=== PATIENT | female | born 1945 | race Caucasian/White ===

== ENCOUNTER → 2018-01-30 14:05 | Outpatient (CLI) | payer MEDICARE, SELFPAY ==
--- NOTE | 2018-01-30 14:25 | RAD_ITS ---
STUDY: X-RAY - LUMBAR SPINE REASON FOR EXAM: Female, 72 years old. Pain TECHNIQUE: 5 view(s) of the lumbar spine were obtained. COMPARISON: None FINDINGS: There is no evidence of fracture or dislocation in the lumbar spine. The vertebral body heights are well-maintained. There are mild degenerative changes noted with disc space narrowing and facet hypertrophy. There are atherosclerotic calcifications noted in the aorta. There are rounded calcifications in the pelvis which likely represent fibroids. RAD/L/S Spine Min 4 Views IMPRESSION: No fracture or dislocation in the lumbar spine. Mild degenerative changes. Atherosclerosis. Rounded calcifications in the pelvis which likely represent fibroids. Electronically Signed: Dereje Huggins, at 16:57 EDT Tel , Service support ,
== END ==
PROVIDERS: Visit Provider Chiropractor
DX: S33.5XXA Sprain of ligaments of lumbar spine, initial encounter (principal)
CPT/HCPCS: 72110

== ENCOUNTER 2020-03-14 12:27 | Emergency (ER) | payer MEDICARE, SELFPAY ==
[2020-03-14 12:28] VITALS: BP 153/90; PULSE 85; RESP 17; TEMP 36.4; O2SAT 98; BMI 29.5
--- NOTE | 2020-03-14 12:32 | EKG12_ITS ---
Test Reason : DIZZINESS Blood Pressure : / mmHG Vent. Rate : 081 BPM Atrial Rate : 081 BPM P-R Int : 166 ms QRS Dur : 082 ms QT Int : 416 ms P-R-T Axes : 065 026 034 degrees QTc Int : 483 ms Normal sinus rhythm Normal ECG Confirmed by FAUSTINO BALDWIN, EDDIE ([id number]), continuity editor JAMIA CHANDLER ([id number]) on 03/17/2020 9:50:01 AM Referred By: MARITZA/ARON Confirmed By:EDDIE HARMON MD
--- NOTE | 2020-03-14 12:32 | CT_ITS ---
STUDY: CT BRAIN WITHOUT CONTRAST REASON FOR EXAM: Female, 75 years old. VERTIGO RADIATION DOSAGE (If Supplied By Facility): CTDIvol = ( 44.99 ) mGy, DLP = ( 745.49 ) mGycm TECHNIQUE: Transaxial CT imaging of the brain was performed without administration of intravenous contrast material. Individualized dose optimization techniques were used for this CT. COMPARISON: No relevant priors. FINDINGS: Normal soft tissue structures. Normal calvarium. Normal size ventricles and extra-axial spaces for the patient''s age. Normal white matter tracts of the cerebral hemispheres. Normal basal ganglia and thalami. Normal brainstem. Normal cerebellum. There is no intracranial hemorrhage. There are no findings of an acute ischemic infarction. Normal visualized paranasal sinuses. CT/Brain/Head without Contrast IMPRESSION: No intracranial hemorrhage or mass effect. Electronically Signed: Ananth Diego MD ([place]) at 13:31 EDT , Service support ,
--- NOTE | 2020-03-14 12:34 | RAD_ITS ---
STUDY: X-RAY CHEST REASON FOR EXAM: Female, 75 years old. SOB, NAUSEA TECHNIQUE: AP COMPARISON: None. FINDINGS: EKG leads project over the chest. The lungs are clear and expanded. There is no demonstrated pleural abnormality. Normal size heart. Normal mediastinum and dario. Normal visualized pulmonary arteries. Normal visualized aortic arch and descending thoracic aorta. Normal visualized thoracic spine. Normal visualized ribs, clavicles, and shoulders. There is a large hiatal hernia. RAD/Chest 1 View (Portable) IMPRESSION: No airspace consolidation or pleural effusion. Large hiatal hernia. Electronically Signed: Ananth Diego MD ([place]) at 13:14 EDT , Service support ,
--- NOTE | 2020-03-14 12:37 | ED.VIS.GEN ---
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 She feels lightheaded in her head but denies a headache. She has had some blurry vision with this but no diplopia. She denies any focal peripheral neurologic symptoms or deficits. She has been able to walk okay but feels worse when she does so. States she has had disequilibrium before and it felt similar to this but cannot remember any details and denies any known history of stroke or TIA. She denies any recent illness or fall/injury, but states she has had intermittent mild vaginal bleeding for multiple months. She cannot remember totally how long. She states that she feels like there is a dropped uterus or bladder or something down there. She does not like to see doctors so she has not had this addressed yet. Daughter called EMS according to the paramedics, and said that she was feeling short of breath although the patient denies this. When postulating whether she was breathing hard when she felt very nauseated, the patient states she thinks that was what it was but she has had no trouble breathing or chest discomfort today. Past Medical History - Allergies and Home Meds Allergies/Adverse Reactions: Allergies venom-honey bee [bee venom (honey bee)] Allergy (Verified 03/14/20 12:33) Unknown Primary Care Physician: Care Physician,No Primary [Primary Care Provider] - Smoking Status: Former smoker Review of Systems General: Reports: Malaise. Denies: Chills, Fever, Sweats Eyes: Denies: Visual changes - bilaterally, Diplopia ENT: Denies: Bilateral ear pain, Rhinorrhea, Sore throat Cardiovascular: Denies: Chest pain, Palpitations, Heart racing Respiratory: Denies: Dyspnea, Cough, Dyspnea on exertion Gastrointestinal: Reports: Nausea, Vomiting. Denies: Abdominal pain, Diarrhea, Melena, Hematochezia Genitourinary: Denies: Dysuria, Hematuria, Frequency Musculoskeletal: Denies: Neck pain, Back pain, Swelling, Extremity Pain Skin: Denies: Rash, Wounds Neurological: Reports: - - Dizziness. See HPI.. Denies: Headache, Weakness, Numbness Physical Exam Vital Signs/Narrative: Vital Signs Temp Pulse Resp BP Pulse Ox 03/14/20 12:28 97.6 F L 85 17 153/90 H 98 Inital Vital Signs reviewed: Yes General: Well nourished, Well developed, No Acute Distress Head: Normocephalic, Atraumatic Eyes: Perrl, EOMI ENT: Moist mucous membranes, No rhinorrhea, TM's clear, - - Posterior oropharynx clear Neck: Supple, Nontender, - - No carotid bruit bilaterally Cardiovascular: Regular rate, Regular rhythm, No murmurs. Negative for: Tachycardia Respiratory: No distress, CTA bilaterally, Chest nontender Abdomen: Soft, Nontender, Nondistended, Normal bowel sounds Back: Nontender, Normal Inspection. Negative for: CVA tenderness Extremities: Nontender, No edema Skin: Normal color, No rash, No Trauma Neurological: Alert, Oriented x3, Cranial nerves II-XII grossly intact, Normal Strength, Normal Sensation, Normal DTR, - - Normal erfswq-qk-luql and manb-vq-spky bilaterally Psychological: Normal affect, Normal Mood Diagnostic/Tx/Re-eval Impressions Brain CT 03/14/20 12:32 IMPRESSION: No intracranial hemorrhage or mass effect. Electronically Signed: Ananth Diego MD ([place]) at 13:31 EDT , Service support , Chest X-Ray 03/14/20 12:34 IMPRESSION: No airspace consolidation or pleural effusion. Large hiatal hernia. Electronically Signed: Ananth Diego MD ([place]) at 13:14 EDT , Service support , 03/14/20 12:32 Brain/Head without Contrast [CT] Stat 03/14/20 12:34 Chest 1 View (Portable) [RAD] Stat Laboratory Results 03/14/20 03/14/20 03/14/20 12:30 12:30 13:40 WBC 11.5 H RBC 4.35 Hgb 14.5 Hct 43.9 MCV 100.9 H MCH 33.3 H MCHC 33.0 RDW Std Deviation 51.8 H RDW Coeff of Venkata 13.8 Plt Count 270 MPV 9.6 Immature Gran % (Auto) 2.300 H Neut % (Auto) 81.4 H Lymph % (Auto) 10.2 L [place] % (Auto) 5.0 Eos % (Auto) 0.3 Baso % (Auto) 0.8 Absolute Neuts (auto) 9.4 H Absolute Lymphs (auto) 1.17 Nucleated RBC % 0 Sodium 138 Potassium 3.8 Chloride 106 Carbon Dioxide 25.0 Anion Gap 7 BUN 15 Creatinine 0.84 Estim Creat Clear Calc 45.06 Est GFR (MDRD) Af Amer 84 Est GFR (MDRD) Non-Af 70 BUN/Creatinine Ratio 17.8 Glucose 125 H Calcium 9.2 Troponin I < 0.015 Urine Color Yellow Urine Clarity Sl. Cloudy Urine pH 5.0 Ur Specific [place] 1.020 Urine Protein 15 H Urine Glucose (UA) Normal Urine Ketones Negative Urine Occult Blood 10 H Urine Nitrite Positive H Urine Bilirubin Negative Urine Urobilinogen Normal Ur Leukocyte Esterase 25 H Urine RBC 0 SEEN Urine WBC 0-5 SEEN Ur Squamous Epith Cells 0 SEEN Urine Bacteria 2+ Urine Mucus 0 SEEN - Rhythm Strip Rhythm Strip: Sinus Rhythm Rate: 80 Ectopy: None - EKG Initial EKG Interpretation: Sinus Rhythm, No Acute Injury Pattern - normal EKG Prior: Unchanged - Medical Decision Making Other than the possibility of a urinary tract infection, patient's work-up is negative and unremarkable. She states she had a history of disequilibrium, and noticed the symptoms when she woke up today, and did say that when she was walking she felt a little off balance, which she initially denied but as she thought about it discussed this later. I think this is probably peripheral vertigo in nature, she felt a little better after meclizine, but was still nauseated even after Zofran. In performing straight catheterization for urine sample, it was noted that she has a very large and prominent uterine prolapse, there is no current bleeding, but evidence of recent light bleeding from the uterus. 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 This could be helping to keep her from emptying her bladder completely and giving her urinary tract infection, which may or may not be related to any of her other symptoms here today. Her urinalysis is ambiguous, but we will assume it could represent infection and send it for culture, started her on an antibiotic. We gave her Reglan in addition, for her persistent nausea, but before that she ambulated and did well. We offered her admission, but she states that she is walking okay and prefers to go home. She does live alone which was recognized. Prescriptions given, discussed reasons to return. Refer to PCP as well as gynecology. ED Disposition - Plan for ED Patient: Disposition: Home or Assisted Living Diagnosis: Peripheral vertigo, Postmenopausal vaginal bleeding, Uterine prolapse, UTI (urinary tract infection) Instructions: ED Vertigo Unspecified, What Is Pelvic Organ Prolapse? Prescriptions: Meclizine HCl [Antivert] 25 mg PO 4X/DAY PRN PRN #16 tab PRN Reason: Dizziness Prescription Printed Cephalexin [Keflex] 500 mg PO Q6 #28 cap Prescription Printed Ondansetron [Zofran Odt] 8 mg PO Q8H PRN PRN #20 tab PRN Reason: Nausea Prescription Printed Referrals: Tiffani Pantoja MD [STAFF PHYSICIAN] - (call for appt) Shady Bardales III, MD [STAFF PHYSICIAN] - (call for appt)
[2020-03-14] MEDS: Ondansetron 4 MG/2 ML Vial IV (12:40)
[2020-03-14 12:42] LABS: Absolute Lymphocyte Count 1.17 X10^3/uL (0.83-4.51); Absolute Neutrophil Count 9.4 X10^3/uL (2.0-7.7); Basophil# 0.09 X10^3/uL; Basophil% 0.8 % (0-1); Eosinophil# 0.03 X10^3/uL; Eosinophils% 0.3 % (0-5); Hematocrit 43.9 % (37-47); Hemoglobin 14.5 g/dL (12.0-15.0); Lymphocyte # 1.17 X10^3/ul (4.0); Lymphocyte % 10.2 % (19-41); Mean Corpuscular Hgb 33.3 pg (27.0-32.0); Mean Corpuscular Volume 100.9 fL (81-99); Mean Platelet Vol. 9.6 fl (6.2-12.0); Monocyte# 0.58 X10^3/uL; NRBC Flagged by Analyzer 0 % (0-5); Neutrophil # 9.39 X10^3/uL (2.7-7.7); Neutrophil % 81.4 % (47-70); Platelet Count 270 K/mm3 (150-450); RBC Distribution Width CV 13.8 % (11.6-14.6); RBC Distribution Width SD 51.8 fl (35.1-43.9); Red Blood Count 4.35 M/mm3 (4.2-5.4); White Blood Count 11.5 K/mm3 (4.4-11.0)
[2020-03-14] MEDS: Meclizine HCl 25 MG Tablet PO (12:54)
[2020-03-14 13:00] LABS: Anion Gap 7 (5-15); BUN 15 mg/dL (7-18); BUN/Creat Ratio 17.8 RATIO (10-20); Calcium,Total 9.2 mg/dL (8.5-10.1); Chloride 106 mmol/L (98-107); Creatinine, Serum 0.84 mg/dL (0.55-1.02); EST Glomerular Filtration Rate 70 mL/min (>60); Est Glom Filt Rate - Afr Amer 84 mL/min (>60); Estimated Creatinine Clearance 45.06 ml/min; Glucose 125 mg/dL (74-106); Potassium 3.8 mmol/L (3.5-5.1); Sodium Level 138 mmol/L (136-145)
[2020-03-14 13:45] LABS: Mucous, Urine 0 SEEN /hpf (<or=2+); Red Blood Cells-Urine 0 SEEN /hpf (0-5); Squamous Epithelial Cells - UA 0 SEEN /hpf (5-10)
[2020-03-14 13:46] LABS: Color, Urine Yellow (Yellow); Glucose, Dipstick Normal (Normal); Ketone-Dipstick Negative (Negative); Leukocyte Esterase-Dipstick 25 /ul (Negative); Nitrite-Dipstick Positive (Negative); Occult Blood-Urine 10 /ul (Negative); Protein-Dipstick 15 mg/dl (Negative); Urine Bilirubin Dipstick Negative (Negative); Urine Clarity Sl. Cloudy (Clear); Urine Urobilinogen Normal (Normal)
[2020-03-14 13:51] LABS: Bacteria 2+ /hpf (None Seen); White Blood Cells 0-5 SEEN /hpf (0-5)
[2020-03-14 14:27] VITALS: BP 156/89; PULSE 79; RESP 16; O2SAT 97
[2020-03-14] MEDS: Metoclopramide 10 MG/2 ML Vial 5 MG IV (15:13)
[2020-03-14 15:35] VITALS: BP 134/83; PULSE 83; RESP 14; O2SAT 96
== END 2020-03-14 15:46 | disposition home or self-care (01) ==
PROVIDERS: Emergency Provider Emergency Medicine
DX: H81.399 Other peripheral vertigo, unspecified ear (principal); N39.0 Urinary tract infection, site not specified; N81.4 Uterovaginal prolapse, unspecified; N95.0 Postmenopausal bleeding; Z87.891 Personal history of nicotine dependence
CPT/HCPCS: 70450; 71045; 80048; 81001; 84484; 85025; 87077; 87086; 87088; 87186; 93005; 96361; 96374; 96375; 99285; J7040; P9612; A4216; J2405

== ENCOUNTER 2021-06-06 10:48 | Emergency (ER) | payer MEDICARE, SELFPAY ==
[2021-06-06 10:49] VITALS: BP 165/107; PULSE 98; RESP 17; TEMP 35.7; O2SAT 96; BMI 24.7
[2021-06-06 11:25] LABS: Absolute Lymphocyte Count 1.19 X10^3/uL (0.83-4.51); Absolute Neutrophil Count 7.3 X10^3/uL (2.0-7.7); Basophil# 0.08 X10^3/uL; Basophil% 0.8 % (0-1); Hematocrit 42.7 % (37-47); Hemoglobin 14.3 g/dL (12.0-15.0); Lymphocyte # 1.19 X10^3/ul (0.83-4.51); Lymphocyte % 11.8 % (19-41); Mean Corp Hgb Conc 33.5 g/dL (32-36); Mean Corpuscular Hgb 32.6 pg (27.0-32.0); Mean Corpuscular Volume 97.5 fL (81-99); Monocyte# 1.06 X10^3/uL; Monocyte% 10.5 % (0-10); NRBC Flagged by Analyzer 0 % (0-5); Neutrophil # 7.32 X10^3/uL (2.7-7.7); Neutrophil % 72.9 % (47-70); Platelet Count 450 K/mm3 (150-450); RBC Distribution Width CV 14.2 % (11.6-14.6); Red Blood Count 4.38 M/mm3 (4.2-5.4); White Blood Count 10.1 K/mm3 (4.4-11.0)
[2021-06-06 11:37] LABS: Anion Gap 9 (5-15); BUN 16 mg/dL (7-18); BUN/Creat Ratio 19.3 RATIO (10-20); Calcium,Total 9.2 mg/dL (8.5-10.1); Chloride 104 mmol/L (98-107); Creatinine, Serum 0.83 mg/dL (0.55-1.02); EST Glomerular Filtration Rate 71 mL/min (>60); Est Glom Filt Rate - Afr Amer 86 mL/min (>60); Estimated Creatinine Clearance 44.89 ml/min; Glucose 115 mg/dL (74-106); Potassium 3.8 mmol/L (3.5-5.1); Sodium Level 137 mmol/L (136-145)
--- NOTE | 2021-06-06 11:37 | EDS_ITS ---
HPI HPI - Female History of Present Illness Chief Complaint: Female C/O Informant: patient Narrative Narrative: Patient presents secondary to bleeding from her prolapsed uterus. Patient states she had a prolapsed uterus for several months to maybe even years. She states it will bleed intermittently but lately has been bleeding heavier. She has not seen a OIL AND G[employer] LEASE PU[employer]ER doctor and states she does not have a primary care doctor. PFSH PFSH Medical History no medical history no medical history Home Medications ascorbic acid (vitamin C) [Vitamin C] 1,000 mg PO DAILY 06/06/21 [History Last Taken Unknown] cholecalciferol (vitamin D3) [Vitamin D3] 25 mcg PO DAILY 06/06/21 [History Last Taken Unknown] [id number]-MI-[id number]-Ji-pyehomg-lutein [Centrum] 1 tab PO DAILY 06/06/21 [History Last Taken Unknown] Allergy/AdvReac Type Severity Reaction Status Date / Time venom-honey bee Allergy Unknown Verified 06/06/21 10:53 [bee venom (honey bee)] Social History Smoking Status: Never smoker ROS ROS ED Constitutional Constitutional ED: Denies chills or fever(s) Eyes Eyes: Denies change in vision ENT ENT ED: Denies sore throat Cardiovascular Cardiovascular: Denies chest pain Respiratory/Chest Respiratory/Chest: Denies cough or dyspnea Gastrointestinal Gastrointestinal: Denies abdominal pain, diarrhea, nausea or vomiting Genitourinary Genitourinary ED: Denies dysuria Musculoskeletal Musculoskeletal: Reports other Details: Back pain ; Denies back pain Integumentary Denies rash Neurologic Neurologic: Denies headache(s) or weakness Allergic/Immunologic Allergic/Immunologic ED: Denies urticaria EXAM Physical Exam Const Vital Signs: 06/06/21 10:49 Temperature 96.2 F L Temperature Source Temporal Pulse Rate 98 Respiratory Rate 17 Blood Pressure 165/107 H Blood Pressure Mean 126 Pulse Ox 96 Oxygen Delivery Method Room Air Positive well nourished and well developed General Appearance ED: well developed Eyes PERRL Neck supple Chest Wall inspection of chest normal and palpation of chest normal Resp normal respiratory effort and clear to auscultation bilaterally Cardio regular rate and regular rhythm GI soft to palpation and non-tender Narrative: Prolapsed uterus noted with a 1 cm diameter ulceration with mild bleeding noted on the inferior aspect. Neuro oriented x3 Sensorium / Orientation: alert Psych mental status grossly normal MDM MDM MDM Narrative Medical decision making narrative: Blood work obtained. Lab Data Attestation: I reviewed the patient's lab results. Labs: Laboratory Results - last 24 hr 06/06/21 06/06/21 06/06/21 11:15 11:15 11:50 WBC 10.1 RBC 4.38 Hgb 14.3 Hct 42.7 MCV 97.5 MCH 32.6 H MCHC 33.5 RDW Std Deviation 51.0 H RDW Coeff of Venkata 14.2 Plt Count 450 MPV 10.0 Immature Gran % (Auto) 2.000 H Neut % (Auto) 72.9 H Lymph % (Auto) 11.8 L [place] % (Auto) 10.5 H Eos % (Auto) 2.0 Baso % (Auto) 0.8 Absolute Neuts (auto) 7.3 Absolute Lymphs (auto) 1.19 Nucleated RBC % 0 PT 13.1 INR 1.1 APTT 31.4 Sodium 137 Potassium 3.8 Chloride 104 Carbon Dioxide 24.0 Anion Gap 9 BUN 16 Creatinine 0.83 Estim Creat Clear Calc 44.89 Est GFR (MDRD) Af Amer 86 Est GFR (MDRD) Non-Af 71 BUN/Creatinine Ratio 19.3 Glucose 115 H Calcium 9.2 Treatment and Re-Evaluation Comments:: Lab work unremarkable. I discussed case with Jacklyn You, on-call for [facility] COMPUTER CUSTOMER SUPPORT SPECIALIST. She stated that patient would need to be seen in the office this week to discuss possible hormone therapy or surgery. Surgifoam and Vaseline gauze were placed over the area along with pads. With this was all discussed with the patient there is no family member in the room that states that she saw An Law this morning and she will see her this week in the office. Discharge Plan Triage Chief Complaint: Female C/O Other Complaint: Vag Bleeding ED Provider: Kya Garcia Dx/Rx/DC Orders Clinical Impression: Uterine prolapse Instructions: Pelvic Organ Prolapse Prescriptions: No Action Vitamin C 1,000 mg Tablet Extended Release 1,000 mg PO DAILY RF: 0 cholecalciferol (vitamin D3) [Vitamin D3] 25 mcg (1,000 unit) Capsule 25 mcg PO DAILY RF: 0 Centrum 0.4-162-18 mg Tablet 1 tab PO DAILY RF: 0 Primary Care Provider: Care Physician,No Primary Referrals: An Law MD [STAFF PHYSICIAN] - As soon as possible Care Physician,No Primary [Primary Care Provider] - Disposition Disposition: Home, Self Care
[2021-06-06 12:25] LABS: International Normalized Ratio 1.1; Prothrombin Time (Protime)PT. 13.1 SECONDS (11.7-14.9)
[2021-06-06 12:26] LABS: Partial Thromboplast Time 31.4 Seconds (24.1-36.2)
== END 2021-06-06 13:17 | disposition home or self-care (01) ==
PROVIDERS: Emergency Provider Emergency Medicine
DX: N81.4 Uterovaginal prolapse, unspecified (principal); N93.9 Abnormal uterine and vaginal bleeding, unspecified
CPT/HCPCS: 80048; 85025; 85610; 85730; 99283; A4216

== ENCOUNTER 2021-07-08 16:14 | Emergency (ER) | payer MEDICARE, SELFPAY ==
[2021-07-08 16:16] VITALS: BP 139/86; PULSE 72; RESP 15; TEMP 36.6; O2SAT 96; BMI 28.6
[2021-07-08 16:35] VITALS: BP 139/86; PULSE 70; RESP 20; O2SAT 96
--- NOTE | 2021-07-08 17:20 | RAD_ITS ---
STUDY: X-RAY CHEST REASON FOR EXAM: Female, 76 years old. Cough. Flu symptoms for one week. TECHNIQUE: Single AP portable view of the chest. COMPARISON: 03/14/2020. FINDINGS: The lungs are clear and expanded. There is no demonstrated pleural abnormality. Normal size heart. Normal mediastinum and dario. Normal visualized pulmonary arteries. Normal visualized aortic arch and descending thoracic aorta. No osseous changes. 10 seen is a large retrocardiac hiatal hernia unchanged from prior study. RAD/Chest 1 View (Portable) IMPRESSION: Retrocardiac hiatal hernia. There is no cardiopulmonary disease or major interval change. Electronically Signed: Angel Geiger DO at 18:03 EST Tel [phone], Service support ,
--- NOTE | 2021-07-08 17:20 | EKG12_ITS ---
Test Reason : WEAKNESS Blood Pressure : / mmHG Vent. Rate : 067 BPM Atrial Rate : 067 BPM P-R Int : 156 ms QRS Dur : 074 ms QT Int : 410 ms P-R-T Axes : 021 010 029 degrees QTc Int : 433 ms Normal sinus rhythm Normal ECG Confirmed by FAUSTINO BALDWIN, EDDIE ([id number]), story editor KENZIE BENTON ([id number]) on 07/21/2021 7:35:15 AM Referred By: JUDY Confirmed By:EDDIE HARMON MD
--- NOTE | 2021-07-08 17:21 | EDS_ITS ---
HPI History of Present Illness Chief Complaint: Weakness Informant: patient Narrative Narrative: Patient states that she just has not felt well this week. She thinks it might of started Sunday but not sure. She had a cough once or twice but that is not continuing and she is not short of breath. She never had sputum production. She has no nasal congestion. No myalgias. No chest pain. No abdominal pain she has had nausea but never vomited. But she admits she is just not eating and drinking because of the nausea. She has had some watery diarrhea several times but no blood. She denies urinary symptoms. She denies fevers. She is not immunized against Covid. Patient has no chronic medical conditions Medications include vitamins only No known drug allergies No abdominal surgeries Non-smoker lives independently [facility] Home Medications ascorbic acid (vitamin C) [Vitamin C] 1,000 mg PO DAILY 06/06/21 [History Last Taken Unknown] cholecalciferol (vitamin D3) [Vitamin D3] 25 mcg PO DAILY 06/06/21 [History Last Taken Unknown] uh-[id number]-XD-Zf-Nz-lnvlbvv-lutein [Centrum] 1 tab PO DAILY 06/06/21 [History Last Taken Unknown] ondansetron 4 mg PO Q8H PRN #10 tab 07/08/21 [Rx Last Taken Unknown] Allergy/AdvReac Type Severity Reaction Status Date / Time venom-honey bee Allergy Unknown Verified 06/06/21 10:53 [bee venom (honey bee)] Social History Smoking Status: Never smoker ROS ROS ED Constitutional Constitutional ED: Denies chills, fever(s) or subjective Eyes Eyes: Denies change in vision ENT ENT ED: Denies rhinorrhea or sore throat Cardiovascular Cardiovascular: Denies chest pain Respiratory/Chest Respiratory/Chest: Reports cough; Denies dyspnea, dyspnea on exertion or sputum Gastrointestinal Gastrointestinal: Reports diarrhea and nausea; Denies abdominal pain or vomiting Genitourinary Genitourinary ED: Denies dysuria or hematuria Musculoskeletal Musculoskeletal: Denies arthralgias or myalgias Integumentary Denies rash Neurologic Neurologic: Denies headache(s) or weakness Psychiatric Psychiatric: Denies anxiety or depression Endocrine Endocrinology: Denies polydipsia or polyuria Allergic/Immunologic Allergic/Immunologic ED: Denies mouth swelling or urticaria EXAM Physical Exam Const Vital Signs: 07/08/21 16:16 07/08/21 16:18 07/08/21 16:35 Temperature 97.8 F Temperature Source Oral Pulse Rate 72 70 Respiratory Rate 15 20 H Respiratory Effort Normal Non-Labored Respiratory Pattern Normal Blood Pressure 139/86 H 139/86 H Blood Pressure Mean 103 103 Pulse Ox 96 96 Oxygen Delivery Method Room Air Room Air 07/08/21 18:39 Temperature Temperature Source Pulse Rate 85 Respiratory Rate 16 Respiratory Effort Respiratory Pattern Blood Pressure 158/95 H Blood Pressure Mean 116 Pulse Ox 98 Oxygen Delivery Method Room Air Positive well nourished and well developed General Appearance ED: well developed and NAD; Negative for cyanotic, diaphoretic or pallor HEENT Reports dry mucous membranes Mouth ED: Yes dry mucous membranes Mouth: dry mucous membranes Eyes General Eye ED: Negative for pale conjunctiva or scleral icterus Neck no JVD Chest Wall inspection of chest normal Resp normal respiratory effort and clear to auscultation bilaterally Effort and Inspection: Negative for pain with movement Auscultation: Negative for rales, rhonchi or wheezes Cardio regular rate and regular rhythm GI normal to inspection, nondistended, normoactive bowel sounds and non-tender Palpation: soft Back/Spine no CVA tenderness Extremity normal to inspection General Extremety ED: Negative for edema or tenderness General Extremity: Negative for edema Neuro oriented x3 Sensorium / Orientation: alert Psych mental status grossly normal Skin no rashes or lesions noted General Skin Exam: Negative for jaundice or pallor MDM MDM MDM Narrative Medical decision making narrative: Patient's blood work showed no marked abnormalities. CBC electrolytes overall look good. Urine had a few white cells but it was clear with negative nitrites. She does not have dysuria. We will send a culture on this but not treated at this time as it is asymptomatic white cells. Chest x-ray showed no significant changes. Her Covid was positive. Patient is treated with meds for nausea. She did feel better. She has been up walking in the department. She walks to the bathroom easily. She does not desaturate. We will get her home. I did discuss this with her granddaughter per the patient's wishes. Granddaughter is comfortable with her going home but does not want to drive her home because she has lupus and would prefer not to be in the car with somebody with Covid. We will help arrange transport. We discussed reasons to return. We also discussed monoclonal therapy. Lab Data Attestation: I reviewed the patient's lab results. Labs: Laboratory Results - last 24 hr 07/08/21 07/08/21 07/08/21 17:35 17:35 18:10 WBC 9.2 RBC 4.32 Hgb 13.9 Hct 41.6 MCV 96.3 MCH 32.2 H MCHC 33.4 RDW Std Deviation 52.4 H RDW Coeff of Venkata 14.7 H Plt Count 360 MPV 9.8 Immature Gran % (Auto) 1.600 H Neut % (Auto) 72.8 H Lymph % (Auto) 10.9 L [place] % (Auto) 13.8 H Eos % (Auto) 0.5 Baso % (Auto) 0.4 Absolute Neuts (auto) 6.7 Absolute Lymphs (auto) 1.00 Nucleated RBC % 0 Sodium 137 Potassium 4.0 Chloride 104 Carbon Dioxide 25.0 Anion Gap 8 BUN 11 Creatinine 0.81 Estim Creat Clear Calc 46.00 Est GFR (MDRD) Af Amer 88 Est GFR (MDRD) Non-Af 73 BUN/Creatinine Ratio 13.5 Glucose 100 Calcium 9.3 Urine Color Yellow Urine Clarity Clear Urine pH 7.0 Ur Specific [place] 1.010 Urine Protein Negative Urine Glucose (UA) Normal Urine Ketones 5 H Urine Occult Blood Negative Urine Nitrite Negative Urine Bilirubin Negative Urine Urobilinogen Normal Ur Leukocyte Esterase 500 H Urine RBC 0 SEEN Urine WBC 5-10 SEEN Ur Squamous Epith Cells 0 SEEN Urine Bacteria 1+ Urine Mucus 0 SEEN Radiography Diagnostic Testing: Clinical Impression(s) from Imaging Studies Chest X-Ray 07/08/21 17:20 IMPRESSION: Retrocardiac hiatal hernia. There is no cardiopulmonary disease or major interval change. Electronically Signed: Angel Geiger DO at 18:03 EST Tel [phone], Service support , Discharge Plan Triage Chief Complaint: Weakness ED Provider: Ej Herbert Dx/Rx/DC Orders Clinical Impression: Nausea, COVID-19 Instructions: Coronavirus Disease 2019 (COVID-19): Caring for Yourself or Others Prescriptions: New ondansetron 4 mg tablet,disintegrating 4 mg PO Q8H PRN (Reason: nausea and vomiting) Qty: 10 RF: 0 No Action Vitamin C 1,000 mg Tablet Extended Release 1,000 mg PO DAILY RF: 0 cholecalciferol (vitamin D3) [Vitamin D3] 25 mcg (1,000 unit) Capsule 25 mcg PO DAILY RF: 0 Centrum 0.4-162-18 mg Tablet 1 tab PO DAILY RF: 0 Primary Care Provider: Pritesh Carvajal Referrals: Pritesh Carvajal MD [Primary Care Provider] - 1 Week if not improving Disposition Disposition: Home, Self Care
[2021-07-08] MEDS: Ondansetron 4 MG/2 ML Vial IV (17:47)
[2021-07-08] MEDS: 0.9% Normal Saline 1,000 ML 1000 ML IV (17:47)
[2021-07-08 17:48] LABS: Absolute Neutrophil Count 6.7 X10^3/uL (2.0-7.7); Basophil# 0.04 X10^3/uL; Basophil% 0.4 % (0-1); Eosinophil# 0.05 X10^3/uL; Eosinophils% 0.5 % (0-5); Hematocrit 41.6 % (37-47); Hemoglobin 13.9 g/dL (12.0-15.0); Lymphocyte % 10.9 % (19-41); Mean Corp Hgb Conc 33.4 g/dL (32-36); Mean Corpuscular Hgb 32.2 pg (27.0-32.0); Mean Corpuscular Volume 96.3 fL (81-99); Mean Platelet Vol. 9.8 fl (6.2-12.0); Monocyte# 1.26 X10^3/uL; Monocyte% 13.8 % (0-10); NRBC Flagged by Analyzer 0 % (0-5); Neutrophil # 6.65 X10^3/uL (2.7-7.7); Neutrophil % 72.8 % (47-70); Platelet Count 360 K/mm3 (150-450); RBC Distribution Width CV 14.7 % (11.6-14.6); RBC Distribution Width SD 52.4 fl (35.1-43.9); Red Blood Count 4.32 M/mm3 (4.2-5.4); White Blood Count 9.2 K/mm3 (4.4-11.0)
[2021-07-08 18:04] LABS: Anion Gap 8 (5-15); BUN 11 mg/dL (7-18); BUN/Creat Ratio 13.5 RATIO (10-20); Calcium,Total 9.3 mg/dL (8.5-10.1); Chloride 104 mmol/L (98-107); Creatinine, Serum 0.81 mg/dL (0.55-1.02); EST Glomerular Filtration Rate 73 mL/min (>60); Est Glom Filt Rate - Afr Amer 88 mL/min (>60); Glucose 100 mg/dL (74-106); Sodium Level 137 mmol/L (136-145)
[2021-07-08 18:27] LABS: Mucous, Urine 0 SEEN /hpf (<or=2+); Squamous Epithelial Cells - UA 0 SEEN /hpf (5-10)
[2021-07-08 18:28] LABS: Color, Urine Yellow (Yellow); Glucose, Dipstick Normal (Normal); Ketone-Dipstick 5 mg/dl (Negative); Leukocyte Esterase-Dipstick 500 /ul (Negative); Nitrite-Dipstick Negative (Negative); Occult Blood-Urine Negative /ul (Negative); Protein-Dipstick Negative (Negative); Urine Bilirubin Dipstick Negative (Negative); Urine Clarity Clear (Clear); Urine Urobilinogen Normal (Normal)
[2021-07-08 18:39] VITALS: BP 158/95; PULSE 85; RESP 16; O2SAT 98
[2021-07-08 18:51] VITALS: O2SAT 96
--- NOTE | 2021-07-08 18:52 | ED.RN ---
Pt tolerated ambulation about 40ft. well states she had slight dizziness at midway point.No difficulty finishing task.
[2021-07-08 19:12] LABS: Red Blood Cells-Urine 0 SEEN /hpf (0-5); White Blood Cells 5-10 SEEN /hpf (0-5)
[2021-07-08 19:13] LABS: Bacteria 1+ /hpf (None Seen)
[2021-07-08] MEDS: proMETHazine 25 MG/ML Syringe 12.5 MG IM (19:24)
== END 2021-07-08 22:15 | disposition home or self-care (01) ==
PROVIDERS: Emergency Provider Emergency Medicine; PCP Internal Medicine
DX: U07.1 COVID-19 (principal); R11.0 Nausea
CPT/HCPCS: 71045; 80048; 81001; 85025; 87077; 87086; 87088; 87186; 87426; 93005; 96361; 96372; 96374; 99285; J2405

== ENCOUNTER 2021-07-13 13:39 | Outpatient (CLI) | payer MEDICARE, SELFPAY ==
[2021-07-13 13:47] VITALS: BP 153/87; PULSE 91; RESP 16; TEMP 36.9; O2SAT 99; BMI 26.5
[2021-07-13] MEDS: 0.9% Saline Lock 10 ML Syringe IV (13:54)
[2021-07-13 14:15] VITALS: BP 143/86; PULSE 71; RESP 16; TEMP 36.4; O2SAT 98
[2021-07-13 15:13] VITALS: BP 154/82; PULSE 66; RESP 16; TEMP 36.8; O2SAT 99
== END 2021-07-13 23:59 | disposition home or self-care (01) ==
LOC: MS3OUT 13:40 → MS3 13:41
PROVIDERS: PCP Internal Medicine; Visit Provider Emergency Medicine
DX: U07.1 COVID-19 (principal)
CPT/HCPCS: J7050; M0243; A4216; Q0240

== ENCOUNTER 2022-01-02 10:21 | Emergency (ER) | payer MEDICARE, SELFPAY ==
[2022-01-02 10:22] VITALS: BP 126/85; PULSE 106; RESP 17; TEMP 36.7; O2SAT 96; BMI 27.8
[2022-01-02 11:24] LABS: Mucous, Urine 0 SEEN /hpf (<or=2+); Red Blood Cells-Urine 0 SEEN /hpf (0-5)
[2022-01-02 11:27] LABS: Color, Urine Yellow (Yellow); Glucose, Dipstick Normal (Normal); Ketone-Dipstick Negative (Negative); Leukocyte Esterase-Dipstick 500 /ul (Negative); Nitrite-Dipstick Negative (Negative); Occult Blood-Urine Negative /ul (Negative); Protein-Dipstick Negative (Negative); Specific Gravity, Urine 1.015 (1.002-1.030); Urine Bilirubin Dipstick Negative (Negative); Urine Clarity Clear (Clear); Urine Urobilinogen Normal (Normal)
--- NOTE | 2022-01-02 11:27 | EX.ED.DYSGE1 ---
HPI History of Present Illness Chief Complaint: Flank Pain Informant: patient Narrative Narrative: 76-year-old female presented to the emergency room with bilateral flank pain. Patient states that pain began about 3 days ago. She describes it as bilateral across the low back. Its was worse with moving but has gotten better. She is concerned about kidney stone or kidney infection. She denies any dysuria urinary frequency or hematuria. No nausea vomiting or fevers. No rashes. No radiation of the pain to the legs. She does note that she had some abdominal pain with this but that has since resolved. PFSH PFSH Home Medications ascorbic acid (vitamin C) 1,000 mg tablet,extended release (Vitamin C ER) 1,000 mg PO DAILY 06/06/21 [History Last Taken Unknown] cholecalciferol (vitamin D3) 25 mcg (1,000 unit) capsule (Vitamin D3) 25 mcg PO DAILY 06/06/21 [History Last Taken Unknown] yvvcgmji-jhp-NB 0.4 mg-calcium 162 mg-iron 18 ku-edwjahc-dvcxil tablet 1 tab PO DAILY 06/06/21 [History Last Taken Unknown] ondansetron 4 mg disintegrating tablet 4 mg PO Q8H PRN nausea and vomiting #10 tabs 07/08/21 [Rx Last Taken Unknown] hydrocodone-acetaminophen 5-325mg 5mg-325mg 1 tab PO Q6H PRN PRN Pain 3 days #12 TABLETS 01/02/22 [Rx Last Taken Unknown] hydrocortisone 1 %-pramoxine 1 % rectal foam (Proctofoam HC) 1 applic NH TID PRN hemorrhoids #10 grams 01/02/22 [Rx Last Taken Unknown] sulfamethoxazole 800 mg-trimethoprim 160 mg tablet 1 tab PO BID #20 TABLETS 01/02/22 [Rx Last Taken Unknown] Allergy/AdvReac Type Severity Reaction Status Date / Time venom-honey bee Allergy Unknown Verified 01/02/22 10:21 [bee venom (honey bee)] Social History (Updated 01/02/22 @ 11:[address] Edward Jeffers, ) Smoking Status: Never smoker substance use type: does not use ROS ROS ED Constitutional Constitutional ED: Denies chills, fever(s) or weight loss Eyes Eyes: Denies change in vision or diplopia ENT ENT ED: Denies ear pain, rhinorrhea or sore throat Cardiovascular Cardiovascular: Denies chest pain, orthopnea, palpitations or racing heartbeat Respiratory/Chest Respiratory/Chest: Denies cough, dyspnea or orthopnea Gastrointestinal Gastrointestinal: Reports abdominal pain; Denies diarrhea, nausea or vomiting Genitourinary Genitourinary ED: Denies dysuria, hematuria or urinary frequency Musculoskeletal Musculoskeletal: Reports back pain; Denies arthralgias or myalgias Integumentary Denies abscess or rash Neurologic Neurologic: Denies headache(s) or weakness Psychiatric Psychiatric: Denies anxiety, depression, suicidal ideation or suicidal thoughts Endocrine Endocrinology: Denies polydipsia, polyphagia or polyuria Allergic/Immunologic Allergic/Immunologic ED: Denies mouth swelling, tongue swelling or urticaria EXAM Physical Exam Const Vital Signs: 01/02/22 10:22 Temperature 98.1 F Temperature Source Temporal Pulse Rate 106 H Respiratory Rate 17 Blood Pressure 126/85 H Blood Pressure Mean 98 Pulse Ox 96 Oxygen Delivery Method Room Air Positive well nourished and well developed General Appearance ED: well developed HEENT Reports normocephalic, head/scalp atraumatic and moist mucous membranes Eyes PERRL and EOMs intact bilaterally Neck no lymphadenopathy, supple and no JVD Resp normal respiratory effort and clear to auscultation bilaterally Cardio regular rate, regular rhythm and no murmurs GI normal to inspection, nondistended, normoactive bowel sounds and non-tender Palpation: soft Back/Spine no CVA tenderness and normal ROM Back/Spine Narrative: Patient reports tenderness to palpation in the lumbar paraspinal musculature. I do not see any rashes. There does not appear to be any tissue texture changes to suggest underlying infection. Extremity normal to inspection General Extremety ED: Negative for edema General Extremity: Negative for edema Neuro oriented x3 and CN's II-XII intact bilaterally Sensorium / Orientation: alert Motor Exam: strength 5/5 throughout Psych mental status grossly normal Mood & Affect: Negative for depressed or tearful Skin no rashes or lesions noted and no wounds MDM MDM MDM Narrative Medical decision making narrative: Urinalysis demonstrates 25-50 white cells 2+ bacteria positive leukocyte Estrace negative nitrates. CT of the ab pelvis demonstrates renal cyst but no obvious kidney stone or perinephric stranding. Patient is requesting a prescription for her hemorrhoidal pain. I will also provide her prescription for antibiotics and pain medication. She is to return if worsening or concerns or follow-up with primary care Lab Data Attestation: I reviewed the patient's lab results. Labs: Laboratory Results - last 24 hr 01/02/22 11:05 Urine Color Yellow Urine Clarity Clear Urine pH 6.0 Ur Specific [place] 1.015 Urine Protein Negative Urine Glucose (UA) Normal Urine Ketones Negative Urine Occult Blood Negative Urine Nitrite Negative Urine Bilirubin Negative Urine Urobilinogen Normal Ur Leukocyte Esterase 500 H Urine RBC 0 SEEN Urine WBC 25-50 SEEN Ur Squamous Epith Cells 0-5 SEEN Urine Bacteria 2+ Urine Mucus 0 SEEN Radiography Diagnostic Testing: Clinical Impression(s) from Imaging Studies Abdomen/Pelvis CT 01/02/22 11:42 IMPRESSION: 1. Prominent hypodense lesion in the left posterior renal parenchyma with CT number of 9.83 [place] units. This is simple cyst. No follow-up is needed. 2. 9.4 mm hypodense lesion in the right anterior renal cortex. It is too small to confirm cystic or solid. It is most likely cyst. No follow-up is needed. 3. No CT evidence of stones in the kidneys, ureters and urinary bladder. 4. Normal CT of the appendix. 5. No acute abnormality in the abdomen and pelvis. 6. Large gastric hernia with air-fluid levels in the posterior mediastinum extending to the left chest. 7. Radiopaque foreign body device inside the vaginal vault. 8. Prominent posterior calcified uterine fibroids. 9. Multiple old compression fractures involving T12, upper L1, L3 and upper L4 vertebral bodies. 10. Mild degenerative anterolisthesis of L5 on S1. 11. Pronounced left L5-S1 degenerative facet arthropathy. Electronically Signed: Giovanni Kang MD at 12:04 EDT , Discharge Plan Triage Chief Complaint: Flank Pain ED Provider: Edward Jeffers Dx/Rx/DC Orders Clinical Impression: Acute pyelonephritis Instructions: ED Pyelonephritis, Female (Adult) Prescriptions: New hydrocodone-acetaminophen [hydrocodone-acetaminophen] 5-325 mg tablet 1 tab PO Q6H PRN PRN (Reason: Pain) 3 Days Qty: 12 0RF sulfamethoxazole-trimethoprim [sulfamethoxazole-trimethoprim] 800-160 mg tablet 1 tab PO BID Qty: 20 0RF Proctofoam HC 1-1 % foam 1 applic NH TID PRN (Reason: hemorrhoids) Qty: 10 0RF No Action Vitamin C 1,000 mg Tablet Extended Release 1,000 mg PO DAILY cholecalciferol (vitamin D3) [Vitamin D3] 25 mcg (1,000 unit) Capsule 25 mcg PO DAILY Centrum 0.4-162-18 mg Tablet 1 tab PO DAILY ondansetron 4 mg tablet,disintegrating 4 mg PO Q8H PRN (Reason: nausea and vomiting) Qty: 10 0RF Primary Care Provider: Pritesh Carvajal Referrals: Pritesh Carvajal MD [Primary Care Provider] - 1 Week if not improving Disposition Disposition: Home, Self Care
[2022-01-02 11:32] LABS: Bacteria 2+ /hpf (None Seen); Squamous Epithelial Cells - UA 0-5 SEEN /hpf (5-10); White Blood Cells 25-50 SEEN /hpf (0-5)
--- NOTE | 2022-01-02 11:42 | CT_ITS ---
EXAM: CT ABDOMEN AND PELVIS WITHOUT INTRAVENOUS CONTRAST CLINICAL INDICATION: Flank pain. TECHNIQUE: Helically acquired images were obtained of the abdomen and pelvis without intravenous contrast. This CT exam was performed using one or more of the following dose reduction techniques: automated exposure control, adjustment of the mA and/or kV according to patient size, and/or use of iterative reconstruction technique. This report was created using [employer] report generation technology. RADIATION DOSE: CTDIvol = 7.30 mGy, DLP = 450.19 mGy-cm COMPARISON: None. FINDINGS: LOWER THORAX: Unremarkable. Lung bases are clear. No cardiomegaly. No significant pericardial effusion. ABDOMEN: LIVER: Unremarkable. Homogeneous. GALLBLADDER AND BILE DUCTS: Unremarkable. No calcified gallstones. No gallbladder distention or wall edema. No intra- or extrahepatic biliary ductal dilation. PANCREAS: Unremarkable. No focal cystic mass. SPLEEN: Unremarkable. Normal size without focal cystic or solid mass. ADRENALS: Unremarkable. No nodules. KIDNEYS AND URETERS: Ill-defined hypodense lesion in the medial aspect of the left kidney has CT number of 9.83 HOUNSFIELD units. This is most likely benign simple cyst. No stones or hydronephrosis in both kidneys. Prominent right extrarenal pelvis. 9.4 mm hypodense lesion in the anterior cortex of the right kidney. It is too small to confirm cystic or solid. It is most likely cyst. Normal renal size and position. STOMACH AND BOWEL: Unremarkable. No stomach or bowel distention. No focal inflammatory change. PELVIS: APPENDIX: Normal. BLADDER: Unremarkable. REPRODUCTIVE: Common posterior calcified uterine fibroids. ABDOMEN and PELVIS: INTRAPERITONEAL SPACE: Unremarkable. No ascites or other fluid collection. No free air. BONES/JOINTS: Old compression fractures involving T12, upper L1, lower L3 and upper L4 vertebral bodies. Mild degenerative anterolisthesis of L5 on S1. Pronounced left L5-S1 degenerative facet arthropathy. No suspicious lytic or blastic abnormality. SOFT TISSUES: Large gastric hernia containing air-fluid level in the posterior mediastinum extends to the left side of the chest. VASCULATURE: Calcified plaques along the abdominal aorta but no dilatation or demonstrated narrowing. LYMPH NODES: Unremarkable. No enlarged lymph nodes. TUBES, LINES AND DEVICES: Radiopaque foreign body device inside the vaginal vault. CT/Abdomen/Pelvis without Cont IMPRESSION: 1. Prominent hypodense lesion in the left posterior renal parenchyma with CT number of 9.83 HOUNSFIELD units. This is simple cyst. No follow-up is needed. 2. 9.4 mm hypodense lesion in the right anterior renal cortex. It is too small to confirm cystic or solid. It is most likely cyst. No follow-up is needed. 3. No CT evidence of stones in the kidneys, ureters and urinary bladder. 4. Normal CT of the appendix. 5. No acute abnormality in the abdomen and pelvis. 6. Large gastric hernia with air-fluid levels in the posterior mediastinum extending to the left chest. 7. Radiopaque foreign body device inside the vaginal vault. 8. Prominent posterior calcified uterine fibroids. 9. Multiple old compression fractures involving T12, upper L1, L3 and upper L4 vertebral bodies. 10. Mild degenerative anterolisthesis of L5 on S1. 11. Pronounced left L5-S1 degenerative facet arthropathy. Electronically Signed: Giovanni Kang MD at 12:04 EDT ,
[2022-01-02] MEDS: Ketorolac 15 MG/ML Vial IV (13:14)
[2022-01-02 13:33] VITALS: RESP 17
== END 2022-01-02 13:34 | disposition home or self-care (01) ==
PROVIDERS: Emergency Provider Emergency Medicine; PCP Internal Medicine; Visit Provider Emergency Medicine
DX: N10 Acute pyelonephritis (principal); N28.1 Cyst of kidney, acquired
CPT/HCPCS: 74176; 81001; 87077; 87086; 87088; 87186; 96374; 99283; A4216

== ENCOUNTER 2022-11-29 17:53 | Emergency (ER) | payer MEDICARE, SELFPAY ==
[2022-11-29 17:55] VITALS: BP 162/93; PULSE 69; RESP 14; TEMP 36.4; O2SAT 97; BMI 27.0
--- NOTE | 2022-11-29 18:23 | EX.ED.DYSGE1 ---
HPI History of Present Illness Chief Complaint: General Illness Informant: patient Narrative Narrative: Patient comes in with some intermittent lightheadedness feeling over the last 3 or so weeks. She states sometimes she feels like she is spinning sometimes she is just lightheaded. She has never fallen. She felt like she almost passed out today. She thinks she might have an ear infection as this is happened before but she is not having ear pain. She has no headache. No focal lateralizing numbness tingling or weakness. No coughing shortness of breath chest pain abdominal pain nausea vomiting diarrhea or dysuria. This patient states that she takes no medications at all now. The only thing she takes is ufae-sab-ybaxlfd vitamins. None of these are new or different. There is nothing that consistently makes her symptoms better or worse. The reason she came in is that she wanted to make sure that she did not have sepsis. She is heard sepsis is dangerous and can make you weak so she wanted to make sure she was not septic. She has not had any fevers [facility] Medical History Kidney disease Home Medications ascorbic acid (vitamin C) 1,000 mg tablet,extended release (Vitamin C ER) 1,000 mg PO DAILY 06/06/21 [History Last Taken Unknown] cholecalciferol (vitamin D3) 25 mcg (1,000 unit) capsule (Vitamin D3) 25 mcg PO DAILY 06/06/21 [History Last Taken Unknown] lbocgjwm-sqa-GC 0.4 mg-calcium 162 mg-iron 18 dm-gmmblte-jmmntl tablet 1 tab PO DAILY 06/06/21 [History Last Taken Unknown] ondansetron 4 mg disintegrating tablet 4 mg PO Q8H PRN nausea and vomiting #10 tabs 07/08/21 [Rx Last Taken Unknown] hydrocodone-acetaminophen 5-325mg 5mg-325mg 1 tab PO Q6H PRN PRN Pain 3 days #12 TABLETS 01/02/22 [Rx Last Taken Unknown] hydrocortisone 1 %-pramoxine 1 % rectal foam (Proctofoam HC) 1 applic MI TID PRN hemorrhoids #10 grams 01/02/22 [Rx Last Taken Unknown] sulfamethoxazole 800 mg-trimethoprim 160 mg tablet 1 tab PO BID #20 TABLETS 01/02/22 [Rx Last Taken Unknown] Allergy/AdvReac Type Severity Reaction Status Date / Time venom-honey bee Allergy Unknown Verified 11/29/22 17:59 [bee venom (honey bee)] Social History Smoking Status: Never smoker substance use type: does not use ROS ROS ED ROS Narrative A complete review of systems was performed and is negative except as documented in the history of present illness. Some specific details below. Constitutional: No recent fevers or chills. No malaise. EYE: No visual complaints or pain. No visual field cuts. No eye discharge. ENT: No difficulty swallowing. No swelling. No pain. CV: No chest pain or palpitations. Even when she has felt lightheaded she has had no palpitations. Respiratory: No dyspnea. No hemoptysis. No difficulty taking breaths. No sputum. GI: No nausea vomiting diarrhea. She has been eating normally. She does admit to some mild constipation but that is chronic and unchanged. No blood in the stool. : No frequency dysuria or hematuria. Musculoskeletal: No recent trauma. No pains. Skin: No rash. Nondiaphoretic. No diaphoresis even when she has her lightheadedness episodes. Neuro: No focal weakness or numbness. Endocrine: No polyuria or polydipsia. EXAM Physical Exam Narrative Exam Narrative: CONSTITUTIONAL: Patient is nontoxic in appearance. The patient looks comfortable. Work of breathing looks normal. She is sitting comfortably in bed. HEENT: No notable trauma. Mucous membranes mildly dry. No sinus tenderness. No indication of pain with swallowing. Tympanic membrane is normal on the left. On the right side she does have cerumen impaction. EYES: No conjunctival injection. No proptosis. NECK:No JVD. No stridor. CARDIOVASCULAR: Regular rate. Regular rhythm. No notable murmur. No JVD. welt butter hand appears to be in normal sinus rhythm with a rate of about 75. I see no ectopy on the monitor. RESPIRATORY: No respiratory distress. Breathing is unlabored. No wheezes. No rhonchi. No rales. No pain with a deep breath. No chest wall tenderness. O2 saturation is normal at 97% on room air showing no hypoxia. GASTROINTESTINAL: Not distended. Bowel sounds are normal. No tenderness. No guarding. No rebound. No palpable mass. No bruit is heard. GENITOURINARY: No tenderness over the bladder. No CVA tenderness. MUSCULOSKELETAL: Atraumatic. No peripheral edema. No cord. No tenderness along the deep venous system. No asymmetry. No distended veins. Patient was concerned that her toes are causing sepsis. She has chronic fungal infection of the toenails but there is no sign of bacterial secondary infection whatsoever. No erythema warmth tenderness or lymphangitic streaking. NEUROLOGICAL: Patient is alert and appropriate. No focal deficit noted. SKIN: No noted rashes. No diaphoresis. PSYCHIATRIC: Patient is calm. Mood is appropriate. Const Vital Signs: 11/29/22 17:55 11/29/22 18:00 11/29/22 19:57 Temperature 97.6 F L Temperature Source Oral Pulse Rate 69 90 Respiratory Rate 14 17 Respiratory Effort Normal Non-Labored Respiratory Pattern Normal Blood Pressure 162/93 H 150/85 H Blood Pressure Mean 116 106 Pulse Ox 97 97 Oxygen Delivery Method Room Air Room Air MDM MDM MDM Narrative Medical decision making narrative: Patient CBC does show mildly high white count hemoglobin and platelets. Slightly high neutrophils. Patient's electrolytes show no marked abnormalities. Glucose was slightly high. Calcium was normal at 10.1. My independent interpretation of the patient's single view chest x-ray shows obvious hiatal hernia but no other acute process. Final reading is similar. CT scan of the head shows atrophy and chronic changes but no acute process. Patient's urinalysis showed no sign of infection Patient's walked to the bathroom a few times. She does feel better. She states she thinks it might be her glasses that are bothering her. There is no ataxic gait. No neurologic symptoms. She has been having these issues for a while. She tells me she has not actually passed out but she has felt like she was close to passing out or maybe just falling. Some of this might even be from the cerumen impaction on the right. We have tried to irrigate this but the wax is just too firm. Not able to pull this out. She put some hydrogen peroxide at home. I explained she should keep doing that about twice a day for the next week and this hopefully will get that soft enough to come out. She is comfortable going home. I have no in location or reason to admit her to the hospital at this time. We did discussed reasons to return. She also asked about treatment for her toe fungus. Seems like one of her greatest concerns was having sepsis from her toes. I explained that this will not cause sepsis. These are chronic fungal infections. No sign of bacterial infection. She can count contact her primary physician about long-term treatment for that. Lab Data Attestation: I reviewed the patient's lab results. Labs: Laboratory Results - last 24 hr 11/29/22 11/29/22 11/29/22 18:53 18:53 19:40 WBC 13.4 H RBC 5.29 Hgb 15.8 H Hct 49.8 H MCV 94.1 MCH 29.9 MCHC 31.7 L RDW Std Deviation 47.6 H RDW Coeff of Venkata 13.6 Plt Count 770 H* MPV 9.4 Immature Gran % (Auto) 1.700 H Neut % (Auto) 73.5 H Lymph % (Auto) 12.0 L Runnels % (Auto) 8.3 Eos % (Auto) 2.9 Baso % (Auto) 1.6 H Absolute Neuts (auto) 9.8 H Absolute Lymphs (auto) 1.60 Nucleated RBC % 0 Differential Comment SEE COMMENT Diff Path Review May foll Platelet Estimate MKD INC RBC Morphology N CHROM Anisocytosis RARE Macrocytosis RARE Sodium 137 Potassium 4.2 Chloride 103 Carbon Dioxide 27.0 Anion Gap 7 BUN 14 Creatinine 0.87 Estim Creat Clear Calc 42.15 Est GFR (MDRD) Af Amer 81 Est GFR (MDRD) Non-Af 67 BUN/Creatinine Ratio 16.1 Glucose 109 H Calcium 10.1 Urine Color Yellow Urine Clarity Clear Urine pH 6.5 Ur Specific [place] 1.010 Urine Protein Negative Urine Glucose (UA) Normal Urine Ketones Negative Urine Occult Blood Negative Urine Nitrite Negative Urine Bilirubin Negative Urine Urobilinogen Normal Ur Leukocyte Esterase 500 H Urine RBC 0 SEEN Urine WBC 0-5 SEEN Ur Squamous Epith Cells 0-5 SEEN Urine Bacteria 0 SEEN Urine Mucus 0 SEEN Radiography Diagnostic Testing: Clinical Impression(s) from Imaging Studies Brain CT 11/29/22 18:27 IMPRESSION: Atrophy and moderate periventricular white matter ischemic changes. No acute bleed. If concern for acute infarct MRI recommended.. Electronically Signed: Zheng Vail MD at 19:23 EDT , Chest X-Ray 11/29/22 19:06 IMPRESSION: Large intrathoracic hiatal hernia. No acute cardiopulmonary pathology. Electronically Signed: Zheng Vail MD at 19:20 EDT , EKG Initial EKG: Comments: My independent interpretation the patient's EKG done for generalized weakness shows a normal sinus rhythm with overall rate of 79. Mild baseline variation but no sign of acute ST elevation or depression. MI interval, QRS duration and QTc are normal. Discharge Plan Triage Chief Complaint: General Illness ED Provider: Ej Herbert Dx/Rx/DC Orders Clinical Impression: Episodic lightheadedness Instructions: ED Dizziness, Uncertain Cause Prescriptions: No Action Vitamin C 1,000 mg Tablet Extended Release 1,000 mg PO DAILY cholecalciferol (vitamin D3) [Vitamin D3] 25 mcg (1,000 unit) Capsule 25 mcg PO DAILY Centrum 0.4-162-18 mg Tablet 1 tab PO DAILY ondansetron 4 mg tablet,disintegrating 4 mg PO Q8H PRN (Reason: nausea and vomiting) Qty: 10 0RF hydrocodone-acetaminophen [hydrocodone-acetaminophen] 5-325 mg tablet 1 tab PO Q6H PRN PRN (Reason: Pain) 3 Days Qty: 12 0RF sulfamethoxazole-trimethoprim [sulfamethoxazole-trimethoprim] 800-160 mg tablet 1 tab PO BID Qty: 20 0RF Proctofoam HC 1-1 % foam 1 applic MI TID PRN (Reason: hemorrhoids) Qty: 10 0RF Primary Care Provider: An Law Referrals: Pritesh Carvajal MD [Med Staff - Data Virtualization Consultant] - 3-5 Days Disposition Disposition: Home, Self Care
--- NOTE | 2022-11-29 18:27 | CT_ITS ---
STUDY: CT BRAIN WITHOUT CONTRAST REASON FOR EXAM: Female, 77 years old. lightheaded RADIATION DOSAGE (If Supplied By Facility): CTDIvol = ( 44.99 ) mGy, DLP = ( 796.11 ) mGycm TECHNIQUE: Transaxial CT imaging of the brain was performed without administration of intravenous contrast material. Individualized dose optimization techniques were used for this CT. COMPARISON: March 14, 2020 FINDINGS: Normal soft tissue structures. Normal calvarium. Calcific plaquing of the cavernous carotids. Atrophy and moderate periventricular white matter ischemic changes.. Normal basal ganglia and thalami. Normal brainstem. Normal cerebellum. There is no intracranial hemorrhage. There are no findings of an acute ischemic infarction. Normal visualized paranasal sinuses. CT/Brain/Head without Contrast IMPRESSION: Atrophy and moderate periventricular white matter ischemic changes. No acute bleed. If concern for acute infarct MRI recommended.. Electronically Signed: Zheng Vail MD at 19:23 EDT ,
--- NOTE | 2022-11-29 18:27 | EKG12_ITS ---
Test Reason : SYNCOPE Blood Pressure : / mmHG Vent. Rate : 079 BPM Atrial Rate : 079 BPM P-R Int : 164 ms QRS Dur : 076 ms QT Int : 372 ms P-R-T Axes : 047 005 027 degrees QTc Int : 426 ms Normal sinus rhythm with sinus arrhythmia Normal ECG Confirmed by EVITA BALDWIN, CHAGO ([id number]), editor magazine KENZIE BENTON ([id number]) on 11/30/2022 9:09:04 AM Referred By: Confirmed By:CHAGO JAMA MD
[2022-11-29 18:58] LABS: Absolute Neutrophil Count 9.8 X10^3/uL (2.0-7.7); Basophil# 0.21 X10^3/uL; Basophil% 1.6 % (0-1); Eosinophil# 0.39 X10^3/uL; Eosinophils% 2.9 % (0-5); Hematocrit 49.8 % (37-47); Hemoglobin 15.8 g/dL (12.0-15.0); Mean Corp Hgb Conc 31.7 g/dL (32-36); Mean Corpuscular Hgb 29.9 pg (27.0-32.0); Mean Corpuscular Volume 94.1 fL (81-99); Mean Platelet Vol. 9.4 fl (6.2-12.0); Monocyte# 1.11 X10^3/uL; Monocyte% 8.3 % (0-10); NRBC Flagged by Analyzer 0 % (0-5); Neutrophil # 9.82 X10^3/uL (2.7-7.7); Neutrophil % 73.5 % (47-70); POSITIVE COUNT YES; RBC Distribution Width CV 13.6 % (11.6-14.6); RBC Distribution Width SD 47.6 fl (35.1-43.9); Red Blood Count 5.29 M/mm3 (4.2-5.4); White Blood Count 13.4 K/mm3 (4.4-11.0)
--- NOTE | 2022-11-29 19:06 | RAD_ITS ---
STUDY: X-RAY CHEST REASON FOR EXAM: Female, 77 years old. pneumonia TECHNIQUE: AP portable COMPARISON: None. FINDINGS: The lungs are clear and expanded. There is no demonstrated pleural abnormality. Normal size heart. Normal mediastinum and dario. Normal visualized pulmonary arteries. Mildly calcified aortic arch and descending thoracic aorta. Dorsal spine demonstrates degenerative change. Normal visualized ribs, clavicles, and left shoulder. Degenerative changes of the right shoulder with old Hill-Sachs deformity of the greater tuberosity. There is no demonstrated abnormality of the visualized soft tissue structures of the upper abdomen. Large intrathoracic hiatal hernia with air-fluid level RAD/Chest 1 View (Portable) IMPRESSION: Large intrathoracic hiatal hernia. No acute cardiopulmonary pathology. Electronically Signed: Zheng Vail MD at 19:20 EDT ,
[2022-11-29 19:14] LABS: Anion Gap 7 (5-15); BUN 14 mg/dL (7-18); BUN/Creat Ratio 16.1 RATIO (10-20); Calcium,Total 10.1 mg/dL (8.5-10.1); Chloride 103 mmol/L (98-107); Creatinine, Serum 0.87 mg/dL (0.55-1.02); EST Glomerular Filtration Rate 67 mL/min (>60); Est Glom Filt Rate - Afr Amer 81 mL/min (>60); Estimated Creatinine Clearance 42.15 ml/min; Glucose 109 mg/dL (74-106); Potassium 4.2 mmol/L (3.5-5.1); Sodium Level 137 mmol/L (136-145)
[2022-11-29 19:20] LABS: Differential Indicated SCAN CRITERIA MET; Platelet Count 770 K/mm3 (150-450)
[2022-11-29 19:41] LABS: Anisocytosis RARE; Macrocytosis RARE; Platelet Estimate MKD INC (ADEQ); Red Cell Morphology N CHROM NORMAL (NORM C&C)
[2022-11-29 19:48] LABS: Bacteria 0 SEEN /hpf (None Seen); Mucous, Urine 0 SEEN /hpf (<or=2+); Red Blood Cells-Urine 0 SEEN /hpf (0-5)
[2022-11-29 19:50] LABS: Color, Urine Yellow (Yellow); Glucose, Dipstick Normal (Normal); Ketone-Dipstick Negative (Negative); Leukocyte Esterase-Dipstick 500 /ul (Negative); Nitrite-Dipstick Negative (Negative); Occult Blood-Urine Negative /ul (Negative); Protein-Dipstick Negative (Negative); Urine Bilirubin Dipstick Negative (Negative); Urine Clarity Clear (Clear); Urine Urobilinogen Normal (Normal); Urine pH 6.5 (5.0 - 8.0)
[2022-11-29 19:57] VITALS: BP 150/85; PULSE 90; RESP 17; O2SAT 97
[2022-11-29 20:02] LABS: Squamous Epithelial Cells - UA 0-5 SEEN /hpf (5-10); White Blood Cells 0-5 SEEN /hpf (0-5)
[2022-11-29 21:56] VITALS: BP 146/74; PULSE 76; RESP 16; O2SAT 98
[2022-11-30 12:27] LABS: Pathologist Review Reviewed
== END 2022-11-29 21:57 | disposition home or self-care (01) ==
PROVIDERS: Emergency Provider Emergency Medicine; PCP Obstetrics & Gynecology; Visit Provider Emergency Medicine
DX: R42 Dizziness and giddiness (principal); K44.9 Diaphragmatic hernia without obstruction or gangrene
CPT/HCPCS: 70450; 71045; 80048; 81001; 85025; 93005; 96360; 99285; J7040; A4216

== ENCOUNTER 2024-07-29 18:09 | Inpatient (IN) | payer MEDICARE, SELFPAY ==
[2024-07-29] VITALS (9 sets, daily range): BP systolic 89–129; BP diastolic 57–112; PULSE 82–100; RESP 14–18; TEMP 35.9–36.7; O2SAT 94–98; BMI 24.7; BMI 22.9
[2024-07-29 18:52] LABS: Hematocrit 36.9 % (37-47); Hemoglobin 11.4 g/dL (12.0-15.0); Mean Corp Hgb Conc 30.9 g/dL (32-36); Mean Corpuscular Hgb 27.3 pg (27.0-32.0); Mean Corpuscular Volume 88.5 fL (81-99); Mean Platelet Vol. 10.4 fl (6.2-12.0); POSITIVE COUNT YES; POSITIVE DIFFERENTIAL YES; POSITIVE MORPHOLOGY YES; RBC Distribution Width CV 18.6 % (11.6-14.6); RBC Distribution Width SD 59.1 fl (35.1-43.9); Red Blood Count 4.17 M/mm3 (4.2-5.4)
[2024-07-29] MEDS: 0.9% Normal Saline (1000mL) 1,000 ML 999 ML IV (18:54)
[2024-07-29 19:02] LABS: Differential Indicated MANUAL DIFF; Platelet Count 1675 K/mm3 (150-450)
[2024-07-29 19:07] LABS: AST(SGOT) 23 U/L (15-37); Alanine Aminotransfer ALT/SGPT 19 U/L (13-56); Albumin, Serum 3.4 g/dL (3.2-5.0); Alkaline Phosphatase 69 U/L (45-117); Anion Gap 12 (5-15); BUN 18 mg/dL (7-18); BUN/Creat Ratio 15.8 RATIO (10-20); Calcium,Total 9.8 mg/dL (8.5-10.1); Chloride 106 mmol/L (98-107); Creatinine, Serum 1.14 mg/dL (0.55-1.02); EST Glomerular Filtration Rate 49 mL/min (>60); Est Glom Filt Rate - Afr Amer 59 mL/min (>60); Estimated Creatinine Clearance 32.58 ml/min; Globulin 3.3 g/dL (2.2-4.2); Glucose 243 mg/dL (74-106); Lipase 22 U/L (13-75); Potassium 3.7 mmol/L (3.5-5.1); Protein, Total 6.7 g/dL (6.4-8.2); Sodium Level 139 mmol/L (136-145)
--- NOTE | 2024-07-29 19:15 | EDS_ITS ---
HPI History of Present Illness Chief Complaint: GI Bleed Narrative Narrative: Patient is a 79-year-old female who presents to the emergency department chief complaint of passing large clots while having bowel movements. Patient states that her stool has been dark off and on however notes that she is on iron supplementation. Patient denies any blood thinner medications. States that all of this started shortly before her arrival here. States that she is having chills and shaking and does not feel well therefore she came here for the valuation management. [facility] Medical History (Updated 07/29/24 @ 22:[address] Jose Barrera DO) Iron deficiency COVID-19 CKD (chronic kidney disease), stage II Home Medications ?Medication ?Instructions ?Recorded ?Last Taken ?Type ascorbic acid (vitamin C) 1,000 mg 1,000 mg PO DAILY 06/06/21 Unknown History tablet,extended release (Vitamin C ER) cholecalciferol (vitamin D3) 25 25 mcg PO DAILY 06/06/21 Unknown History mcg (1,000 unit) capsule (Vitamin D3) [id number] 0.4 mg-calcium 162 1 tab PO DAILY 06/06/21 Unknown History mg-iron 18 [id number]-[id number] tablet Allergy/AdvReac Type Severity Reaction Status Date / Time venom-honey bee (bee venom Allergy Unknown Verified 07/29/24 18:10 (honey bee)) Social History Smoking Status: Never smoker substance use type: does not use ROS ROS ED ROS Narrative Constitutional: Complains of chills denies fevers, lightness, dizziness, he adaches Eyes: Denies change in vision double vision blurry vision Cardiovascular: Denies chest pain or palpitations Respiratory: Denies coughing wheezing shortness of breath Abdomen: Complains of passing dark red clots denies abdominal pain nausea vomiting : Denies any urinary symptoms Neurological: Denies numbness, weakness, tingling Musculoskeletal: Denies back pain Skin: Denies any rashes or lesions EXAM Physical Exam Narrative Exam Narrative: General: Patient lying in bed rest comfortably did not appear to be in acute distress Head: Atraumatic, normocephalic Eyes: PERRL bilaterally, EOMI bilaterally, no conjunctival injection noted Neck: Soft, supple, trachea midline Cardiovascular: Regular rate and rhythm Respiratory: Clear to auscultation bilaterally Abdomen: Soft, nondistended, no tenderness palpation Rectal: Patient has dark red blood noted on rectal exam Extremities: +4/5 strength noted in the bilateral upper and lower extremities, radial pulses +2/4 in the bilateral per extremities Neurological: Patient following commands knew that she was at [facility] year is 2024 Skin: Warm, dry, intact, patient does. Pale Const Vital Signs: 07/29/24 18:09 07/29/24 18:11 07/29/24 19:09 Temperature 96.7 F L Temperature Source Temporal Pulse Rate 82 Respiratory Rate 14 18 Blood Pressure 89/57 L 89/65 L 96/82 H Blood Pressure Mean 67 73 86 Pulse Ox 96 98 Oxygen Delivery Method Room Air 07/29/24 20:00 07/29/24 21:00 Temperature Temperature Source Pulse Rate 95 91 Respiratory Rate 17 14 Blood Pressure 126/83 H 129/112 H Blood Pressure Mean 97 117 Pulse Ox 95 94 Oxygen Delivery Method Room Air Room Air MDM MDM MDM Narrative Medical decision making narrative: Patient is a 79-year-old female who presents to the emergency department with a chief complaint of passing clots when having a bowel movement. On the differential diagnose includes but limited to diverticulosis, diverticular bleed, lower GI bleed. Once workup is obtained reviewed she will be reevalua adriane. Patient be typed and screened. Once again the patient is not any blood thinner medications. Patient CBC was significant leukocytosis of 42,000 which is significantly elevated from a previous blood draw on 11/29/2022. Patient's hemoglobin was 11.4, platelet count was noted to be 1675. Patient's absolute neutrophil count was 33.6, INR normal 1.1, PT of 14.8. Patient sodium was 139, potassium was 3.7, creatinine was noted be elevated 1.14. Patient's AST and ALT are 23 and 19 respectively. Patient's lipase was 22. Patient urinalysis reviewed showed no evidence of infection. Patient CTA abdomen pelvis showed no acute abnormalities in the abdomen or pelvis. Large hiatal hernia. Diverticulosis. Multiple chronic compression deformities of the visualized thoracolumbar spine. Patie nt's fecal was negative despite having dark maroon blood on my finger on rectal exam. Discussed case with hospitalist Dr. Garrido and we will repeat her hemoglobin. This was repeated and it dropped from 11.4-9. After IV fluids her blood pressure did improved to a systolic of 129. Did discuss case with Dr. Friend as well who is aware the patient. Had read discussion with hospitalist Dr. Martinez who accept patient for admission. Patient notified is agreed this plan all question concerns answered. Lab Data Labs: Laboratory Results - last 24 hr 07/29/24 07/29/24 07/29/24 18:22 19:12 19:17 WBC 42.0 H* RBC 4.17 L Hgb 11.4 L Hct 36.9 L MCV 88.5 MCH 27.3 MCHC 30.9 L RDW Std Deviation 59.1 H RDW Coeff of Venkata 18.6 H Plt Count 1675 H* MPV 10.4 Neut % (Auto) Not Reportable Absolute Neuts (auto) 33.6 H Absolute Lymphs (auto) 2.94 Total Counted 100 Neutrophils % (Manual) 61 Band Neutrophils % 19 H Lymphocytes % (Manual) 7 L Monocytes % (Manual) 2 Eosinophils % (Manual) 2 Metamyelocytes % 1 Myelocytes % 8 H Nucleated RBCs/100 WBC 1 Differential Comment SEE COMMENTS Diff Path Review May foll Platelet Estimate MKD INC RBC Morphology N CHROM Anisocytosis RARE Macrocytosis RARE Ovalocytes RARE PT 14.8 INR 1.1 APTT 29.7 Sodium 139 Potassium 3.7 Chloride 106 Carbon Dioxide 21.0 Anion Gap 12 BUN 18 Creatinine 1.14 H Estim Creat Clear Calc 32.58 Est GFR (MDRD) Af Amer 59 L Est GFR (MDRD) Non-Af 49 L BUN/Creatinine Ratio 15.8 Glucose 243 H Calcium 9.8 Total Bilirubin 0.50 AST 23 ALT 19 Alkaline Phosphatase 69 Total Protein 6.7 Albumin 3.4 Globulin 3.3 Albumin/Globulin Ratio 1.0 Lipase 22 Urine Color Urine Clarity Urine pH Ur Specific [place] Urine Protein Urine Glucose (UA) Urine Ketones Urine Occult Blood Urine Nitrite Urine Bilirubin Urine Urobilinogen Ur Leukocyte Esterase Urine RBC Urine WBC Ur Squamous Epith Cells Ur Renal Epithelial Cell Urine Bacteria Urine Mucus Blood Type A NEGATIVE Antibody Screen NEGATIVE 07/29/24 07/29/24 20:40 21:00 WBC RBC Hgb 9.0 L Hct 28.3 L MCV MCH MCHC RDW Std Deviation RDW Coeff of Venkata Plt Count MPV Neut % (Auto) Absolute Neuts (auto) Absolute Lymphs (auto) Total Counted Neutrophils % (Manual) Band Neutrophils % Lymphocytes % (Manual) Monocytes % (Manual) Eosinophils % (Manual) Metamyelocytes % Myelocytes % Nucleated RBCs/100 WBC Differential Comment Diff Path Review Platelet Estimate RBC Morphology Anisocytosis Macrocytosis Ovalocytes PT INR APTT Sodium Potassium Chloride Carbon Dioxide Anion Gap BUN Creatinine Estim Creat Clear Calc Est GFR (MDRD) Af Amer Est GFR (MDRD) Non-Af BUN/Creatinine Ratio Glucose Calcium Total Bilirubin AST ALT Alkaline Phosphatase Total Protein Albumin Globulin Albumin/Globulin Ratio Lipase Urine Color Yellow Urine Clarity Clear Urine pH 5.0 Ur Specific [place] 1.020 Urine Protein 30 H Urine Glucose (UA) Normal Urine Ketones 15 H Urine Occult Blood Negative Urine Nitrite Negative Urine Bilirubin Negative Urine Urobilinogen Normal Ur Leukocyte Esterase Negative Urine RBC 0 SEEN Urine WBC 0-5 SEEN Ur Squamous Epith Cells 0 SEEN Ur Renal Epithelial Cell 0-5 SEEN Urine Bacteria 0 SEEN Urine Mucus 1+ Blood Type Antibody Screen Radiography Diagnostic Testing: Clinical Impression(s) from Imaging Studies Abdomen/Pelvis CTA 07/29/24 19:24 IMPRESSION: No acute abnormalities in the abdomen or pelvis. Large hiatal hernia. Diverticulosis. Multiple chronic compression deformities of the visualized thoracolumbar spine. Electronically Signed: Jass Reynoso MD at 20:09 EST , Discharge Plan Triage Chief Complaint: GI Bleed ED Provider: Jose Barrera Dx/Rx/DC Orders Clinical Impression: Acute GI bleeding, Primary thrombocytosis Primary Care Provider: An Law Disposition Disposition: Acute Care Hospital [facility]
--- NOTE | 2024-07-29 19:24 | CT_ITS ---
INDICATION: gi bleed EXAMINATION: CTA Abdomen and Pelvis WO/W Contrast Injection TECHNIQUE: Helically acquired images were obtained of the abdomen and pelvis after IV contrast. A radiation dose optimization technique was used for this scan. IV Contrast dosage and agent: IV 100mL Isovue-370 Oral contrast: None. COMPARISON: None. FINDINGS: Visualized lung bases: Unremarkable Liver: Unremarkable Gallbladder: Unremarkable Spleen: Unremarkable Pancreas: Unremarkable Adrenal Glands: Unremarkable Kidneys: 2.5 cm simple cyst in the left upper renal pole. Vasculature: Moderate aortoiliac atherosclerotic disease. GI Tract: Large hiatal hernia. Scattered colonic diverticula. Lymphadenopathy: None Peritoneum: No ascites. Bladder: Unremarkable Reproductive organs: Multi fibroid uterus. Pessary device in place. Bones/Soft tissues: There are diffuse degenerative changes of the spine. Multiple chronic compression deformities of the visualized thoracolumbar spine. CT/CTA Abd/Pelvis W/WO Contrast IMPRESSION: No acute abnormalities in the abdomen or pelvis. Large hiatal hernia. Diverticulosis. Multiple chronic compression deformities of the visualized thoracolumbar spine. Electronically Signed: Jass Reynoso MD at 20:09 EST ,
[2024-07-29 19:27] LABS: Eosinophil 2 % (0-5); Lymphocyte 7 % (19-41); Metamyelocyte 1 % (0-1); Monocyte 2 % (0-10); Myelocyte 8 % (0-0); Neutrophil-Band 19 % (0-5); Neutrophil-Segmented 61 % (47-70); Nucleated Red Bld Cells,Manual 1 % (0-5); Total Cells Counted 100 (MANUAL DIFF)
[2024-07-29 19:30] LABS: Absolute Lymphocyte Count 2.94 X10^3/uL (0.83-4.51); Absolute Neutrophil Count 33.6 X10^3/uL (2.0-7.7)
[2024-07-29 19:31] LABS: Anisocytosis RARE; Differential Comment SEE COMMENTS; Macrocytosis RARE; Ovalocyte RARE; Platelet Estimate MKD INC (ADEQ); Red Cell Morphology N CHROM NORMAL (NORM C&C)
[2024-07-29 19:54] LABS: International Normalized Ratio 1.1; Partial Thromboplast Time 29.7 Seconds (24.1-36.2); Prothrombin Time (Protime)PT. 14.8 SECONDS (11.7-14.9)
[2024-07-29 20:52] LABS: Hematocrit 28.3 % (37-47)
--- NOTE | 2024-07-29 21:00 | ED.RN ---
Patient states her vaginal pessary has remained in her vagina for a year without removal or cleaning/
[2024-07-29 21:09] LABS: Bacteria 0 SEEN /hpf (None Seen); Red Blood Cells-Urine 0 SEEN /hpf (0-5); Squamous Epithelial Cells - UA 0 SEEN /hpf (5-10)
[2024-07-29 21:10] LABS: Color, Urine Yellow (Yellow); Glucose, Dipstick Normal (Normal); Ketone-Dipstick 15 mg/dl (Negative); Leukocyte Esterase-Dipstick Negative /ul (Negative); Nitrite-Dipstick Negative (Negative); Occult Blood-Urine Negative /ul (Negative); Protein-Dipstick 30 mg/dl (Negative); Urine Bilirubin Dipstick Negative (Negative); Urine Clarity Clear (Clear); Urine Urobilinogen Normal (Normal)
[2024-07-29] MEDS: Ondansetron 4 MG/2 ML Vial IV (21:12)
[2024-07-29 21:22] LABS: Mucous, Urine 1+ /hpf (<or=2+); Renal Epithelial Cells 0-5 SEEN /hpf (0-5); White Blood Cells 0-5 SEEN /hpf (0-5)
--- NOTE | 2024-07-29 21:37 | HP.PCM.HOS_ITS ---
HPI - General General Date of Admission: 07/29/24 Date of Service: 07/29/24 Chief Complaint: Bloody clots intermittently per rectum. HPI Narrative The patient is an 79 y/o F w/ PMHx: Former tobacco use, Chronic Fe Deficiency, CKD stage II per previous GFR trending up with no other marked medical history chronically who presents to the [facility] ED on 07/29/24 with history of persistent intermittent large blood clots being passed while she is having bowel movements with stools intermittently dark on iron supplementation not on any antiplatelet therapies or anticoagulant therapies all starting just previous to ED arrival on day of presentation reporting chills and shaking with fatigue malaise of unclear etiology as well prompting eventual ED evaluation to be cautious. She does report recent increased fatigue, malaise, dyspnea worse with activity, lightheadedness and dizziness with primarily exertion attempts. Workup in the ED included T96.7, heart rate 82, BP initially 89/57, respiratory rate 14, 96% on room air with most recent repeat vitals heart rate 95, BP 126/83, respiratory rate 17, 95% on room air, CBC with WBC 42, hemoglobin 11.4-->repeat in the ED 9.0, MCV 88.5, platelet 1675 with significant left shift, unremarkable coags, CMP with BUN/Cr 18/1.14, GFR 49, glucose 243, hepatic profile unremarkable, stool guaiac negative despite ED physician reporting evidence of dark red blood in the patient's stool, CTA abdomen and pelvis with no acute intra-abdominal findings with a large hiatal hernia, evidence of diverticulosis, multiple chronic compression deformities of the visualized thoracolumbar spine, type and screen initiated per ED physician, urinalysis with spec gravity 1.020 otherwise no obvious evidence of any UTI. In the ED patient ministered 1 L normal saline as well as Zofran 4 mg IV x 1. ED discussed case with Dr. Paul GI. COUNTS INCLUDE 234 BEDS AT THE [facility] Medical History Former tobacco use Iron deficiency COVID-19 CKD (chronic kidney disease), stage II Home Medications ?Medication ?Instructions ?Recorded ?Last Taken ?Type ascorbic acid (vitamin C) 1,000 mg 1,000 mg PO DAILY 06/06/21 Unknown History tablet,extended release (Vitamin C ER) cholecalciferol (vitamin D3) 25 25 mcg PO DAILY 06/06/21 Unknown History mcg (1,000 unit) capsule (Vitamin D3) poyjgyri-[id number]-WI 0.4 mg-calcium 162 1 tab PO DAILY 06/06/21 Unknown History mg-iron 18 xa-jtfjqpy-zbahne tablet Allergy/AdvReac Type Severity Reaction Status Date / Time venom-honey bee (bee venom Allergy Unknown Verified 07/29/24 18:10 (honey bee)) Family History (Updated 07/29/24 @ 22:[address] Jaylyn Garrido MD) Mother Cancer Father No problems noted. Surgical History Status post left breast lumpectomy Social History (Updated 07/29/24 @ 22:[address] Jaylyn Garrido MD) household members: none Smoking Status: Former smoker how long ago did patient quit smoking: Quit ~ 20 years prior, smoked 1-3 cig/day since teen off and on. alcohol intake: never substance use type: does not use ROS ROS Narrative Admission Review of Systems: CONSTITUTIONAL: No weight loss, fever, chills, + weakness or fatigue. HEENT: + Lightheadedness, dizziness. Eyes: No visual loss, blurred vision, double vision or yellow sclerae. Ears, Nose, Throat: No hearing loss, sneezing, congestion, runny nose or sore throat. SKIN: No rash or itching, lesions, wounds. CARDIOVASCULAR: + Lightheadedness, dizziness. No chest pain, chest pressure or chest discomfort, palpitations, edema, orthopnea. RESPIRATORY: No shortness of breath, cough or sputum, wheezing, hemoptysis. GASTROINTESTINAL: + Dark red stool, bright red blood clot/clots per rectum. No anorexia, nausea, vomiting, agustin diarrhea, abdominal pain, melena. GENITOURINARY: No dysuria, frequency, urgency or retention. NEUROLOGICAL: + Lightheadedness, dizziness. No headache, paralysis, ataxia, numbness or tingling in the extremities, focal weakness, change in bowel or bladder control, seizure. MUSCULOSKELETAL: + muscle, back pain, joint pain or stiffness. HEMATOLOGIC: + Acute on chronic anemia, active bleeding is noted. LYMPHATICS: No enlarged nodes. No history of splenectomy. PSYCHIATRIC: No history of depression or anxiety. ENDOCRINOLOGIC: + reports of sweating, cold or heat intolerance. No polyuria or polydipsia. ALLERGIES: + History of bee venom allergy. Vital Signs Vital Signs Vital Signs: 07/29/24 18:09 07/29/24 18:11 07/29/24 19:09 Temperature 96.7 F L Temperature Source Temporal Pulse Rate 82 Respiratory Rate 14 18 Blood Pressure 89/57 L 89/65 L 96/82 H Blood Pressure Mean 67 73 86 Pulse Ox 96 98 Oxygen Delivery Method Room Air 07/29/24 20:00 07/29/24 21:00 Temperature Temperature Source Pulse Rate 95 91 Respiratory Rate 17 14 Blood Pressure 126/83 H 129/112 H Blood Pressure Mean 97 117 Pulse Ox 95 94 Oxygen Delivery Method Room Air Room Air Weight Weight: 130 lb 15.273 oz Body Mass Index (BMI) 24.7 Physical Exam Narrative Physical Examination: General: Awake, alert, oriented x 3 and cooperative, seated upright in the ED bed in no apparent distress, denies any current lightheadedness, dizziness or shortness of breath that is at rest. Skin: Pale color, normal turgor, no icterus, no cyanosis, occasional stage ecchymoses, abrasion. HEENT: AT/NC, EOMI, PERRLA, mildly dry MM, no carotid bruits or JVD noted. Lungs: Mildly diminished, greater bases, appropriate effort, no rales, ronchi or wheezing. Heart: Currently mildly tachycardic with regular rhythm; no gallop, rub audible. Abdomen: Soft, NTTP, ND, hyperactive BS, no appreciated HSM. Extremities: No cyanosis, no clubbing, no marked peripheral edema. Neurological: Patient awake, alert, oriented as noted, cognitive function intact; pupils equally reactive to light and accommodation, cranial nerves grossly normal, moving all 4 extremities, no focal deficits, strength moderately to severely globally decreased. Psychiatric: Affect appears fatigued otherwise normal, no acute evidence of depressive or anxiety feelings. Results Lab / Micro Data 07/29/24 20:40 07/29/24 18:22 Labs: Laboratory Results - last 24 hr 07/29/24 18:22: WBC 42.0 H*, RBC 4.17 L, Hgb 11.4 L, Hct 36.9 L, MCV 88.5, MCH 27.3, MCHC 30.9 L, RDW Std Deviation 59.1 H, RDW Coeff of Venkata 18.6 H, Plt Count 1675 H*, MPV 10.4, Neut % (Auto) Not Reportable, Absolute Neuts (auto) 33.6 H, Absolute Lymphs (auto) 2.94, Total Counted 100, Neutrophils % (Manual) 61, Band Neutrophils % 19 H, Lymphocytes % (Manual) 7 L, Monocytes % (Manual) 2, Eosinophils % (Manual) 2, Metamyelocytes % 1, Myelocytes % 8 H, Nucleated RBCs/100 WBC 1, Differential Comment SEE COMMENTS, Diff Path Review May foll, Platelet Estimate MKD INC, RBC Morphology N CHROM, Anisocytosis RARE, Macrocytosis RARE, Ovalocytes RARE, Sodium 139, Potassium 3.7, Chloride 106, Carbon Dioxide 21.0, Anion Gap 12, BUN 18, Creatinine 1.14 H, Estim Creat Clear Calc 32.58, Est GFR (MDRD) Af Amer 59 L, Est GFR (MDRD) Non-Af 49 L, BUN/Creatinine Ratio 15.8, Glucose 243 H, Calcium 9.8, Total Bilirubin 0.50, AST 23, ALT 19, Alkaline Phosphatase 69, Total Protein 6.7, Albumin 3.4, Globulin 3.3, Albumin/Globulin Ratio 1.0, Lipase 22 07/29/24 19:12: Blood Type A NEGATIVE, Antibody Screen NEGATIVE 07/29/24 19:17: PT 14.8, INR 1.1, APTT 29.7 07/29/24 20:40: Hgb 9.0 L, Hct 28.3 L 07/29/24 21:00: Urine Color Yellow, Urine Clarity Clear, Urine pH 5.0, Ur Specific [place] 1.020, Urine Protein 30 H, Urine Glucose (UA) Normal, Urine Ketones 15 H, Urine Occult Blood Negative, Urine Nitrite Negative, Urine Bilirubin Negative, Urine Urobilinogen Normal, Ur Leukocyte Esterase Negative, Urine RBC 0 SEEN, Urine WBC 0-5 SEEN, Ur Squamous Epith Cells 0 SEEN, Ur Renal Epithelial Cell 0-5 SEEN, Urine Bacteria 0 SEEN, Urine Mucus 1+ Micro: Microbiology 07/29/24 18:56 Stool Stool Occult Blood (KAJAL) - Final Imaging Radiology Impression Abdomen/Pelvis CTA 07/29/24 19:24 IMPRESSION: No acute abnormalities in the abdomen or pelvis. Large hiatal hernia. Diverticulosis. Multiple chronic compression deformities of the visualized thoracolumbar spine. Electronically Signed: Jass Reynoso MD at 20:09 EST , Assessment & Plan Assessment/Plan (1) Acute GI bleeding: PLAN: Plan The patient is an 79 y/o F w/ PMHx: Former tobacco use, Chronic Fe Deficiency, CKD stage II per previous GFR trending up with no other marked medical history chronically who presents to the [facility] ED on 07/29/24 with history of persistent intermittent large blood clots being passed while she is having bowel movements with stools intermittently dark on iron supplementation not on any antiplatelet therapies or anticoagulant therapies all starting just previous to ED arrival on day of presentation reporting chills and shaking with fatigue malaise of unclear etiology as well prompting eventual ED evaluation to be cautious. #1. Acute GI Bleed w/ resultant Acute Blood Loss Anemia with underlying chronic iron deficiency reported per patient: Given current presentation with lab changes some concern for possibly underlying malignancy with ED physician reporting obvious blood upon evaluation clinically although guaiac is negative in the ED but Hgb dropped in the ED 11.4->9.0, will admit to medical surgical floor on telemetry given stable vital signs, will continue to obtain serial H&H assessments, although lower will temporarily allow clears until midnight with n.p.o. status following and maintain on IV PPI, will request initiation of prep, ferritin/iron panel requested, GI consulted with evaluation pending. #2. Acute Thrombocytosis, Leukocytosis, Unclear etiology: Admission CBC with WC 42, platelet count 1675 with previous to this 11/25/2022 CBC with WBC 13.4 and platelet count 770 with primarily normal levels previous to that time but unfortunately no marked trending available, given unclear etiology will continue to trend CBC, requested blood smear directly with lab, obtain iron panel/ferritin, certainly need to rule out any infectious etiology/inflammatory etiology, procalcitonin requested, ESR and CRP requested. Pending repeat levels and work-up may need to request Hematology consultation. #3. Acutely elevated creatinine/acute renal insufficiency on CKD stage II per previous GFR trend: Admission BUN/creatinine 18/1.14, GFR 49, previously GFR primarily 60-70 range, primary creatinine baseline 0.8, will hydrate, monitor H&H with PRBC transfusion if appropriate, continue to trend CMP and if not improving low threshold to further evaluate. #4. Acute hyperglycemia with no diabetic history: Admission glucose 243, no previous diabetic history, hemoglobin A1c requested, will maintain on Accu-Cheks with insulin sliding scale to be cautious every 6 hours given planned evaluation as noted #1 pending HgbA1c. #5. Former tobacco use: Encourage continued tobacco cessation. #6. DVT prophylaxis: SCDs. #7. CODE status: Patient MERON is her granddaughter and living will is she believes in place. Discussed CODE status at length including difference between FULL code, DNR-CCA and DNR-CC status. Following discussions about the differences in these status, requested Full Code status; however, she was initially unsure and discussed this at length with the daughter who is present but for now we will proceed with this CODE STATUS and plan to discuss these items with her granddaughter. Advanced Care Planning Face to Face Time: 16 minutes. Charges/Coding Visit Charges Inpatient E&M: 26630 Init Hosp L3 Procedures Hospitalists Procedures: 06115 Advncd Care Plan 30 Min
--- NOTE | 2024-07-29 22:49 | EX.PCM.CON.G ---
HPI Consult Data Date of Consult: 07/29/24 HPI Narrative Reason for Consultation: GI bleeding HPI Narrative: KRISTIE RODGERS, is a 79 F who presents with multiple episodes of lower GI bleeding. She complains of persistent intermittent large blood clots being passed while she is having bowel movements with stools intermittently dark on iron supplementation not on any antiplatelet therapies or anticoagulant therapies all starting just previous to ED arrival. She also complained of chills and shaking with fatigue malaise of unclear etiology as well prompting eventual ED evaluation to be cautious. She does report recent increased fatigue, malaise, dyspnea worse with activity, lightheadedness and dizziness with primarily exertion attempts. Workup in the ED included T96.7, heart rate 82, BP initially 89/57, respiratory rate 14, 96% on room air with most recent repeat vitals heart rate 95, BP 126/83, respiratory rate 17, 95% on room air, CBC with WBC 42, hemoglobin 11.4-->repeat in the ED 9.0, MCV 88.5, platelet 1675 with significant left shift, unremarkable coags, CMP with BUN/Cr 18/1.14, GFR 49, glucose 243, hepatic profile unremarkable, stool guaiac negative despite ED physician reporting evidence of dark red blood in the patient's stool, CTA abdomen and pelvis with no acute intra-abdominal findings with a large hiatal hernia, evidence of diverticulosis, multiple chronic compression deformities of the visualized thoracolumbar spine, [facility] Medical History Former tobacco use Iron deficiency COVID-19 CKD (chronic kidney disease), stage II Home Medications ?Medication ?Instructions ?Recorded ?Last Taken ?Type ascorbic acid (vitamin C) 1,000 mg 1,000 mg PO DAILY 06/06/21 Unknown History tablet,extended release (Vitamin C ER) cholecalciferol (vitamin D3) 25 25 mcg PO DAILY 06/06/21 Unknown History mcg (1,000 unit) capsule (Vitamin D3) [id number] 0.4 mg-calcium 162 1 tab PO DAILY 06/06/21 Unknown History mg-iron 18 [id number] tablet Allergy/AdvReac Type Severity Reaction Status Date / Time venom-honey bee (bee venom Allergy Unknown Verified 07/29/24 18:10 (honey bee)) Family History Mother Cancer Father No problems noted. Surgical History Status post left breast lumpectomy Social History household members: none Smoking Status: Former smoker how long ago did patient quit smoking: Quit ~ 20 years prior, smoked 1-3 cig/day since teen off and on. alcohol intake: never substance use type: does not use ROS Constitutional Constitutional: Denies fatigue, fever(s), poor appetite, weight gain or weight loss Gastrointestinal Gastrointestinal: Denies belching, bloating, change in bowel habits, change in stool character, chewing difficulty, coffee ground emesis, constipation, cramping, diarrhea, dyspepsia, dysphagia, early satiety, excessive flatus, fecal incontinence, heartburn, hematemesis, hematochezia, hemorrhoids, loose stools, melena, nausea, odynophagia, rectal bleeding, tenesmus, vomiting or weight changes Physical Exam Const alert, oriented x3 and no apparent distress HEENT normocephalic Eyes conjunctivae normal and no scleral icterus Neck supple Lymph Lymphatic: no lymphadenopathy noted Resp normal respiratory effort Cardio regular rate, regular rhythm, S1 normal heart sound and S2 normal heart sound GI normal to inspection, nondistended, normoactive bowel sounds Extremity no clubbing, cyanosis or edema Skin no rashes or lesions noted Neuro CN's II-XII intact bilaterally, moves all extremities and no focal motor deficits Psych mental status grossly normal Lab / Micro Data 07/30/24 06:17 07/30/24 06:17 Labs: Laboratory Results - last 24 hr 07/29/24 18:22: WBC 42.0 H*, RBC 4.17 L, Hgb 11.4 L, Hct 36.9 L, MCV 88.5, MCH 27.3, MCHC 30.9 L, RDW Std Deviation 59.1 H, RDW Coeff of Venkata 18.6 H, Plt Count 1675 H*, MPV 10.4, Neut % (Auto) Not Reportable, Absolute Neuts (auto) 33.6 H, Absolute Lymphs (auto) 2.94, Total Counted 100, Neutrophils % (Manual) 61, Band Neutrophils % 19 H, Lymphocytes % (Manual) 7 L, Monocytes % (Manual) 2, Eosinophils % (Manual) 2, Metamyelocytes % 1, Myelocytes % 8 H, Nucleated RBCs/100 WBC 1, Differential Comment SEE COMMENTS, Diff Path Review Reviewed, Platelet Estimate MKD INC, RBC Morphology N CHROM, Anisocytosis RARE, Macrocytosis RARE, Ovalocytes RARE, Sodium 139, Potassium 3.7, Chloride 106, Carbon Dioxide 21.0, Anion Gap 12, BUN 18, Creatinine 1.14 H, Estim Creat Clear Calc 32.58, Est GFR (MDRD) Af Amer 59 L, Est GFR (MDRD) Non-Af 49 L, BUN/Creatinine Ratio 15.8, Glucose 243 H, Calcium 9.8, Total Bilirubin 0.50, AST 23, ALT 19, Alkaline Phosphatase 69, Total Protein 6.7, Albumin 3.4, Globulin 3.3, Albumin/Globulin Ratio 1.0, Lipase 22 07/29/24 19:12: Blood Type A NEGATIVE, Antibody Screen NEGATIVE, Crossmatch See Detail 07/29/24 19:17: PT 14.8, INR 1.1, APTT 29.7 07/29/24 20:40: Hgb 9.0 L, Hct 28.3 L 07/29/24 21:00: Urine Color Yellow, Urine Clarity Clear, Urine pH 5.0, Ur Specific [place] 1.020, Urine Protein 30 H, Urine Glucose (UA) Normal, Urine Ketones 15 H, Urine Occult Blood Negative, Urine Nitrite Negative, Urine Bilirubin Negative, Urine Urobilinogen Normal, Ur Leukocyte Esterase Negative, Urine RBC 0 SEEN, Urine WBC 0-5 SEEN, Ur Squamous Epith Cells 0 SEEN, Ur Renal Epithelial Cell 0-5 SEEN, Urine Bacteria 0 SEEN, Urine Mucus 1+ 07/29/24 22:09: Hgb 9.7 L, Hct 30.5 L, ESR 5, Phosphorus 4.2, Magnesium 2.3, Iron 31 L, TIBC 342, Iron Saturation 9.1 L, C-React Prot Ext Range < 2.90, Procalcitonin 0.13 H 07/29/24 22:43: POC Glucose 135 H 07/30/24 03:03: Hgb 7.4 L, Hct 24.0 L 07/30/24 05:30: POC Glucose 115 H 07/30/24 06:17: WBC 29.9 H, RBC 3.11 L, Hgb 8.4 L, Hct 26.8 L, MCV 86.2, MCH 27.0, MCHC 31.3 L, RDW Std Deviation 61.0 H, RDW Coeff of Venkata 20.2 H, Plt Count 1069 H*, MPV 10.4, Immature Gran % (Auto) [employer], Neut % (Auto) [employer], Lymph % (Auto) [employer], [place] % (Auto) [employer], Eos % (Auto) [employer], Baso % (Auto) [employer], Absolute Neuts (auto) 26.3 H, Absolute Lymphs (auto) 1.20, Total Counted 100, Neutrophils % (Manual) 86 H, Band Neutrophils % 2, Lymphocytes % (Manual) 4 L, Monocytes % (Manual) 1, Eosinophils % (Manual) 1, Metamyelocytes % 6 H, Nucleated RBC % 0.3, Diff Path Review Reviewed, Platelet Estimate MKD DEC, Plt Morphology Comment GIANT, Polychromasia 1+, Ovalocytes 1+, PT 16.4 H, INR 1.3, APTT 32.1, Sodium 141, Potassium 4.1, Chloride 112 H, Carbon Dioxide 22.0, Anion Gap 8, BUN 19 H, Creatinine 0.92, Estim Creat Clear Calc 38.57, Est GFR (MDRD) Af Amer 76, Est GFR (MDRD) Non-Af 63, BUN/Creatinine Ratio 20.7 H, Glucose 118 H, Hemoglobin A1c 5.5, Calcium 7.9 L, Ferritin 69, Total Bilirubin 0.60, AST 19, ALT 16, Alkaline Phosphatase 48, Total Protein 5.1 L, Albumin 2.6 L, Globulin 2.5, Albumin/Globulin Ratio 1.0 Micro: Microbiology 07/29/24 18:56 Stool Stool Occult Blood (KAJAL) - Final Imaging Radiology Impression Abdomen/Pelvis CTA 07/29/24 19:24 IMPRESSION: No acute abnormalities in the abdomen or pelvis. Large hiatal hernia. Diverticulosis. Multiple chronic compression deformities of the visualized thoracolumbar spine. Electronically Signed: Jass Reynoso MD at 20:09 EST , Assessment & Plan Assessment/Plan (1) Acute GI bleeding: PLAN: Plan The patient is an 79 y/o F presents to the [facility] ED on 07/29/24 with history of persistent intermittent large blood clots being passed while she is having bowel movements with stools intermittently dark Acute GI Bleed w/ resultant Acute Blood Loss Anemia with underlying chronic iron deficiency reported per patient: Hgb dropped in the ED 11.4->9.0. Will perform an upper endoscopy to evaluate her upper GI tract. If this is negative then she may need a colonoscopy. Acute Thrombocytosis, Leukocytosis, Unclear etiology: Hematology consulted Charges/Coding Visit Charges Inpatient E&M: 56094 Init Hosp L2
[2024-07-29] MEDS: Pantoprazole Sodium 40 MG in 0.9% Normal Saline (100mL MB+) 100 ML 330 MG IV (23:04)
[2024-07-29] MEDS: 0.9% Normal Saline (1000mL) 1,000 ML 100 ML IV (23:04)
[2024-07-29] MEDS: Bisacodyl 5 MG Tablet 20 MG PO (23:04)
[2024-07-29 23:09] LABS: Bedside Glucose 135 mg/dL (74-106)
[2024-07-29 23:21] LABS: Erythrocyte Sedimentation Rate 5 mm/hr (0-30)
[2024-07-29 23:22] LABS: Hematocrit 30.5 % (37-47); Hemoglobin 9.7 g/dL (12.0-15.0)
[2024-07-29] MEDS: Electrolyte Solution/Peg's 4000 ML PO (23:29)
[2024-07-29 23:33] LABS: Phosphorus 4.2 mg/dL (2.5-4.9)
[2024-07-29 23:35] LABS: CRP < 2.90 mg/L (0.0-3.0); Iron 31 ug/dL (50-170); Iron Binding Capacity,Total 342 ug/dL (250-450); Magnesium 2.3 mg/dL (1.6-2.6); PERCENT IRON SATURATION 9.1 % (15.0-55.0)
[2024-07-29 23:41] LABS: Procalcitonin 0.13 ng/mL (0.00-0.09)
[2024-07-30] VITALS (16 sets, daily range): BP systolic 71–126; BP diastolic 45–68; PULSE 76–92; RESP 14–20; TEMP 36.6–37.9; O2SAT 94–99; BMI 22.9
--- NOTE | 2024-07-30 02:10 | PCM.HOSP.N ---
Hospitalist Note Patient with significantly bloody bowel movements. Follow-up blood pressure 71/47. Will order 1 unit PRBC to be given now and will administer 1 L normal saline bolus. Patient remains currently in PCU on telemetry. If blood pressure does not improve with blood and IV fluid bolus low threshold to transition to the ICU.
[2024-07-30] MEDS: 0.9% Normal Saline (1000mL) 1,000 ML 999 ML IV (02:15)
[2024-07-30 03:13] LABS: Hemoglobin 7.4 g/dL (12.0-15.0)
--- NOTE | 2024-07-30 05:55 | EKG12_ITS ---
Test Reason : AM EKG Blood Pressure : */* mmHG Vent. Rate : 85 BPM Atrial Rate : 85 BPM P-R Int : 160 ms QRS Dur : 76 ms QT Int : 414 ms P-R-T Axes : 44 9 34 degrees QTcB Int : 492 ms Normal sinus rhythm Nonspecific T wave abnormality Prolonged QT Abnormal ECG When compared with ECG of 29-Nov-2022 18:09, Nonspecific T wave abnormality, worse in Inferior leads Nonspecific T wave abnormality now evident in Lateral leads QT has lengthened Confirmed by BELEM BALDWIN, DELVIN ([id number]), brands editor MARA PARKS ([id number]) on 08/04/2024 2:19:24 PM Referred By: Confirmed By: DELVIN PATRICIA MD
[2024-07-30 06:02] LABS: Bedside Glucose 115 mg/dL (74-106)
[2024-07-30 06:46] LABS: Hematocrit 26.8 % (37-47); Hemoglobin 8.4 g/dL (12.0-15.0); Mean Corp Hgb Conc 31.3 g/dL (32-36); Mean Corpuscular Volume 86.2 fL (81-99); Mean Platelet Vol. 10.4 fl (6.2-12.0); NRBC Flagged by Analyzer 0.3 % (0-5); POSITIVE COUNT YES; POSITIVE DIFFERENTIAL YES; POSITIVE MORPHOLOGY YES; RBC Distribution Width CV 20.2 % (11.6-14.6); Red Blood Count 3.11 M/mm3 (4.2-5.4); White Blood Count 29.9 K/mm3 (4.4-11.0)
[2024-07-30 07:00] LABS: Differential Indicated SCAN CRITERIA MET; Platelet Count 1069 K/mm3 (150-450)
[2024-07-30 07:13] LABS: International Normalized Ratio 1.3; Prothrombin Time (Protime)PT. 16.4 SECONDS (11.7-14.9)
[2024-07-30 07:14] LABS: Partial Thromboplast Time 32.1 Seconds (24.1-36.2)
[2024-07-30 07:35] LABS: AST(SGOT) 19 U/L (15-37); Alanine Aminotransfer ALT/SGPT 16 U/L (13-56); Albumin, Serum 2.6 g/dL (3.2-5.0); Alkaline Phosphatase 48 U/L (45-117); Anion Gap 8 (5-15); BUN 19 mg/dL (7-18); BUN/Creat Ratio 20.7 RATIO (10-20); Calcium,Total 7.9 mg/dL (8.5-10.1); Chloride 112 mmol/L (98-107); Creatinine, Serum 0.92 mg/dL (0.55-1.02); EST Glomerular Filtration Rate 63 mL/min (>60); Est Glom Filt Rate - Afr Amer 76 mL/min (>60); Estimated Creatinine Clearance 38.57 ml/min; Ferritin 69 ng/mL (8-252); Globulin 2.5 g/dL (2.2-4.2); Glucose 118 mg/dL (74-106); Potassium 4.1 mmol/L (3.5-5.1); Protein, Total 5.1 g/dL (6.4-8.2); Sodium Level 141 mmol/L (136-145)
--- NOTE | 2024-07-30 07:51 | PCM.PN.HOSP ---
Reason for Visit Reason for Visit: Diagnoses Gastrointestinal hemorrhage, unspecified (07/29/24) Objective Data Objective Data Vital Signs: Vital Signs Temp Pulse Resp BP Pulse Ox O2 Del Method 98.5 F 86 14 107/60 94 Room Air 07/30/24 05:28 07/30/24 05:28 07/30/24 05:28 07/30/24 05:28 07/30/24 05:28 07/30/24 05:28 Oxygen Delivery Method Room Air Weight: 125 lb 10.616 oz Body Mass Index (BMI) 22.9 Intake & Output: Intake and Output for Last 24 Hours 07/28/24 07/29/24 07/30/24 23:59 23:59 23:59 Intake Total 1111.67 / 1311.67 1748.33 / 1748.33 Balance 1111.67 / 1311.67 1748.33 / 1748.33 Lab / Micro Data 07/30/24 06:17 07/30/24 06:17 Labs: Laboratory Results - last 24 hr 07/29/24 18:22: WBC 42.0 H*, RBC 4.17 L, Hgb 11.4 L, Hct 36.9 L, MCV 88.5, MCH 27.3, MCHC 30.9 L, RDW Std Deviation 59.1 H, RDW Coeff of Venkata 18.6 H, Plt Count 1675 H*, MPV 10.4, Neut % (Auto) Not Reportable, Absolute Neuts (auto) 33.6 H, Absolute Lymphs (auto) 2.94, Total Counted 100, Neutrophils % (Manual) 61, Band Neutrophils % 19 H, Lymphocytes % (Manual) 7 L, Monocytes % (Manual) 2, Eosinophils % (Manual) 2, Metamyelocytes % 1, Myelocytes % 8 H, Nucleated RBCs/100 WBC 1, Differential Comment SEE COMMENTS, Diff Path Review May foll, Platelet Estimate MKD INC, RBC Morphology N CHROM, Anisocytosis RARE, Macrocytosis RARE, Ovalocytes RARE, Sodium 139, Potassium 3.7, Chloride 106, Carbon Dioxide 21.0, Anion Gap 12, BUN 18, Creatinine 1.14 H, Estim Creat Clear Calc 32.58, Est GFR (MDRD) Af Amer 59 L, Est GFR (MDRD) Non-Af 49 L, BUN/Creatinine Ratio 15.8, Glucose 243 H, Calcium 9.8, Total Bilirubin 0.50, AST 23, ALT 19, Alkaline Phosphatase 69, Total Protein 6.7, Albumin 3.4, Globulin 3.3, Albumin/Globulin Ratio 1.0, Lipase 22 07/29/24 19:12: Blood Type A NEGATIVE, Antibody Screen NEGATIVE, Crossmatch See Detail 07/29/24 19:17: PT 14.8, INR 1.1, APTT 29.7 07/29/24 20:40: Hgb 9.0 L, Hct 28.3 L 07/29/24 21:00: Urine Color Yellow, Urine Clarity Clear, Urine pH 5.0, Ur Specific [place] 1.020, Urine Protein 30 H, Urine Glucose (UA) Normal, Urine Ketones 15 H, Urine Occult Blood Negative, Urine Nitrite Negative, Urine Bilirubin Negative, Urine Urobilinogen Normal, Ur Leukocyte Esterase Negative, Urine RBC 0 SEEN, Urine WBC 0-5 SEEN, Ur Squamous Epith Cells 0 SEEN, Ur Renal Epithelial Cell 0-5 SEEN, Urine Bacteria 0 SEEN, Urine Mucus 1+ 07/29/24 22:09: Hgb 9.7 L, Hct 30.5 L, ESR 5, Phosphorus 4.2, Magnesium 2.3, Iron 31 L, TIBC 342, Iron Saturation 9.1 L, C-React Prot Ext Range < 2.90, Procalcitonin 0.13 H 07/29/24 22:43: POC Glucose 135 H 07/30/24 03:03: Hgb 7.4 L, Hct 24.0 L 07/30/24 05:30: POC Glucose 115 H 07/30/24 06:17: WBC 29.9 H, RBC 3.11 L, Hgb 8.4 L, Hct 26.8 L, MCV 86.2, MCH 27.0, MCHC 31.3 L, RDW Std Deviation 61.0 H, RDW Coeff of Venkata 20.2 H, Plt Count 1069 H*, MPV 10.4, Immature Gran % (Auto) 6.200 H, Neut % (Auto) 77.2 H, Lymph % (Auto) 7.0 L, [place] % (Auto) 7.6, Eos % (Auto) 1.1, Baso % (Auto) 0.9, Absolute Neuts (auto) 23.0 H, Absolute Lymphs (auto) 2.10, Nucleated RBC % 0.3, PT 16.4 H, INR 1.3, APTT 32.1, Sodium 141, Potassium 4.1, Chloride 112 H, Carbon Dioxide 22.0, Anion Gap 8, BUN 19 H, Creatinine 0.92, Estim Creat Clear Calc 38.57, Est GFR (MDRD) Af Amer 76, Est GFR (MDRD) Non-Af 63, BUN/Creatinine Ratio 20.7 H, Glucose 118 H, Calcium 7.9 L, Ferritin 69, Total Bilirubin 0.60, AST 19, ALT 16, Alkaline Phosphatase 48, Total Protein 5.1 L, Albumin 2.6 L, Globulin 2.5, Albumin/Globulin Ratio 1.0 Micro: Microbiology 07/29/24 18:56 Stool Stool Occult Blood (KAJAL) - Final Radiography Diagnostic Testing: Radiology Impression Abdomen/Pelvis CTA 07/29/24 19:24 IMPRESSION: No acute abnormalities in the abdomen or pelvis. Large hiatal hernia. Diverticulosis. Multiple chronic compression deformities of the visualized thoracolumbar spine. Electronically Signed: Jass Reynoso MD at 20:09 EST , Physical Exam Narrative Seen and examined. Patient looks fatigued and tired. Admitted with rectal bleeding with blood clots. Denies shortness of breath but really tired/fatigue on mild exertion. No abdominal pain Physical exam General: Alert, Oriented x3, Cooperative. Fatigue. BMI 23.0 kg/m? HEENT: Atraumatic, PERRLA, EOMI, Normocephalic Oral: Oral mucosa dry. No Gingival or Mucosal Lesions/ Ulcerations Neck: Supple, No JVD, Negative Carotid Bruits Chest wall/Lungs: Air entry diminished in bilateral lung bases. No crepitation/rhonchi Cardiovascular: Regular rate, Regular Rhythm, Normal S1, Normal S2, No M/G/R Abdomen: Bowel Sounds Present, Soft, Non Tender, Non-Distended : No dysuria. No renal angle tenderness. No suprapubic tenderness. Extremities: No edema, Capillary Refill Less than 3 Seconds Skin: No rashes, No breakdown Musculoskeletal: No Tenderness to Palpation of Joints or Extremities. ROM restricted. Neurological: Cranial nerves II-XII grossly intact, DTR 2+/4. No acute focal neurological deficit. Psych/Mental Status: Normal Affect, Appropriate. Assessment & Plan Assessment/Plan (1) Acute GI bleeding: PLAN: Plan The patient is an 79 y/o F was admitted for intermittent rectal bleeding with large blood clots, nausea and dehydration, fatigue, chills and shaking and malaise. #1. Acute GI Bleed w/ resultant Acute Blood Loss Anemia with underlying chronic iron deficiency reported per patient: Patient is being admitted in PCU. Stool guaiac negative. Hemoglobin dropped from 11.4->9.0. Iron profile shows serum iron 31, iron saturation 9.1%. TIBC normal. Ferritin 69 normal. Iron infusion ordered. 07/30: GI consulted. Possible will need colonoscopy. #2. Acute Thrombocytosis, Leukocytosis, Unclear etiology: Admission CBC with WC 42, platelet count 1675 with previous to this 11/25/2022 CBC with WBC 13.4 and platelet count 770 and high normal 360 and 450 in MayJune 2021. Total WBC count 42K, differential shows 19% band neutrophils, ANC 33.6 K, 7% lymphocyte and 8% myelocytes. Peripheral smear smear shows neutrophilia, monocytosis, normochromic red cell morphology. Milling Planer Operator Dr. Hua consulted with suspicion of hematological malignancy. INR 1.1?1.3. PTT normal. #3. Mildly elevated creatinine with baseline CKD stage III: Admission BUN/creatinine 18/1.1. Slightly elevated. Repeat normal at baseline. Does not meet criteria for STACEY #4. Acute hyperglycemia with no diabetic history: Admission glucose 243, no previous diabetic history, hemoglobin A1c requested, will maintain on Accu-Cheks with insulin sliding scale to be cautious every 6 hours given planned evaluation as noted #1 pending HgbA1c. #5. Former tobacco use: Encourage continued tobacco cessation. #6. DVT prophylaxis: SCDs. #7. CODE status: Patient MERON is her granddaughter and living will is she believes in place. Discussed CODE status at length including difference between FULL code, DNR-CCA and DNR-CC status. Following discussions about the differences in these status, requested Full Code status; however, she was initially unsure and discussed this at length with the daughter who is present but for now we will proceed with this CODE STATUS and plan to discuss these items with her granddaughter. Charges/Coding Visit Charges Inpatient E&M: 60636 Subs Hosp L2
[2024-07-30 08:21] LABS: Eosinophil 1 % (0-5); Lymphocyte 4 % (19-41); Metamyelocyte 6 % (0-1); Monocyte 1 % (0-10); Neutrophil-Band 2 % (0-5); Neutrophil-Segmented 86 % (47-70); Total Cells Counted 100 (MANUAL DIFF)
[2024-07-30 08:22] LABS: Hemoglobin A1c 5.5 % (3.8-5.6)
[2024-07-30 09:26] LABS: Ovalocyte 1+; Platelet Estimate MKD DEC (ADEQ); Platelet Morphology GIANT; Polychromasia 1+
[2024-07-30 09:27] LABS: Scan Smear per Review Criteria MANUAL DIFF
[2024-07-30 09:29] LABS: Neutrophil # 26.29 X10^3/uL (2.7-7.7)
[2024-07-30 09:30] LABS: Absolute Neutrophil Count 26.3 X10^3/uL (2.0-7.7)
[2024-07-30] MEDS: Pantoprazole Sodium 40 MG in 0.9% Normal Saline (100mL MB+) 100 ML 330 MG IV ×2 (11:04→20:24)
[2024-07-30] MEDS: Menthol/Lanolin/Calamine/Znox 113 GM Tube 1 APPLIC TOPICAL ×2 (11:05→20:24)
--- NOTE | 2024-07-30 11:30 | CASEMGMT ---
LUCILLE MCPHERSON Face to Face with patient for initial transition planning/care coordination assessment. RN CM introduced self and role at [facility]. Patient lying in bed, alert and oriented, daughter at bedside. Patient willing to participate in assessment and is able to answer all questions appropriately. Care providers, pharmacy, and demographics verified. Strata: 1 PCP: Thanh, patient states she is changing PCP Specialists: none Preferred Pharmacy: [facility] Insurance: [employer] [facility] Prescription Benefit: yes Living Will/HPOA: yes, granddaughter Linnea Lott LNOK: daughter, granddaughter Living Arrangements: Patient lives alone in a first floor apartment with 8-10 steps to enter the apartment. Patient states she is independent at home Transportation: self, daughter, granddaughter DME/HHC: Patient has shower chair, raised toilet, and walker at home. No previous HHC or SNF. Patient wishes to discharge home, will monitor progress with therapy and recommendations. Patient states she has no further needs or concerns at this time. CM to follow for discharge planning needs that may arise. Disposition Plan: Patient to discharge home with family support and follow-up plans in place. Will monitor for HHC at discharge. Esther FIGUEROA, RN, CM
[2024-07-30 11:49] LABS: Pathologist Review Reviewed
[2024-07-30 11:51] LABS: Pathologist Review Reviewed
[2024-07-30] MEDS: Sodium Ferric Gluconat/Sucrose 250 MG in 0.9% Normal Saline (250mL Bag) 250 ML 135 MG IV (14:17)
--- NOTE | 2024-07-30 14:48 | CON.PCM.ON_ITS ---
Assessment & Plan Assessment/Plan (1) Acute GI bleeding: Status: Acute Code(s): K92.2 - Gastrointestinal hemorrhage, unspecified Plan: Suggest supportive care with PRBC transfusion as needed. (2) Thrombocytosis: Status: Acute Code(s): D75.839 - Thrombocytosis, unspecified Plan: This may be Acute Phase Reaction effect from the GI bleed. Suggestive observation while GI bleed is managed. (3) Leukocytosis: Status: Acute Code(s): D72.829 - Elevated white blood cell count, unspecified Qualifiers: Leukocytosis type: bandemia Qualified Code(s): D72.825 - Bandemia Plan: This may be as a result of GI bleed. Suggest observation while GI bleed is managed. She can follow up as outpatient for evaluation if it does not resolve. Will not follow further on this admission. HPI Consult Data Date of Service:: 07/30/24 PCP / Referring Provider: Dr. An Law MD Attending: Dr. Stoney Webster MD Chief Complaint Chief Complaint: Asked to see patient for thrombocytosis, leukocytosis and anemia. History of Present Illness History of Present Illness: 79-year-old woman was admitted with hematochezia, was found to have leukocytosis, thrombocytosis and anemia. This is the first time that she has been told she has leukocytosis and thrombocytosis, she has not seen her primary physician for some time. She developed bleeding per rectum about 2 to 3 days ago. She denies abdominal pain, weight loss, nausea or vomiting Advanced Directives Power of Utility Porter: Yes Living Will: Yes [facility]LY [facility] Medical History (Updated 07/30/24 @ 14:[address] Tez Hua MD) Former tobacco use Iron deficiency COVID-19 CKD (chronic kidney disease), stage II Home Medications ?Medication ?Instructions ?Recorded ?Last Taken ?Type ascorbic acid (vitamin C) 1,000 mg 1,000 mg PO DAILY 06/06/21 Unknown History tablet,extended release (Vitamin C ER) cholecalciferol (vitamin D3) 25 25 mcg PO DAILY 06/06/21 Unknown History mcg (1,000 unit) capsule (Vitamin D3) [id number] 0.4 mg-calcium 162 1 tab PO DAILY 06/06/21 Unknown History mg-iron 18 [id number]-[id number] tablet Allergy/AdvReac Type Severity Reaction Status Date / Time venom-honey bee (bee venom Allergy Unknown Verified 07/29/24 18:10 (honey bee)) Family History (Updated 07/29/24 @ 22:[address] Jaylyn Garrido MD) Mother Cancer Father No problems noted. Surgical History Status post left breast lumpectomy Social History (Updated 07/29/24 @ 22:[address] Jaylyn Garrido MD) household members: none Smoking Status: Former smoker how long ago did patient quit smoking: Quit ~ 20 years prior, smoked 1-3 cig/day since teen off and on. alcohol intake: never substance use type: does not use Physical Exam Const alert, oriented x3 and no apparent distress HEENT normocephalic Eyes conjunctivae normal and no scleral icterus Neck supple Lymph Lymphatic: no lymphadenopathy noted Resp normal respiratory effort Cardio regular rate, regular rhythm, S1 normal heart sound and S2 normal heart sound GI normal to inspection, nondistended, normoactive bowel sounds Extremity no clubbing, cyanosis or edema Skin no rashes or lesions noted Neuro CN's II-XII intact bilaterally, moves all extremities and no focal motor deficits Psych mental status grossly normal Vital Signs Temperature 100.2 F H 07/30/24 14:15 Temperature Source Temporal 07/30/24 14:15 Pulse Rate 80 07/30/24 14:15 Respiratory Rate 16 07/30/24 14:15 Blood Pressure 105/64 07/30/24 14:15 Blood Pressure Mean 77 07/30/24 14:15 Blood Pressure Source Monitor 07/30/24 14:15 Blood Pressure Position Semi-Fowlers 07/30/24 14:15 Blood Pressure Location Right Arm 07/30/24 14:15 Pulse Ox 97 07/30/24 14:15 Oxygen Delivery Method Room Air 07/30/24 14:15 Laboratory Results - last 24 hr 07/29/24 18:22: WBC 42.0 H*, RBC 4.17 L, Hgb 11.4 L, Hct 36.9 L, MCV 88.5, MCH 27.3, MCHC 30.9 L, RDW Std Deviation 59.1 H, RDW Coeff of Venkata 18.6 H, Plt Count 1675 H*, MPV 10.4, Neut % (Auto) Not Reportable, Absolute Neuts (auto) 33.6 H, Absolute Lymphs (auto) 2.94, Total Counted 100, Neutrophils % (Manual) 61, Band Neutrophils % 19 H, Lymphocytes % (Manual) 7 L, Monocytes % (Manual) 2, Eosinophils % (Manual) 2, Metamyelocytes % 1, Myelocytes % 8 H, Nucleated RBCs/100 WBC 1, Differential Comment SEE COMMENTS, Diff Path Review Reviewed, Platelet Estimate MKD INC, RBC Morphology N CHROM, Anisocytosis RARE, Macrocytosis RARE, Ovalocytes RARE, Sodium 139, Potassium 3.7, Chloride 106, Carbon Dioxide 21.0, Anion Gap 12, BUN 18, Creatinine 1.14 H, Estim Creat Clear Calc 32.58, Est GFR (MDRD) Af Amer 59 L, Est GFR (MDRD) Non-Af 49 L, BUN/Creatinine Ratio 15.8, Glucose 243 H, Calcium 9.8, Total Bilirubin 0.50, AST 23, ALT 19, Alkaline Phosphatase 69, Total Protein 6.7, Albumin 3.4, Globulin 3.3, Albumin/Globulin Ratio 1.0, Lipase 22 07/29/24 19:12: Blood Type A NEGATIVE, Antibody Screen NEGATIVE, Crossmatch See Detail 07/29/24 19:17: PT 14.8, INR 1.1, APTT 29.7 07/29/24 20:40: Hgb 9.0 L, Hct 28.3 L 07/29/24 21:00: Urine Color Yellow, Urine Clarity Clear, Urine pH 5.0, Ur Specific [employer] [employer] 1.020, Urine Protein 30 H, Urine Glucose (UA) Normal, Urine Ketones 15 H, Urine Occult Blood Negative, Urine Nitrite Negative, Urine Bilirubin Negative, Urine Urobilinogen Normal, Ur Leukocyte Esterase Negative, Urine RBC 0 SEEN, Urine WBC 0-5 SEEN, Ur Squamous Epith Cells 0 SEEN, Ur Renal Epithelial Cell 0-5 SEEN, Urine Bacteria 0 SEEN, Urine Mucus 1+ 07/29/24 22:09: Hgb 9.7 L, Hct 30.5 L, ESR 5, Phosphorus 4.2, Magnesium 2.3, Iron 31 L, TIBC 342, Iron Saturation 9.1 L, C-React Prot Ext Range < 2.90, Procalcitonin 0.13 H 07/29/24 22:43: POC Glucose 135 H 07/30/24 03:03: Hgb 7.4 L, Hct 24.0 L 07/30/24 05:30: POC Glucose 115 H 07/30/24 06:17: WBC 29.9 H, RBC 3.11 L, Hgb 8.4 L, Hct 26.8 L, MCV 86.2, MCH 27.0, MCHC 31.3 L, RDW Std Deviation 61.0 H, RDW Coeff of Venkata 20.2 H, Plt Count 1069 H*, MPV 10.4, Immature Gran % (Auto) REGISTERED SAFETY ENGINEER, Neut % (Auto) REGISTERED SAFETY ENGINEER, Lymph % (Auto) REGISTERED SAFETY ENGINEER, [place] % (Auto) REGISTERED SAFETY ENGINEER, Eos % (Auto) REGISTERED SAFETY ENGINEER, Baso % (Auto) REGISTERED SAFETY ENGINEER, Absolute Neuts (auto) 26.3 H, Absolute Lymphs (auto) 1.20, Total Counted 100, Neutrophils % (Manual) 86 H, Band Neutrophils % 2, Lymphocytes % (Manual) 4 L, Monocytes % (Manual) 1, Eosinophils % (Manual) 1, Metamyelocytes % 6 H, Nucleated RBC % 0.3, Diff Path Review Reviewed, Platelet Estimate MKD DEC, Plt Morphology Comment GIANT, Polychromasia 1+, Ovalocytes 1+, PT 16.4 H, INR 1.3, APTT 32.1, Sodium 141, Potassium 4.1, Chloride 112 H, Carbon Dioxide 22.0, Anion Gap 8, BUN 19 H, Creatinine 0.92, Estim Creat Clear Calc 38.57, Est GFR (MDRD) Af Amer 76, Est GFR (MDRD) Non-Af 63, BUN/Creatinine Ratio 20.7 H, Glucose 118 H, Hemoglobin A1c 5.5, Calcium 7.9 L, Ferritin 69, Total Bilirubin 0.60, AST 19, ALT 16, Alkaline Phosphatase 48, Total Protein 5.1 L, Albumin 2.6 L, Globulin 2.5, Albumin/Globulin Ratio 1.0 Microbiology 07/29/24 18:56 Stool Stool Occult Blood (KAJAL) - Final Diagnostic Data Abdomen/Pelvis CTA 07/29/24 19:24 IMPRESSION: No acute abnormalities in the abdomen or pelvis. Large hiatal hernia. Diverticulosis. Multiple chronic compression deformities of the visualized thoracolumbar spine. Electronically Signed: Jass Reynoso MD at 20:09 EST ,
--- NOTE | 2024-07-30 16:06 | PRE.ANES_ITS ---
ASA Classification* ASA Classification ASA Classification: 3 Assessment & Plan Anesthesia* Anesthesia Assessment Anesthesia Assessment: Discussed sedation and/or anesthesia options, risks, benefits, and alternatives with patient/parents/legal guardian/POA. Questions invited. The patient/parents/legal guardian/POA seems to understand and agrees to proceed with anesthesia plan. Reviewed the physical assessment, medical history, allergy history and patient home medications list prior to surgery/procedure/anesthetic and documented any changes. Performed airway and anesthesia risk assessments. Anesthesia Type Anesthesia Type: MAC History Source History Obtained from:: Patient and Chart Anesthesia Focused Assessment* Temperature: 100.2 F Pulse Rate: 80 Blood Pressure: 105/64 Respiratory Rate: 16 Pulse Ox: 97 Oxygen Delivery Method: Room Air Airway Assessment Mouth opens: >3 cm Mallampati Score: II Focused Labs Anesthesia Preop lab: CBC WBC 29.9 K/mm3 (4.4-11.0) H 07/30/24 06:17 RBC 3.11 M/mm3 (4.2-5.4) L 07/30/24 06:17 Hgb 8.4 g/dL (12.0-15.0) L 07/30/24 06:17 Hct 26.8 % (37-47) L 07/30/24 06:17 Plt Count 1069 K/mm3 (150-450) H* 07/30/24 06:17 CHEMISTRY Potassium 4.1 mmol/L (3.5-5.1) 07/30/24 06:17 Sodium 141 mmol/L (136-145) 07/30/24 06:17 Magnesium 2.3 mg/dL (1.6-2.6) 07/29/24 22:09 Phosphorus 4.2 mg/dL (2.5-4.9) 07/29/24 22:09 BUN 19 mg/dL (7-18) H 07/30/24 06:17 Creatinine 0.92 mg/dL (0.55-1.02) 07/30/24 06:17 Glucose 118 mg/dL (74-106) H 07/30/24 06:17 POC Glucose 115 mg/dL (74-106) H 07/30/24 05:30 COAG PT 16.4 SECONDS (11.7-14.9) H 07/30/24 06:17 Pre-Assessment Diagnosis/Proposed Procedure Planned Operative Procedure(s): EGD Anesthesia History 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 When Was Last Pacemaker Check QUESTION #4 FULL TEXT: You/Your Family Experience fever (hyperthermia) with Anesthesia Last Oral Intake Last Oral intake: Last Oral Intake NPO since Meds taken in AM with sips of water? Meds patient instructed to take am of surgery PONV PONV - event sales manager: PONV - event sales manager Female HX of Motion Sickness HX of N/V After Surgery Non-Smoker Duration of Surgery greater than 60 minutes Number of Risk Factors PONV Score Height & Weight Height & Weight: Anesthesia: Height & Weight Height 5 ft 2 in 07/30/24 11:08 Weight: 57 kg 07/30/24 11:08 Body Mass Index (BMI) 22.9 07/30/24 05:54 Respiratory Assessment Respiratory Assessment - event sales manager: Respiratory Tract Infection Hx - event sales manager Hx Respiratory Tract Infection STOP Sleep Apnea STOP Sleep Apnea - event sales manager: STOP Sleep Apnea - event sales manager Hx Hypertension Yes 07/30/24 12:43 Hx Sleep Apnea No 07/29/24 22:21 CPAP BIPAP Do you snore loudly (louder No 07/29/24 22:21 than talking or can be heard Do you often feel tired/ No 07/29/24 22:21 fatigued/ sleepy during daytime? Has anyone observed you stop No 07/29/24 22:21 breathing during sleep? STOP Results Negative 07/29/24 22:21 QUESTION #5 FULL TEXT : Do you snore loudly (louder than talking or can be heard through closed doors)? Tobacco Use History Tobacco Use History - event sales manager: Tobacco Use History - event sales manager Tobacco Use Smoking Status Former smoker 07/29/24 22:58 Hx Tobacco Use No 07/29/24 22:21 Years Smoking Packs Smoked per Day Smoking Cessation Date was within the last 15 years Hx Smoking Cessation Date Hx Smoking Cessation Counseling Hematologic Medial History Hematologic Hx - event sales manager: Hematologic Medical Hx - machine umbrella tipper Hx of Blood Transfusion No 07/29/24 22:21 Hx of Transfusion in last 3 No 07/29/24 22:21 Months Date of Last Transfusion (if within last 3 months) Ever experience any problems No 07/29/24 22:21 with transfusion(s)? Specify any problems Hx of Preganancy in last 3 No 07/29/24 22:21 Months Nurse Filling Out Transfusion RWALKER 07/29/24 22:21 & Questions: Date: 07/29/24 07/29/24 22:21 Time: :07/29/24 22:21 Patient unable to answer at this time (ie. confused, unrespo /Reproduction History /Reproductive History - event sales manager: /Reproductive Hx- event sales manager Hx Now Gestational Age (in weeks): EDC: Hx Hx Para Hx Section SAB Active Medications Active Medications: Current Medications Generic Name Dose Route Start Last Admin Trade Name Freq PRN Reason Stop Dose Admin Acetaminophen 650 mg 07/29/24 22:23 Acetaminophen 325 Mg Tablet PO Q4H PRN PRN Fever, pain 1-04/17 Calamine/Phenol 1 applic 07/30/24 10:00 07/30/24 14:17 Menthol/Lanolin/Calamine/Znox 113 Gm Tube TOPICAL Not Given 4X/DAY GILMAR Protocol Glucagon 1 mg 07/29/24 22:31 Glucagon 1 Mg/Ml Syringe IM X1 PRN HYPOGLYCEMIA Protocol Hydralazine HCl 10 mg 07/29/24 22:23 Hydralazine 20 Mg/Ml Vial IV Q4H PRN PRN SBP > 160 Protocol Pantoprazole Sodium 40 mg/ 110 mls @ 330 mls/hr 07/29/24 22:35 07/30/24 12:00 Sodium Chloride IV Infused Q12 GILMAR Infusion Dextrose 250 mls @ 0 mls/hr 07/29/24 22:31 Dextrose 10%-Water IV .Q0M PRN HYPOGLYCEMIA Protocol As Directed Insulin Human Lispro 0 unit 07/30/24 00:00 07/30/24 11:05 Insulin Lispro 100 Unit/Ml Insuln.Pen SC Not Given Q6H GILMAR Protocol Melatonin 3 mg 07/29/24 22:31 Melatonin 3 Mg Tablet PO QHS PRN PRN INSOMNIA Ondansetron HCl 4 mg 07/29/24 22:31 Ondansetron 4 Mg/2 Ml Vial IV Q8H PRN PRN NAUSEA/VOMITING Prochlorperazine Edisylate 5 mg 07/29/24 22:31 Prochlorperazine 10 Mg/2 Ml Vial IV Q4H PRN PRN Breakthrough nausea/vomiting Sodium Chloride 10 - 40 ml 07/29/24 22:23 0.9% Saline Lock 10 Ml Syringe IV UD PRN SALINE FLUSH PFSH Medical History Former tobacco use Iron deficiency COVID-19 CKD (chronic kidney disease), stage II Home Medications ?Medication ?Instructions ?Recorded ?Last Taken ?Type ascorbic acid (vitamin C) 1,000 mg 1,000 mg PO DAILY 06/06/21 Unknown History tablet,extended release (Vitamin C ER) cholecalciferol (vitamin D3) 25 25 mcg PO DAILY 06/06/21 Unknown History mcg (1,000 unit) capsule (Vitamin D3) [id number] 0.4 mg-calcium 162 1 tab PO DAILY 06/06/21 Unknown History mg-iron 18 [id number]-gbgdnx tablet Allergy/AdvReac Type Severity Reaction Status Date / Time venom-honey bee (bee venom Allergy Unknown Verified 07/29/24 18:10 (honey bee)) Family History Mother Cancer Father No problems noted. Surgical History Status post left breast lumpectomy Social History household members: none Smoking Status: Former smoker how long ago did patient quit smoking: Quit ~ 20 years prior, smoked 1-3 cig/day since teen off and on. alcohol intake: never substance use type: does not use Review of Systems (Anesthesia) ROS Narrative System reviewed and no additional complaints, except as documented.
--- NOTE | 2024-07-30 16:54 | PN.GI_ITS ---
Subjective Subjective Patient without any bleeding overnight. Objective Data Objective Data Vital Signs: Vital Signs Temp Pulse Resp BP Pulse Ox O2 Del Method 100.2 F H 80 16 105/64 97 Room Air 07/30/24 16:10 07/30/24 16:10 07/30/24 16:10 07/30/24 16:10 07/30/24 16:10 07/30/24 16:10 Oxygen Delivery Method Room Air Weight: 125 lb 10.616 oz Body Mass Index (BMI) 22.9 Intake & Output: Intake and Output for Last 24 Hours 07/28/24 07/29/24 07/30/24 23:59 23:59 23:59 Intake Total 1111.67 / 1311.67 2853.33 / 2853.33 Balance 1111.67 / 1311.67 2853.33 / 2853.33 Lab / Micro Data 07/30/24 06:17 07/30/24 06:17 Labs: Laboratory Results - last 24 hr 07/29/24 18:22: WBC 42.0 H*, RBC 4.17 L, Hgb 11.4 L, Hct 36.9 L, MCV 88.5, MCH 27.3, MCHC 30.9 L, RDW Std Deviation 59.1 H, RDW Coeff of Venkata 18.6 H, Plt Count 1675 H*, MPV 10.4, Neut % (Auto) Not Reportable, Absolute Neuts (auto) 33.6 H, Absolute Lymphs (auto) 2.94, Total Counted 100, Neutrophils % (Manual) 61, Band Neutrophils % 19 H, Lymphocytes % (Manual) 7 L, Monocytes % (Manual) 2, Eosinophils % (Manual) 2, Metamyelocytes % 1, Myelocytes % 8 H, Nucleated RBCs/100 WBC 1, Differential Comment SEE COMMENTS, Diff Path Review Reviewed, Platelet Estimate MKD INC, RBC Morphology N CHROM, Anisocytosis RARE, Macrocytosis RARE, Ovalocytes RARE, Sodium 139, Potassium 3.7, Chloride 106, Carbon Dioxide 21.0, Anion Gap 12, BUN 18, Creatinine 1.14 H, Estim Creat Clear Calc 32.58, Est GFR (MDRD) Af Amer 59 L, Est GFR (MDRD) Non-Af 49 L, BUN/Creatinine Ratio 15.8, Glucose 243 H, Calcium 9.8, Total Bilirubin 0.50, AST 23, ALT 19, Alkaline Phosphatase 69, Total Protein 6.7, Albumin 3.4, Globulin 3.3, Albumin/Globulin Ratio 1.0, Lipase 22 07/29/24 19:12: Blood Type A NEGATIVE, Antibody Screen NEGATIVE, Crossmatch See Detail 07/29/24 19:17: PT 14.8, INR 1.1, APTT 29.7 07/29/24 20:40: Hgb 9.0 L, Hct 28.3 L 07/29/24 21:00: Urine Color Yellow, Urine Clarity Clear, Urine pH 5.0, Ur Specific [place] 1.020, Urine Protein 30 H, Urine Glucose (UA) Normal, Urine Ketones 15 H, Urine Occult Blood Negative, Urine Nitrite Negative, Urine Bilirubin Negative, Urine Urobilinogen Normal, Ur Leukocyte Esterase Negative, Urine RBC 0 SEEN, Urine WBC 0-5 SEEN, Ur Squamous Epith Cells 0 SEEN, Ur Renal Epithelial Cell 0-5 SEEN, Urine Bacteria 0 SEEN, Urine Mucus 1+ 07/29/24 22:09: Hgb 9.7 L, Hct 30.5 L, ESR 5, Phosphorus 4.2, Magnesium 2.3, I anna 31 L, TIBC 342, Iron Saturation 9.1 L, C-React Prot Ext Range < 2.90, P rocalcitonin 0.13 H 07/29/24 22:43: POC Glucose 135 H 07/30/24 03:03: Hgb 7.4 L, Hct 24.0 L 07/30/24 05:30: POC Glucose 115 H 07/30/24 06:17: WBC 29.9 H, RBC 3.11 L, Hgb 8.4 L, Hct 26.8 L, MCV 86.2, MCH 27.0, MCHC 31.3 L, RDW Std Deviation 61.0 H, RDW Coeff of Venkata 20.2 H, Plt Count 1069 H*, MPV 10.4, Immature Gran % (Auto) LEATHER PRODUCTION MACHINE OPERATOR, Neut % (Auto) LEATHER PRODUCTION MACHINE OPERATOR, Lymph % (Auto) LEATHER PRODUCTION MACHINE OPERATOR, [place] % (Auto) LEATHER PRODUCTION MACHINE OPERATOR, Eos % (Auto) LEATHER PRODUCTION MACHINE OPERATOR, Baso % (Auto) LEATHER PRODUCTION MACHINE OPERATOR, Absolute Neuts (auto) 26.3 H, Absolute Lymphs (auto) 1.20, Total Counted 100, Neutrophils % (Manual) 86 H, Band Neutrophils % 2, Lymphocytes % (Manual) 4 L, Monocytes % (Manual) 1, Eosinophils % (Manual) 1, Metamyelocytes % 6 H, Nucleated RBC % 0.3, Diff Path Review Reviewed, Platelet Estimate MKD DEC, Plt Morphology Comment GIANT, Polychromasia 1+, Ovalocytes 1+, PT 16.4 H, INR 1.3, APTT 32.1, Sodium 141, Potassium 4.1, Chloride 112 H, Carbon Dioxide 22.0, Anion Gap 8, BUN 19 H, Creatinine 0.92, Estim Creat Clear Calc 38.57, Est GFR (MDRD) Af Amer 76, Est GFR (MDRD) Non-Af 63, BUN/Creatinine Ratio 20.7 H, Glucose 118 H, Hemoglobin A1c 5.5, Calcium 7.9 L, Ferritin 69, Total Bilirubin 0.60, AST 19, ALT 16, Alkaline Phosphatase 48, Total Protein 5.1 L, Albumin 2.6 L, Globulin 2.5, Albumin/Globulin Ratio 1.0 Micro: Microbiology 07/29/24 18:56 Stool Stool Occult Blood (KAJAL) - Final Radiography Diagnostic Testing: Radiology Impression Abdomen/Pelvis CTA 07/29/24 19:24 IMPRESSION: No acute abnormalities in the abdomen or pelvis. Large hiatal hernia. Diverticulosis. Multiple chronic compression deformities of the visualized thoracolumbar spine. Electronically Signed: Jass Reynoso MD at 20:09 EST , Physical Exam Const alert, oriented x3 and no apparent distress HEENT normocephalic Eyes conjunctivae normal and no scleral icterus Neck supple Lymph Lymphatic: no lymphadenopathy noted Resp normal respiratory effort Cardio regular rate, regular rhythm, S1 normal heart sound and S2 normal heart sound GI normal to inspection, nondistended, normoactive bowel sounds Extremity no clubbing, cyanosis or edema Skin no rashes or lesions noted Neuro CN's II-XII intact bilaterally, moves all extremities and no focal motor deficits Psych mental status grossly normal Assessment & Plan Assessment/Plan (1) Acute GI bleeding: PLAN: Plan The patient is an 79 y/o F presents to the [facility] ED on 07/29/24 with history of persistent intermittent large blood clots being passed while she is having bowel movements with stools intermittently dark Acute GI Bleed w/ resultant Acute Blood Loss Anemia with underlying chronic iron deficiency reported per patient: Hgb dropped in the ED 11.4->9.0. Will perform an upper endoscopy to evaluate her upper GI tract. If this is negative then she may need a colonoscopy. Acute Thrombocytosis, Leukocytosis, Unclear etiology: Hematology consulted 07/30/2024-we will perform an upper endoscopy today. Further recommendation to follow. Charges/Coding Visit Charges Inpatient E&M: 67753 Subs Hosp L2
--- NOTE | 2024-07-30 17:10 | OP.EGD_ITS ---
Patient Name: Yissel Villa Procedure Date: 07/30/2024 4:52 PM Date of : 1945 Age: 79 Procedure: Upper GI endoscopy Indications: Acute post hemorrhagic anemia, Melena Providers: Jaden Paul DO Medicines: Monitored Anesthesia Care Patient Profile: This is an 79 year old female. Refer to note in patient chart for documentation of history and physical. Patient has symptoms of acute abdominal cramping and acute epigastric abdominal pain. Complications: No immediate complications. Procedure: Pre-Anesthesia Assessment: - Prior to the procedure, a History and Physical was performed, and patient medications and allergies were reviewed. The patient is competent. The risks and benefits of the procedure and the sedation options and risks were discussed with the patient. All questions were answered and informed consent was obtained. Patient identification and proposed procedure were verified by the physician in the pre-procedure area. Mental Status Examination: alert and oriented. Airway Examination: normal oropharyngeal airway and neck mobility. Respiratory Examination: clear to auscultation. CV Examination: normal. Prophylactic Antibiotics: The patient does not require prophylactic antibiotics. Prior Anticoagulants: The patient has taken no anticoagulant or antiplatelet agents except for NSAID medication. ASA Grade Assessment: III - A patient with severe systemic disease. After reviewing the risks and benefits, the patient was deemed in satisfactory condition to undergo the procedure. The anesthesia plan was to use monitored anesthesia care (MAC). Immediately prior to administration of medications, the patient was re-assessed for adequacy to receive sedatives. The heart rate, respiratory rate, oxygen saturations, blood pressure, adequacy of pulmonary ventilation, and response to care were monitored throughout the procedure. The physical status of the patient was re-assessed after the procedure. After obtaining informed consent, the endoscope was passed under direct vision. Throughout the procedure, the patient's blood pressure, pulse, and oxygen saturations were monitored continuously. The Endoscope was introduced through the mouth, and advanced to the fourth part of the duodenum. Small bowel enteroscopy was deemed necessary. The upper GI endoscopy was accomplished without difficulty. The patient tolerated the procedure well. Scope In: 5:03:51 PM Scope Out: 5:06:18 PM Total Procedure Duration Time 0 hours 2 minutes 27 seconds Findings: Abnormal motility was noted in the esophagus. The cricopharyngeus was abnormal. There are extra peristaltic waves in the esophageal body. The distal esophagus/lower esophageal sphincter is spastic, but gives up passage to the endoscope. Tertiary peristaltic waves are noted. A large hiatal hernia was present. The exam of the duodenum was otherwise normal. Impression: - Abnormal esophageal motility, suspicious for esophageal spasm. - Large hiatal hernia. - No specimens collected. Recommendation: - Return patient to [facility] for [facility] care. - Full liquid diet. - Continue present medications. Procedure Code(s): --- Professional --- 80184, Small intestinal endoscopy, enteroscopy beyond second portion of duodenum, not including ileum; diagnostic, including collection of specimen(s) by brushing or washing, when performed (separate procedure) CPT copyright 2021 [employer]. All rights reserved. The codes documented in this report are preliminary and upon anodic operator review may be revised to meet current compliance requirements. Jaden Paul DO 07/30/2024 5:10:29 PM This report has been signed electronically. Number of Addenda: 0 Note Initiated On: 07/30/2024 4:52 PM
--- NOTE | 2024-07-30 17:11 | OP.CCLET_ITS ---
07/30/2024 An Law MD [id number] [place] [address] Re : Upper GI endoscopy procedure for Yissel Villa Dear Dr. Law This procedure was performed on Tuesday, July 30, 2024. My impressions and recommendations are as follows: Impressions : - Abnormal esophageal motility, suspicious for esophageal spasm. - Large hiatal hernia. - No specimens collected. Recommendations : - [facility]. - Full liquid diet. - Continue present medications. My findings are described in the full procedure note, which is enclosed. If I can be of further assistance, please feel free to contact me at . Sincerely, Jaden Paul, 07/30/2024 5:10:29 PM This report has been signed electronically.
--- NOTE | 2024-07-30 17:11 | PCM.POST.ANE ---
Anesthesia: Postop Eval I Current Vital Signs Temperature: 98 F Pulse Rate: 88 Blood Pressure: 114/52 Respiratory Rate: 20 Pulse Ox: 98 Assessment Airway patent: Yes Spontaneous unlabored respirations: Yes nausea: No Vomiting: No Anesthesia Complication: No Fluid Hydration Crystalloid volume administer (ml): 10 Total IV fluid infused: 10 Progress Note Anesthesia document: Postop Eval 1 completed: Yes
--- NOTE | 2024-07-30 17:25 | POSTOPAN2_ITS ---
Anesthesia Postop Eval I Sum Postop Eval Completion status Anesthesia document: Postop Eval 1 completed: Yes Anesthesia Postop Eval I Summary Anesthesia Postop Eval I Summary: Anesthesia Postop Eval I: Assessment Summary Airway patent Yes 07/30/24 17:[email or web address] Spontaneous unlabored Yes 07/30/24 17:[address] [email or web address] respirations Mental status nausea No 07/30/24 17:[address] [email or web address] Vomiting No 07/30/24 17:[email or web address] [email or web address] Anesthesia Postop Eval I: Fluid Summary Crystalloid volume administer 10 07/30/24 17:[email or web address] (ml) Colloids volume administered ( ml) Blood Product volume administered (ml) Total IV fluid infused 10 07/30/24 17:[email or web address] [email or web address] Anesthesia Postop Eval I: Summary Notes Anesthesia Complication No 07/30/24 17:[email or web address] Anesthesia Complication Comment: Post-operative progress note Anesthesia: Postop Eval II Evaluation Mental status: Awake Pain Level: 0 nausea: No Vomiting: No Complications Anesthesia Complication: No
--- NOTE | 2024-07-30 17:25 | PCM.POSTANE2 ---
Anesthesia Postop Eval I Sum Postop Eval Completion status Anesthesia document: Postop Eval 1 completed: Yes Anesthesia Postop Eval I Summary Anesthesia Postop Eval I Summary: Anesthesia Postop Eval I: Assessment Summary Airway patent Yes 07/30/24 17:11 [email or web address] Spontaneous unlabored Yes 07/30/24 17:11 [email or web address] respirations Mental status nausea No 07/30/24 17:11 [email or web address] Vomiting No 07/30/24 17:11 [email or web address] Anesthesia Postop Eval I: Fluid Summary Crystalloid volume administer 10 07/30/24 17:11 [email or web address] (ml) Colloids volume administered ( ml) Blood Product volume administered (ml) Total IV fluid infused 10 07/30/24 17:11 [email or web address] Anesthesia Postop Eval I: Summary Notes Anesthesia Complication No 07/30/24 17:11 [email or web address] Anesthesia Complication Comment: Post-operative progress note Anesthesia: Postop Eval II Evaluation Mental status: Awake Pain Level: 0 nausea: No Vomiting: No Complications Anesthesia Complication: No
--- NOTE | 2024-07-30 17:34 | EX.PCM.PN.GI ---
Subjective Subjective I talk with the patient's daughter and she said that she prepped a little bit for colonoscopy last night but did not complete the prep. We will schedule her for colonoscopy tomorrow and I will put the prep and to start POLINA. Objective Data Objective Data Vital Signs: Vital Signs Temp Pulse Resp BP Pulse Ox O2 Del Method 97.8 F 80 16 120/66 97 Room Air 07/30/24 17:25 07/30/24 17:25 07/30/24 17:25 07/30/24 17:25 07/30/24 17:25 07/30/24 17:25 Oxygen Delivery Method Room Air Weight: 125 lb 10.616 oz Body Mass Index (BMI) 22.9 Intake & Output: Intake and Output for Last 24 Hours 07/28/24 07/29/24 07/30/24 23:59 23:59 23:59 Intake Total 1111.67 / 1311.67 2853.33 / 2853.33 Balance 1111.67 / 1311.67 2853.33 / 2853.33 Lab / Micro Data 07/30/24 06:17 07/30/24 06:17 Labs: Laboratory Results - last 24 hr 07/29/24 18:22: WBC 42.0 H*, RBC 4.17 L, Hgb 11.4 L, Hct 36.9 L, MCV 88.5, MCH 27.3, MCHC 30.9 L, RDW Std Deviation 59.1 H, RDW Coeff of Venkata 18.6 H, Plt Count 1675 H*, MPV 10.4, Neut % (Auto) Not Reportable, Absolute Neuts (auto) 33.6 H, Absolute Lymphs (auto) 2.94, Total Counted 100, Neutrophils % (Manual) 61, Band Neutrophils % 19 H, Lymphocytes % (Manual) 7 L, Monocytes % (Manual) 2, Eosinophils % (Manual) 2, Metamyelocytes % 1, Myelocytes % 8 H, Nucleated RBCs/100 WBC 1, Differential Comment SEE COMMENTS, Diff Path Review Reviewed, Platelet Estimate MKD INC, RBC Morphology N CHROM, Anisocytosis RARE, Macrocytosis RARE, Ovalocytes RARE, Sodium 139, Potassium 3.7, Chloride 106, Carbon Dioxide 21.0, Anion Gap 12, BUN 18, Creatinine 1.14 H, Estim Creat Clear Calc 32.58, Est GFR (MDRD) Af Amer 59 L, Est GFR (MDRD) Non-Af 49 L, BUN/Creatinine Ratio 15.8, Glucose 243 H, Calcium 9.8, Total Bilirubin 0.50, AST 23, ALT 19, Alkaline Phosphatase 69, Total Protein 6.7, Albumin 3.4, Globulin 3.3, Albumin/Globulin Ratio 1.0, Lipase 22 07/29/24 19:12: Blood Type A NEGATIVE, Antibody Screen NEGATIVE, Crossmatch See Detail 07/29/24 19:17: PT 14.8, INR 1.1, APTT 29.7 07/29/24 20:40: Hgb 9.0 L, Hct 28.3 L 07/29/24 21:00: Urine Color Yellow, Urine Clarity Clear, Urine pH 5.0, Ur Specific [place] 1.020, Urine Protein 30 H, Urine Glucose (UA) Normal, Urine Ketones 15 H, Urine Occult Blood Negative, Urine Nitrite Negative, Urine Bilirubin Negative, Urine Urobilinogen Normal, Ur Leukocyte Esterase Negative, Urine RBC 0 SEEN, Urine WBC 0-5 SEEN, Ur Squamous Epith Cells 0 SEEN, Ur Renal Epithelial Cell 0-5 SEEN, Urine Bacteria 0 SEEN, Urine Mucus 1+ 07/29/24 22:09: Hgb 9.7 L, Hct 30.5 L, ESR 5, Phosphorus 4.2, Magnesium 2.3, Iron 31 L, TIBC 342, Iron Saturation 9.1 L, C-React Prot Ext Range < 2.90, Procalcitonin 0.13 H 07/29/24 22:43: POC Glucose 135 H 07/30/24 03:03: Hgb 7.4 L, Hct 24.0 L 07/30/24 05:30: POC Glucose 115 H 07/30/24 06:17: WBC 29.9 H, RBC 3.11 L, Hgb 8.4 L, Hct 26.8 L, MCV 86.2, MCH 27.0, MCHC 31.3 L, RDW Std Deviation 61.0 H, RDW Coeff of Venkata 20.2 H, Plt Count 1069 H*, MPV 10.4, Immature Gran % (Auto) CLINICAL LABORATORY TECHNOLOGIST, Neut % (Auto) CLINICAL LABORATORY TECHNOLOGIST, Lymph % (Auto) CLINICAL LABORATORY TECHNOLOGIST, [place] % (Auto) CLINICAL LABORATORY TECHNOLOGIST, Eos % (Auto) CLINICAL LABORATORY TECHNOLOGIST, Baso % (Auto) CLINICAL LABORATORY TECHNOLOGIST, Absolute Neuts (auto) 26.3 H, Absolute Lymphs (auto) 1.20, Total Counted 100, Neutrophils % (Manual) 86 H, Band Neutrophils % 2, Lymphocytes % (Manual) 4 L, Monocytes % (Manual) 1, Eosinophils % (Manual) 1, Metamyelocytes % 6 H, Nucleated RBC % 0.3, Diff Path Review Reviewed, Platelet Estimate MKD DEC, Plt Morphology Comment GIANT, Polychromasia 1+, Ovalocytes 1+, PT 16.4 H, INR 1.3, APTT 32.1, Sodium 141, Potassium 4.1, Chloride 112 H, Carbon Dioxide 22.0, Anion Gap 8, BUN 19 H, Creatinine 0.92, Estim Creat Clear Calc 38.57, Est GFR (MDRD) Af Amer 76, Est GFR (MDRD) Non-Af 63, BUN/Creatinine Ratio 20.7 H, Glucose 118 H, Hemoglobin A1c 5.5, Calcium 7.9 L, Ferritin 69, Total Bilirubin 0.60, AST 19, ALT 16, Alkaline Phosphatase 48, Total Protein 5.1 L, Albumin 2.6 L, Globulin 2.5, Albumin/Globulin Ratio 1.0 Micro: Microbiology 07/29/24 18:56 Stool Stool Occult Blood (KAJAL) - Final Radiography Diagnostic Testing: Radiology Impression Abdomen/Pelvis CTA 07/29/24 19:24 IMPRESSION: No acute abnormalities in the abdomen or pelvis. Large hiatal hernia. Diverticulosis. Multiple chronic compression deformities of the visualized thoracolumbar spine. Electronically Signed: Jass Reynoso MD at 20:09 EST , Physical Exam Const alert, oriented x3 and no apparent distress HEENT normocephalic Eyes conjunctivae normal and no scleral icterus Neck supple Lymph Lymphatic: no lymphadenopathy noted Resp normal respiratory effort Cardio regular rate, regular rhythm, S1 normal heart sound and S2 normal heart sound GI normal to inspection, nondistended, normoactive bowel sounds Extremity no clubbing, cyanosis or edema Skin no rashes or lesions noted Neuro CN's II-XII intact bilaterally, moves all extremities and no focal motor deficits Psych mental status grossly normal Assessment & Plan Assessment/Plan (1) Acute GI bleeding: PLAN: Plan The patient is an 79 y/o F presents to the [facility] ED on 07/29/24 with history of persistent intermittent large blood clots being passed while she is having bowel movements with stools intermittently dark Acute GI Bleed w/ resultant Acute Blood Loss Anemia with underlying chronic iron deficiency reported per patient: Hgb dropped in the ED 11.4->9.0. Will perform an upper endoscopy to evaluate her upper GI tract. If this is negative then she may need a colonoscopy. Acute Thrombocytosis, Leukocytosis, Unclear etiology: Hematology consulted 07/30/2024-we will perform an upper endoscopy today. No etiology of bleeding seen on upper endoscopy. Will prep for colonoscopy tomorrow. Charges/Coding Visit Charges Inpatient E&M: 40273 Subs Hosp L3
[2024-07-30] MEDS: Bisacodyl 5 MG Tablet 20 MG PO (18:12)
[2024-07-30] MEDS: Polyethylene Glycol 3350 BOWEL PREP 1 BOTTLE PO (20:18)
[2024-07-30] MEDS: 0.9% Saline Lock 10 ML Syringe IV (20:24)
[2024-07-30 23:24] LABS: Bedside Glucose 107 mg/dL (74-106)
[2024-07-31] VITALS (13 sets, daily range): BP systolic 105–132; BP diastolic 54–72; PULSE 78–97; RESP 14–18; TEMP 36.1–37.3; O2SAT 90–97; BMI 23.6
[2024-07-31 05:07] LABS: Hematocrit 23.9 % (37-47); Hemoglobin 7.5 g/dL (12.0-15.0); Mean Corp Hgb Conc 31.4 g/dL (32-36); Mean Corpuscular Hgb 27.4 pg (27.0-32.0); Mean Corpuscular Volume 87.2 fL (81-99); Mean Platelet Vol. 10.3 fl (6.2-12.0); Red Blood Count 2.74 M/mm3 (4.2-5.4); White Blood Count 23.5 K/mm3 (4.4-11.0)
[2024-07-31 05:29] LABS: Anion Gap 9 (5-15); BUN 12 mg/dL (7-18); BUN/Creat Ratio 14.8 RATIO (10-20); Chloride 116 mmol/L (98-107); Creatinine, Serum 0.81 mg/dL (0.55-1.02); EST Glomerular Filtration Rate 72 mL/min (>60); Est Glom Filt Rate - Afr Amer 87 mL/min (>60); Estimated Creatinine Clearance 43.81 ml/min; Glucose 82 mg/dL (74-106); Potassium 3.1 mmol/L (3.5-5.1); Sodium Level 143 mmol/L (136-145)
[2024-07-31 05:30] LABS: Platelet Count 950 K/mm3 (150-450)
[2024-07-31 06:25] LABS: Bedside Glucose 82 mg/dL (74-106)
[2024-07-31 08:07] LABS: Anisocytosis 2+; Hypochromasia 1+; Platelet Estimate MKD INC (ADEQ)
[2024-07-31 08:11] LABS: Total Cells Counted 100 (MANUAL DIFF)
[2024-07-31 08:12] LABS: Differential Indicated MANUAL DIFF; Platelet Morphology LARGE
[2024-07-31 08:17] LABS: POSITIVE COUNT YES; POSITIVE DIFFERENTIAL YES; POSITIVE MORPHOLOGY YES
--- NOTE | 2024-07-31 09:49 | PN.HOSP_ITS ---
Reason for Visit Reason for Visit: Diagnoses Bandemia (07/29/24) Thrombocytosis, unspecified (07/29/24) Gastrointestinal hemorrhage, unspecified (07/29/24) Subjective Subjective Patient is an 79-year-old lady admitted with bleeding per rectum Objective Data Objective Data Vital Signs: Vital Signs Temp Pulse Resp BP Pulse Ox O2 Del Method 98.3 F 87 16 119/54 L 94 Room Air 07/31/24 05:20 07/31/24 05:20 07/31/24 05:20 07/31/24 05:20 07/31/24 05:20 07/31/24 05:20 Oxygen Delivery Method Room Air Weight: 58.6 kg Body Mass Index (BMI) 23.6 Intake & Output: Intake and Output for Last 24 Hours 07/29/24 07/30/24 07/31/24 23:59 23:59 23:59 Intake Total 1111.67 / 1311.67 2963.33 / 5963.33 3000 / 3000 Balance 1111.67 / 1311.67 2963.33 / 5963.33 3000 / 3000 Lab / Micro Data 07/31/24 04:27 07/31/24 04:27 Labs: Laboratory Results - last 24 hr 07/29/24 18:22: Diff Path Review Reviewed 07/30/24 06:17: Diff Path Review Reviewed 07/30/24 22:58: POC Glucose 107 H 07/31/24 04:27: WBC 23.5 H, RBC 2.74 L, Hgb 7.5 L, Hct 23.9 L, MCV 87.2, MCH 27.4, MCHC 31.4 L, RDW Std Deviation 65.0 H, RDW Coeff of Venkata 21.0 H, Plt Count 950 H*, MPV 10.3, Neut % (Auto) Not Reportable, Absolute Neuts (auto) 17.6 H, Absolute Lymphs (auto) 3.50, Total Counted 100, Neutrophils % (Manual) 66, Band Neutrophils % 9 H, Lymphocytes % (Manual) 15 L, Monocytes % (Manual) 8, Eosinophils % (Manual) 2, Basophils % (Manual) 100 H, Promyelocytes % 100 H, Reactive Lymphocytes 100, Platelet Estimate MKD INC, Plt Morphology Comment LARGE, Hypochromasia 1+, Anisocytosis 2+, Acanthocytes (Spur) 100, Sodium 143, P otassium 3.1 L, Chloride 116 H, Carbon Dioxide 18.0 L, Anion Gap 9, BUN 12, Creatinine 0.81, Estim Creat Clear Calc 43.81, Est GFR (MDRD) Af Amer 87, Est GFR (MDRD) Non-Af 72, BUN/Creatinine Ratio 14.8, Glucose 82, Calcium 8.0 L 07/31/24 05:23: POC Glucose 82 Micro: Microbiology 07/29/24 18:56 Stool Stool Occult Blood (KAJAL) - Final Physical Exam Narrative GENERAL: cooperative HEENT: Atraumatic; normocephalic EYES; Anicteric, Normal Conjunctiva NECK; supple, normal thyroid, RESPIRATORY: Diminished to auscultation CARDIOVASCULAR: Regular S1 S2, GI: soft, normoactive bowel sounds, : No Renal angle tenderness; EXTREMITIES: No edema, no clubbing, MUSCULOSKELETAL: no muscle wasting NEURO: Awake; no lateralizing signs. SKIN: No Rash PSYCH; Flat affect Assessment & Plan Assessment/Plan (1) Acute GI bleeding: PLAN: Plan Patient is an 79-year-old lady admitted with bleeding per rectum 1. Acute GI Bleed w/ resultant Acute Blood Loss Anemia with underlying chronic iron deficiency reported per patient: Patient is being admitted in PCU. Stool guaiac negative. Hemoglobin dropped from 11.4->9.0. Iron profile shows serum iron 31, iron saturation 9.1%. TIBC normal. Ferritin 69 normal. Iron infusion ordered. 07/30: GI consulted. Possible will need colonoscopy. -07/31/2024; Patient underwent EGD the day prior colonoscopy was not able to be performed given poor prep and is scheduled to colonoscopy this afternoon. Patient EGD findings and recommendations as below - Abnormal esophageal motility, suspicious for esophageal spasm. - Large hiatal hernia. - No specimens collected. Recommendations : - [facility] patient to [facility] for ongoing care. - Full liquid diet. - Continue present medications. 2. Anemia ? Secondary to acute blood loss anemia from above, monitoring H&H and transfuse if patient becomes symptomatic or hemoglobin falls below 7 3. Acute Thrombocytosis, Leukocytosis, - Unclear etiology: Admission CBC with WC 42, platelet count 1675 with previous to this 11/25/2022 CBC with WBC 13.4 and platelet count 770 and high normal 360 and 450 in MayJune 2021. Total WBC count 42K, differential shows 19% band neutrophils, ANC 33.6 K, 7% lymphocyte and 8% myelocytes. Peripheral smear smear shows neutrophilia, monocytosis, normochromic red cell morphology. Pathology Collector Dr. 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 PTT normal. ? 07/31/2024; patient seen in consultation by oncology plans for patient to follow-up as 4. Mildly elevated creatinine with baseline CKD stage III -: Admission BUN/creatinine 18/1.1. Slightly elevated. Repeat normal at baseline. Does not meet criteria for STACEY 5. Acute hyperglycemia with no diabetic history - Admission glucose 243, no previous diabetic history, hemoglobin A1c requested, will maintain on Accu-Cheks with insulin sliding scale to be cautious every 6 hours given planned evaluation as noted #1 pending HgbA1c. ? 07/31/2024 hemoglobin A1c was 5.5 not consistent with diabetes 6. DVT prophylaxis ? Bilateral SCDs for now Time spent in the patient's overall evaluation,decision-making process, review of diagnostic data, adjustment of management, discussion with other providers, nursing nursing and ancillary staff involved in patient's care documentation, 52 Minutes Charges/Coding Visit Charges Inpatient E&M: 97015 Subs Hosp L3
[2024-07-31 11:08] LABS: International Normalized Ratio 1.3; Partial Thromboplast Time 38.1 Seconds (24.1-36.2); Prothrombin Time (Protime)PT. 16.5 SECONDS (11.7-14.9)
--- NOTE | 2024-07-31 11:08 | PCM.PRE.AN2 ---
ASA Classification* ASA Classification ASA Classification: 3 and E Assessment & Plan Anesthesia* Anesthesia Assessment Anesthesia Assessment: Discussed sedation and/or anesthesia options, risks, benefits, and alternatives with patient/parents/legal guardian/POA. Questions invited. The patient/parents/legal guardian/POA seems to understand and agrees to proceed with anesthesia plan. Reviewed the physical assessment, medical history, allergy history and patient home medications list prior to surgery/procedure/anesthetic and documented any changes. Performed airway and anesthesia risk assessments. Anesthesia Type Anesthesia Type: MAC History Source History Obtained from:: Patient and Chart Anesthesia Focused Assessment* Temperature: 98.3 F Pulse Rate: 87 Blood Pressure: 119/54 Respiratory Rate: 16 Pulse Ox: 94 Oxygen Delivery Method: Room Air Airway Assessment Mouth opens: 2 cm Mallampati Score: III Teeth Condition: Dentures (Patient full upper and lower dentures.) Neck Range of motion (ROM): Full ROM Focused Labs Anesthesia Preop lab: CBC WBC 23.5 K/mm3 (4.4-11.0) H 07/31/24 04:27 RBC 2.74 M/mm3 (4.2-5.4) L 07/31/24 04:27 Hgb 7.5 g/dL (12.0-15.0) L 07/31/24 04:27 Hct 23.9 % (37-47) L 07/31/24 04:27 Plt Count 950 K/mm3 (150-450) H* 07/31/24 04:27 CHEMISTRY Potassium 3.1 mmol/L (3.5-5.1) L 07/31/24 04:27 Sodium 143 mmol/L (136-145) 07/31/24 04:27 Magnesium 2.3 mg/dL (1.6-2.6) 07/29/24 22:09 Phosphorus 4.2 mg/dL (2.5-4.9) 07/29/24 22:09 BUN 12 mg/dL (7-18) 07/31/24 04:27 Creatinine 0.81 mg/dL (0.55-1.02) 07/31/24 04:27 Glucose 82 mg/dL (74-106) 07/31/24 04:27 POC Glucose 82 mg/dL (74-106) 07/31/24 05:23 COAG PT 16.5 SECONDS (11.7-14.9) H 07/31/24 04:27 Pre-Assessment Diagnosis/Proposed Procedure Planned Operative Procedure(s): Colonoscopy Anesthesia History 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 When Was Last Pacemaker Check QUESTION #4 FULL TEXT: You/Your Family Experience fever (hyperthermia) with Anesthesia Last Oral Intake Last Oral intake: Last Oral Intake NPO since Meds taken in AM with sips of water? Meds patient instructed to take am of surgery Any additional information?: Yes NPO since: 00:00 Meds taken in AM with sips of water?: Yes PONV PONV - shovel operator: PONV - shovel operator Female HX of Motion Sickness HX of N/V After Surgery Non-Smoker Duration of Surgery greater than 60 minutes Number of Risk Factors PONV Score Height & Weight Height & Weight: Anesthesia: Height & Weight Height 5 ft 2 in 07/30/24 11:08 Weight: 58.6 kg 07/31/24 05:19 Body Mass Index (BMI) 23.6 07/31/24 05:19 Respiratory Assessment Respiratory Assessment - shovel operator: Respiratory Tract Infection Hx - shovel operator Hx Respiratory Tract Infection Any additional information?: Yes Hx Respiratory Tract Infection: No STOP Sleep Apnea STOP Sleep Apnea - shovel operator: STOP Sleep Apnea - shovel operator Hx Hypertension Yes 07/31/24 10:40 Hx Sleep Apnea No 07/30/24 17:25 CPAP BIPAP Do you snore loudly (louder No 07/29/24 22:21 than talking or can be heard Do you often feel tired/ No 07/29/24 22:21 fatigued/ sleepy during daytime? Has anyone observed you stop No 07/29/24 22:21 breathing during sleep? STOP Results Negative 07/30/24 17:10 QUESTION #5 FULL TEXT : Do you snore loudly (louder than talking or can be heard through closed doors)? Tobacco Use History Tobacco Use History - shovel operator: Tobacco Use History - shovel operator Tobacco Use Smoking Status Former smoker 07/29/24 22:58 Hx Tobacco Use No 07/29/24 22:21 Years Smoking Packs Smoked per Day Smoking Cessation Date was within the last 15 years Hx Smoking Cessation Date Hx Smoking Cessation Counseling Hematologic Medial History Hematologic Hx - shovel operator: Hematologic Medical Hx - racing secretary and handicapper Hx of Blood Transfusion No 07/29/24 22:21 Hx of Transfusion in last 3 No 07/29/24 22:21 Months Date of Last Transfusion (if within last 3 months) Ever experience any problems No 07/29/24 22:21 with transfusion(s)? Specify any problems Hx of Preganancy in last 3 No 07/29/24 22:21 Months Nurse Filling Out Transfusion RWALKER 07/29/24 22:21 & Questions: Date: 07/29/24 07/29/24 22:21 Time: :07/29/24 22:21 Patient unable to answer at this time (ie. confused, unrespo /Reproduction History /Reproductive History - shovel operator: /Reproductive Hx- shovel operator Hx Now Gestational Age (in weeks): EDC: Hx Hx Para Hx Section SAB Active Medications Active Medications: Current Medications Generic Name Dose Route Start Last Admin Trade Name Freq PRN Reason Stop Dose Admin Acetaminophen 650 mg 07/29/24 22:23 Acetaminophen 325 Mg Tablet PO Q4H PRN PRN Fever, pain 1-04/17 Calamine/Phenol 1 applic 07/30/24 10:00 07/30/24 20:24 Menthol/Lanolin/Calamine/Znox 113 Gm Tube TOPICAL 1 applic 4X/DAY GILMAR Administration Protocol Glucagon 1 mg 07/29/24 22:31 Glucagon 1 Mg/Ml Syringe IM X1 PRN HYPOGLYCEMIA Protocol Hydralazine HCl 10 mg 07/29/24 22:23 Hydralazine 20 Mg/Ml Vial IV Q4H PRN PRN SBP > 160 Protocol Pantoprazole Sodium 40 mg/ 110 mls @ 330 mls/hr 07/29/24 22:35 07/30/24 21:12 Sodium Chloride IV Infused Q12 GILMAR Infusion Dextrose 250 mls @ 0 mls/hr 07/29/24 22:31 Dextrose 10%-Water IV .Q0M PRN HYPOGLYCEMIA Protocol As Directed Insulin Human Lispro 0 unit 07/30/24 00:00 07/31/24 05:23 Insulin Lispro 100 Unit/Ml Insuln.Pen SC Not Given Q6H GILMAR Protocol Melatonin 3 mg 07/29/24 22:31 Melatonin 3 Mg Tablet PO QHS PRN PRN INSOMNIA Ondansetron HCl 4 mg 07/29/24 22:31 Ondansetron 4 Mg/2 Ml Vial IV Q8H PRN PRN NAUSEA/VOMITING Prochlorperazine Edisylate 5 mg 07/29/24 22:31 Prochlorperazine 10 Mg/2 Ml Vial IV Q4H PRN PRN Breakthrough nausea/vomiting Sodium Chloride 10 - 40 ml 07/29/24 22:23 07/30/24 20:24 0.9% Saline Lock 10 Ml Syringe IV 10 ml UD PRN Administration SALINE FLUSH PFSH Medical History Former tobacco use Iron deficiency COVID-19 CKD (chronic kidney disease), stage II Home Medications ?Medication ?Instructions ?Recorded ?Last Taken ?Type ascorbic acid (vitamin C) 1,000 mg 1,000 mg PO DAILY 06/06/21 Unknown History tablet,extended release (Vitamin C ER) cholecalciferol (vitamin D3) 25 25 mcg PO DAILY 06/06/21 Unknown History mcg (1,000 unit) capsule (Vitamin D3) [id number] 0.4 mg-calcium 162 1 tab PO DAILY 06/06/21 Unknown History mg-iron 18 [id number] tablet Allergy/AdvReac Type Severity Reaction Status Date / Time venom-honey bee (bee venom Allergy Unknown Verified 07/29/24 18:10 (honey bee)) Family History Mother Cancer Father No problems noted. Surgical History (Updated 07/31/24 @ 11:[address] Agustin Garrett MD) H/O esophagogastroduodenoscopy Status post left breast lumpectomy Social History household members: none Smoking Status: Former smoker how long ago did patient quit smoking: Quit ~ 20 years prior, smoked 1-3 cig/day since teen off and on. alcohol intake: never substance use type: does not use Review of Systems (Anesthesia) ROS Narrative System reviewed and no additional complaints, except as documented.
--- NOTE | 2024-07-31 11:18 | PN.GI_ITS ---
Subjective Subjective Patient underwent an upper endoscopy yesterday and did not have any abnormalities that were seen. She prep for colonoscopy last night. Objective Data Objective Data Vital Signs: Vital Signs Temp Pulse Resp BP Pulse Ox O2 Del Method 98.3 F 87 16 119/54 L 94 Room Air 07/31/24 05:20 07/31/24 05:20 07/31/24 05:20 07/31/24 05:20 07/31/24 05:20 07/31/24 05:20 Oxygen Delivery Method Room Air Weight: 129 lb 3.054 oz Body Mass Index (BMI) 23.6 Intake & Output: Intake and Output for Last 24 Hours 07/29/24 07/30/24 07/31/24 23:59 23:59 23:59 Intake Total 1111.67 / 1311.67 2963.33 / 5963.33 3000 / 3000 Balance 1111.67 / 1311.67 2963.33 / 5963.33 3000 / 3000 Lab / Micro Data 07/31/24 04:27 07/31/24 04:27 Labs: Laboratory Results - last 24 hr 07/29/24 18:22: Diff Path Review Reviewed 07/30/24 06:17: Diff Path Review Reviewed 07/30/24 22:58: POC Glucose 107 H 07/31/24 04:27: WBC 23.5 H, RBC 2.74 L, Hgb 7.5 L, Hct 23.9 L, MCV 87.2, MCH 27.4, MCHC 31.4 L, RDW Std Deviation 65.0 H, RDW Coeff of Venkata 21.0 H, Plt Count 950 H*, MPV 10.3, Neut % (Auto) Not Reportable, Absolute Neuts (auto) 17.6 H, Absolute Lymphs (auto) 3.50, Total Counted 100, Neutrophils % (Manual) 66, Band Neutrophils % 9 H, Lymphocytes % (Manual) 15 L, Monocytes % (Manual) 8, Eosinophils % (Manual) 2, Basophils % (Manual) 100 H, Promyelocytes % 100 H, Reactive Lymphocytes 100, Platelet Estimate MKD INC, Plt Morphology Comment LARGE, Hypochromasia 1+, Anisocytosis 2+, Acanthocytes (Spur) 100, PT 16.5 H, INR 1.3, APTT 38.1 H, Sodium 143, Potassium 3.1 L, Chloride 116 H, Carbon Dioxide 18.0 L, Anion Gap 9, BUN 12, Creatinine 0.81, Estim Creat Clear Calc 43.81, Est GFR (MDRD) Af Amer 87, Est GFR (MDRD) Non-Af 72, BUN/Creatinine Ratio 14.8, Glucose 82, Calcium 8.0 L 07/31/24 05:23: POC Glucose 82 Micro: Microbiology 07/29/24 18:56 Stool Stool Occult Blood (KAJAL) - Final Physical Exam Narrative GENERAL: cooperative HEENT: Atraumatic; normocephalic EYES; Anicteric, Normal Conjunctiva NECK; supple, normal thyroid, RESPIRATORY: Diminished to auscultation CARDIOVASCULAR: Regular S1 S2, GI: soft, normoactive bowel sounds, : No Renal angle tenderness; EXTREMITIES: No edema, no clubbing, MUSCULOSKELETAL: no muscle wasting NEURO: Awake; no lateralizing signs. SKIN: No Rash PSYCH; Flat affect Assessment & Plan Assessment/Plan (1) Acute GI bleeding: PLAN: Plan The patient is an 79 y/o F presents to the [facility] ED on 07/29/24 with history of persistent intermittent large blood clots being passed while she is having bowel movements with stools intermittently dark Acute GI Bleed w/ resultant Acute Blood Loss Anemia with underlying chronic iron deficiency reported per patient: Hgb dropped in the ED 11.4->9.0. Will perform an upper endoscopy to evaluate her upper GI tract. If this is negative then she may need a colonoscopy. Acute Thrombocytosis, Leukocytosis, Unclear etiology: Hematology consulted 07/30/2024-we will perform an upper endoscopy today. No etiology of bleeding seen on upper endoscopy. Will prep for colonoscopy tomorrow. 07/31/2024-all questions answered from patient's daughter and the patient. Further recommendations after colonoscopy. Charges/Coding Visit Charges Inpatient E&M: 45932 Subs Hosp L2
--- NOTE | 2024-07-31 11:58 | PCM.POST.ANE ---
Anesthesia: Postop Eval I Current Vital Signs Temperature: 97.4 F Pulse Rate: 78 Blood Pressure: 112/64 Respiratory Rate: 16 Pulse Ox: 97 Oxygen Delivery Method: Room Air Assessment Airway patent: Yes Spontaneous unlabored respirations: Yes Mental status: Awake and Calm nausea: No Vomiting: No Anesthesia Complication: No Fluid Hydration Crystalloid volume administer (ml): 40 Total IV fluid infused: 40 Progress Note Anesthesia document: Postop Eval 1 completed: Yes
--- NOTE | 2024-07-31 11:59 | OP.CCLET_ITS ---
07/31/2024 An Law MD [address] [place] [address] Re : Colonoscopy procedure for Yissel Cantuiser Dear Dr. Law This procedure was performed on July. My impressions and recommendations are as follows: Impressions : - Non-bleeding external and internal hemorrhoids. - Diverticulosis in the recto-sigmoid colon, in the sigmoid colon and in the descending colon. - No specimens collected. Recommendations : - [facility]. - Resume regular diet. - Continue present medications. - No repeat colonoscopy due to age. My findings are described in the full procedure note, which is enclosed. If I can be of further assistance, please feel free to contact me at . Sincerely, Jaden Paul, 07/31/2024 11:59:04 AM This report has been signed electronically.
--- NOTE | 2024-07-31 11:59 | OP.COLON_ITS ---
Patient Name: Yissel Villa Procedure Date: 07/31/2024 11:09 AM Date of : 1945 Age: 79 Procedure: Colonoscopy Indications: Hematochezia Providers: Jaden Paul DO Medicines: Monitored Anesthesia Care Patient Profile: This is an 79 year old female. Refer to note in patient chart for documentation of history and physical. Last Colonoscopy: several years ago. Complications: No immediate complications. Procedure: Pre-Anesthesia Assessment: - Prior to the procedure, a History and Physical was performed, and patient medications and allergies were reviewed. The patient is competent. The risks and benefits of the procedure and the sedation options and risks were discussed with the patient. All questions were answered and informed consent was obtained. Patient identification and proposed procedure were verified by the physician in the pre-procedure area. Mental Status Examination: alert and oriented. Airway Examination: normal oropharyngeal airway and neck mobility. Respiratory Examination: clear to auscultation. CV Examination: normal. Prophylactic Antibiotics: The patient does not require prophylactic antibiotics. Prior Anticoagulants: The patient has taken no anticoagulant or antiplatelet agents. ASA Grade Assessment: II - A patient with mild systemic disease. After reviewing the risks and benefits, the patient was deemed in satisfactory condition to undergo the procedure. The anesthesia plan was to use monitored anesthesia care (MAC). Immediately prior to administration of medications, the patient was re-assessed for adequacy to receive sedatives. The heart rate, respiratory rate, oxygen saturations, blood pressure, adequacy of pulmonary ventilation, and response to care were monitored throughout the procedure. The physical status of the patient was re-assessed after the procedure. After I obtained informed consent, the scope was passed under direct vision. Throughout the procedure, the patient's blood pressure, pulse, and oxygen saturations were monitored continuously. The colonoscope was introduced through the anus and advanced to the terminal ileum. The colonoscopy was performed without difficulty. The patient tolerated the procedure well. The quality of the bowel preparation was adequate. The terminal ileum, ileocecal valve, appendiceal orifice, and rectum were photographed. Scope In: 11:32:04 AM Scope Withdrawal Time 0 hours 11 minutes 2 seconds Scope Out: 11:50:14 AM Total Procedure Duration Time 0 hours 18 minutes 10 seconds Findings: The perianal and digital rectal examinations were normal. Pertinent negatives include normal sphincter tone. Non-bleeding external and internal hemorrhoids were found during retroflexion. The hemorrhoids were moderate, large and Grade III (internal hemorrhoids that prolapse but require manual reduction). Multiple small and large-mouthed diverticula were found in the recto-sigmoid colon, sigmoid colon and descending colon. Impression: - Non-bleeding external and internal hemorrhoids. - Diverticulosis in the recto-sigmoid colon, in the sigmoid colon and in the descending colon. - No specimens collected. Recommendation: - [facility]. - Resume regular diet. - Continue present medications. - No repeat colonoscopy due to age. Procedure Code(s): --- Professional --- 08602, Colonoscopy, flexible; diagnostic, including collection of specimen(s) by brushing or washing, when performed (separate procedure) CPT copyright 2021 [employer]. All rights reserved. The codes documented in this report are preliminary and upon land survey technician review may be revised to meet current compliance requirements. Jaden Paul DO 07/31/2024 11:59:04 AM This report has been signed electronically. Number of Addenda: 0 Note Initiated On: 07/31/2024 11:09 AM
[2024-07-31] MEDS: Menthol/Lanolin/Calamine/Znox 113 GM Tube 1 APPLIC TOPICAL ×4 (13:21→21:55)
[2024-07-31] MEDS: 0.9% Saline Lock 10 ML Syringe IV ×2 (13:25→21:56)
[2024-07-31] MEDS: Pantoprazole Sodium 40 MG in 0.9% Normal Saline (100mL MB+) 100 ML 330 MG IV ×2 (13:26→21:56)
[2024-07-31 13:41] LABS: Bedside Glucose 119 mg/dL (74-106)
--- NOTE | 2024-07-31 16:17 | PCM.POSTANE2 ---
Anesthesia Postop Eval I Sum Postop Eval Completion status Anesthesia document: Postop Eval 1 completed: Yes Anesthesia Postop Eval I Summary Anesthesia Postop Eval I Summary: Anesthesia Postop Eval I: Assessment Summary Airway patent Yes 07/31/24 11:58 [email or web address] Spontaneous unlabored Yes 07/31/24 11:58 [email or web address] respirations Mental status Awake,Calm 07/31/24 11:58 [email or web address] nausea No 07/31/24 11:58 [email or web address] Vomiting No 07/31/24 11:58 [email or web address] Anesthesia Postop Eval I: Fluid Summary Crystalloid volume administer 40 07/31/24 11:58 [email or web address] (ml) Colloids volume administered ( ml) Blood Product volume administered (ml) Total IV fluid infused 40 07/31/24 11:58 [email or web address] Anesthesia Postop Eval I: Summary Notes Anesthesia Complication No 07/31/24 11:58 [email or web address] Anesthesia Complication Comment: Post-operative progress note Anesthesia: Postop Eval II Evaluation Mental status: Awake and Calm Pain Level: 0 nausea: No Vomiting: No Complications Anesthesia Complication: No
[2024-07-31 18:26] LABS: Bedside Glucose 100 mg/dL (74-106)
[2024-08-01] VITALS (11 sets, daily range): BP systolic 116–136; BP diastolic 60–71; PULSE 82–99; RESP 16–20; TEMP 36.4–37.3; O2SAT 83–99; BMI 23.6
[2024-08-01 00:01] LABS: Bedside Glucose 88 mg/dL (74-106)
[2024-08-01 05:50] LABS: Hematocrit 23.6 % (37-47); Hemoglobin 7.2 g/dL (12.0-15.0); Mean Corp Hgb Conc 30.5 g/dL (32-36); Mean Corpuscular Hgb 26.2 pg (27.0-32.0); Mean Corpuscular Volume 85.8 fL (81-99); POSITIVE COUNT YES; POSITIVE DIFFERENTIAL YES; POSITIVE MORPHOLOGY YES; RBC Distribution Width CV 20.1 % (11.6-14.6); RBC Distribution Width SD 61.6 fl (35.1-43.9); Red Blood Count 2.75 M/mm3 (4.2-5.4); White Blood Count 24.5 K/mm3 (4.4-11.0)
[2024-08-01 06:06] LABS: Differential Indicated MANUAL DIFF; Platelet Count 838 K/mm3 (150-450)
[2024-08-01 06:29] LABS: Phosphorus 2.6 mg/dL (2.5-4.9)
[2024-08-01 06:32] LABS: Anion Gap 5 (5-15); BUN 13 mg/dL (7-18); BUN/Creat Ratio 13.4 RATIO (10-20); Calcium,Total 8.1 mg/dL (8.5-10.1); Chloride 114 mmol/L (98-107); Creatinine, Serum 0.97 mg/dL (0.55-1.02); EST Glomerular Filtration Rate 59 mL/min (>60); Est Glom Filt Rate - Afr Amer 71 mL/min (>60); Estimated Creatinine Clearance 36.59 ml/min; Glucose 102 mg/dL (74-106); Potassium 3.6 mmol/L (3.5-5.1); Sodium Level 142 mmol/L (136-145)
[2024-08-01 07:12] LABS: Bedside Glucose 92 mg/dL (74-106)
[2024-08-01 07:18] LABS: Atypical Lymphocyte 1+ %; Eosinophil 4 % (0-5); Lymphocyte 13 % (19-41); Monocyte 3 % (0-10); Myelocyte 2 % (0-0); Neutrophil-Band 6 % (0-5); Neutrophil-Segmented 72 % (47-70); Reactive Lymphocyte 1+; Total Cells Counted 100 (MANUAL DIFF)
[2024-08-01 07:19] LABS: Anisocytosis 1+; Platelet Estimate MKD INC (ADEQ)
[2024-08-01 07:20] LABS: Absolute Lymphocyte Count 3.19 X10^3/uL (0.83-4.51); Absolute Neutrophil Count 19.1 X10^3/uL (2.0-7.7)
--- NOTE | 2024-08-01 07:40 | PN.HOSP_ITS ---
Reason for Visit Reason for Visit: Diagnoses Bandemia (07/29/24) Thrombocytosis, unspecified (07/29/24) Gastrointestinal hemorrhage, unspecified (07/29/24) Subjective Subjective Patient seen underwent colonoscopy the day prior findings and recommendations as documented below hemoglobin down to 7.2 patient started on iron supplementation Objective Data Objective Data Vital Signs: Vital Signs Temp Pulse Resp BP Pulse Ox O2 Del Method O2 Flow Rate 98.8 F 82 16 116/60 97 Nasal Cannula 2 08/01/24 06:17 08/01/24 06:17 08/01/24 06:17 08/01/24 06:17 08/01/24 06:17 08/01/24 06:17 08/01/24 06:17 Oxygen Flow Rate (L/min) 2 Oxygen Delivery Method Nasal Cannula Weight: 58.6 kg Body Mass Index (BMI) 23.6 Intake & Output: Intake and Output for Last 24 Hours 07/30/24 07/31/24 08/01/24 23:59 23:59 23:59 Intake Total 2963.33 / 5963.33 3220 / 3220 Balance 2963.33 / 5963.33 3220 / 3220 Lab / Micro Data 08/01/24 05:07 08/01/24 05:07 Labs: Laboratory Results - last 24 hr 07/29/24 19:12: Crossmatch See Detail 07/31/24 04:27: Absolute Neuts (auto) 17.6 H, Absolute Lymphs (auto) 3.50, Total Counted 100, Neutrophils % (Manual) 66, Band Neutrophils % 9 H, Lymphocytes % (Manual) 15 L, Monocytes % (Manual) 8, Eosinophils % (Manual) 2, Basophils % (Manual) 100 H, Promyelocytes % 100 H, Diff Path Review May foll, Reactive Lymphocytes 100, Platelet Estimate MKD INC, Plt Morphology Comment LARGE, Hypochromasia 1+, Anisocytosis 2+, Acanthocytes (Spur) 100, PT 16.5 H, INR 1.3, APTT 38.1 H 07/31/24 13:19: POC Glucose 119 H 07/31/24 18:09: POC Glucose 100 07/31/24 23:38: POC Glucose 88 08/01/24 05:07: WBC 24.5 H, RBC 2.75 L, Hgb 7.2 L, Hct 23.6 L, MCV 85.8, MCH 26.2 L, MCHC 30.5 L, RDW Std Deviation 61.6 H, RDW Coeff of Venkata 20.1 H, Plt Count 838 H*, MPV 10.0, Neut % (Auto) Not Reportable, Absolute Neuts (auto) 19.1 H, Absolute Lymphs (auto) 3.19, Total Counted 100, Neutrophils % (Manual) 72 H, Band Neutrophils % 6 H, Lymphocytes % (Manual) 13 L, Monocytes % (Manual) 3, Eosinophils % (Manual) 4, Myelocytes % 2 H, Diff Path Review May foll, Atypical Lymphocytes 1+, Reactive Lymphocytes 1+, Platelet Estimate MKD INC, Anisocytosis 1+, Sodium 142, Potassium 3.6, Chloride 114 H, Carbon Dioxide 22.0, Anion Gap 5, BUN 13, Creatinine 0.97, Estim Creat Clear Calc 36.59, Est GFR (MDRD) Af Amer 71, Est GFR (MDRD) Non-Af 59 L, BUN/Creatinine Ratio 13.4, Glucose 102, Calcium 8.1 L, Phosphorus 2.6, Magnesium 2.0 08/01/24 06:13: POC Glucose 92 Micro: Microbiology 07/29/24 18:56 Stool Stool Occult Blood (KAJAL) - Final Physical Exam Narrative GENERAL: cooperative HEENT: Atraumatic; normocephalic EYES; Anicteric, Normal Conjunctiva NECK; supple, normal thyroid, RESPIRATORY: Diminished to auscultation CARDIOVASCULAR: Regular S1 S2, GI: soft, normoactive bowel sounds, : No Renal angle tenderness; EXTREMITIES: No edema, no clubbing, MUSCULOSKELETAL: no muscle wasting NEURO: Awake; no lateralizing signs. SKIN: No Rash PSYCH; Flat affect Assessment & Plan Assessment/Plan (1) Acute GI bleeding: PLAN: Plan Patient is an 79-year-old lady admitted with bleeding per rectum 1. Acute GI Bleed w/ resultant Acute Blood Loss Anemia with underlying chronic iron deficiency reported per patient: Patient is being admitted in PCU. Stool guaiac negative. Hemoglobin dropped from 11.4->9.0. Iron profile shows serum iron 31, iron saturation 9.1%. TIBC normal. Ferritin 69 normal. Iron infusion ordered. 07/30: GI consulted. Possible will need colonoscopy. -07/31/2024; Patient underwent EGD the day prior colonoscopy was not able to be performed given poor prep and is scheduled to colonoscopy this afternoon. Patient EGD findings and recommendations as below - Abnormal esophageal motility, suspicious for esophageal spasm. - Large hiatal hernia. - No specimens collected. Recommendations : - [facility]. - Full liquid diet. - Continue present medications. Impressions : - Non-bleeding external and internal hemorrhoids. - Diverticulosis in the recto-sigmoid colon, in the sigmoid colon and in the descending colon. - No specimens collected. Recommendations : - [facility]. - Resume regular diet. - Continue present medications. - No repeat colonoscopy due to age. 2. Anemia ? Secondary to acute blood loss anemia from above, monitoring H&H and transfuse if patient becomes symptomatic or hemoglobin falls below 7 ? 07/28/2024; patient hemoglobin down to 7.2 did start patient on iron supplementation 3. Acute Thrombocytosis, Leukocytosis, - Unclear etiology: Admission CBC with WC 42, platelet count 1675 with previous to this 11/25/2022 CBC with WBC 13.4 and platelet count 770 and high normal 360 and 450 in MayJune 2021. Total WBC count 42K, differential shows 19% band neutrophils, ANC 33.6 K, 7% lymphocyte and 8% myelocytes. Peripheral smear smear shows neutrophilia, monocytosis, normochromic red cell morphology. 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 PTT normal. ? 07/31/2024; patient seen in consultation by oncology plans for patient to follow-up as 4. Mildly elevated creatinine with baseline CKD stage III -: Admission BUN/creatinine 18/1.1. Slightly elevated. Repeat normal at baseline. Does not meet criteria for STACEY 5. Acute hyperglycemia with no diabetic history - Admission glucose 243, no previous diabetic history, hemoglobin A1c requested, will maintain on Accu-Cheks with insulin sliding scale to be cautious every 6 hours given planned evaluation as noted #1 pending HgbA1c. ? 07/31/2024 hemoglobin A1c was 5.5 not consistent with diabetes 6. DVT prophylaxis ? Bilateral SCDs for now Time spent in the patient's overall evaluation,decision-making process, review of diagnostic data, adjustment of management, discussion with other providers, nursing nursing and ancillary staff involved in patient's care documentation, 36 Minutes
[2024-08-01] MEDS: Menthol/Lanolin/Calamine/Znox 113 GM Tube 1 APPLIC TOPICAL ×3 (09:04→17:37)
[2024-08-01] MEDS: Pantoprazole Sodium 40 MG in 0.9% Normal Saline (100mL MB+) 100 ML 330 MG IV ×2 (09:05→20:06)
[2024-08-01] MEDS: 0.9% Saline Lock 10 ML Syringe IV ×3 (09:06→20:07)
--- NOTE | 2024-08-01 10:09 | PCM.DC.SUM ---
Providers Date of Admission: 07/29/24 Date of Discharge: 08/01/24 Primary Care Physician: Dr. An Law MD Consultations 07/29/24 22:23 Consult: Gastroenterology Routine Consulting Provider: [facility] Reason for Consult: GI bleed, ABLA EMERGENT Consult: No Notified: Yes Date Notified: 07/29/24 Time Notified: 22:23 Method of Notification: ED Physician Initiated 07/30/24 08:00 Consult: Oncology/Hematology Routine Consulting [facility] Reason for Consult: Thrombocytosis, 1675, leukocytosis, Hematological malignancy? EMERGENT Consult: No Notified: Yes Date Notified: 07/30/24 Time Notified: 08:00 Method of Notification: Text Reason For Visit: GI BLEED, ABLA Diagnosis Discharge Diagnosis (1) Acute GI bleeding: Status: Acute Code(s): K92.2 - Gastrointestinal hemorrhage, unspecified Plan Patient is an 79-year-old lady admitted with bleeding per rectum 1. Acute GI Bleed w/ resultant Acute Blood Loss Anemia with underlying chronic iron deficiency reported per patient: Patient is being admitted in PCU. Stool guaiac negative. Hemoglobin dropped from 11.4->9.0. Iron profile shows serum iron 31, iron saturation 9.1%. TIBC normal. Ferritin 69 normal. Iron infusion ordered. 07/30: GI consulted. Possible will need colonoscopy. -07/31/2024; Patient underwent EGD the day prior colonoscopy was not able to be performed given poor prep and is scheduled to colonoscopy this afternoon. Patient EGD findings and recommendations as below - Abnormal esophageal motility, suspicious for esophageal spasm. - Large hiatal hernia. - No specimens collected. Recommendations : - [facility]. - Full liquid diet. - Continue present medications. Impressions : - Non-bleeding external and internal hemorrhoids. - Diverticulosis in the recto-sigmoid colon, in the sigmoid colon and in the descending colon. - No specimens collected. Recommendations : - [facility]. - Resume regular diet. - Continue present medications. - No repeat colonoscopy due to age. 2. Anemia ? Secondary to acute blood loss anemia from above, monitoring H&H and transfuse if patient becomes symptomatic or hemoglobin falls below 7 ? 07/28/2024; patient hemoglobin down to 7.2 did start patient on iron supplementation 3. Acute Thrombocytosis, Leukocytosis, - Unclear etiology: Admission CBC with WC 42, platelet count 1675 with previous to this 11/25/2022 CBC with WBC 13.4 and platelet count 770 and high normal 360 and 450 in MayJune 2021. Total WBC count 42K, differential shows 19% band neutrophils, ANC 33.6 K, 7% lymphocyte and 8% myelocytes. Peripheral smear smear shows neutrophilia, monocytosis, normochromic red cell morphology. [employer] Dr. 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 PTT normal. ? 07/31/2024; patient seen in consultation by oncology plans for patient to follow-up as 4. Mildly elevated creatinine with baseline CKD stage III -: Admission BUN/creatinine 18/.1. Slightly elevated. Repeat normal at baseline. Does not meet criteria for STACEY 5. Acute hyperglycemia with no diabetic history - Admission glucose 243, no previous diabetic history, hemoglobin A1c requested, will maintain on Accu-Cheks with insulin sliding scale to be cautious every 6 hours given planned evaluation as noted #1 pending HgbA1c. ? 07/31/2024 hemoglobin A1c was 5.5 not consistent with diabetes 6. DVT prophylaxis ? Bilateral SCDs for now Time spent in the patient's overall evaluation,decision-making process, review of diagnostic data, adjustment of management, discussion with other providers, nursing nursing and ancillary staff involved in patient's care documentation, 36 Minutes Medications at Discharge Home Medications ascorbic acid (vitamin C) 1,000 mg tablet,extended release (Vitamin C ER) 1,000 mg PO DAILY 06/06/21 cholecalciferol (vitamin D3) 25 mcg (1,000 unit) capsule (Vitamin D3) 25 mcg PO DAILY 06/06/21 [id number] 0.4 mg-calcium 162 mg-iron 18 rc-onueiqd-vekegb tablet 1 tab PO DAILY 06/06/21 pantoprazole 40 mg tablet,delayed release (Protonix) 40 mg PO DAILY #90 tabs 08/01/24 polysaccharide iron complex 150 mg iron capsule (Ferrex) 150 mg PO DAILY #90 caps 08/01/24 Physical Exam Narrative GENERAL: cooperative HEENT: Atraumatic; normocephalic EYES; Anicteric, Normal Conjunctiva NECK; supple, normal thyroid, RESPIRATORY: Diminished to auscultation CARDIOVASCULAR: Regular S1 S2, GI: soft, normoactive bowel sounds, : No Renal angle tenderness; EXTREMITIES: No edema, no clubbing, MUSCULOSKELETAL: no muscle wasting NEURO: Awake; no lateralizing signs. SKIN: No Rash PSYCH; Flat affect Weight / BMI Weight Weight: 58.6 kg Body Mass Index (BMI) 23.6 ABG / Lab / Microbiology Data 08/01/24 05:07 08/01/24 05:07 Laboratory: Laboratory Results - last 24 hr 07/29/24 19:12: Crossmatch See Detail 07/31/24 04:27: Diff Path Review November judd, PT 16.5 H, INR 1.3, APTT 38.1 H 07/31/24 13:19: POC Glucose 119 H 07/31/24 18:09: POC Glucose 100 07/31/24 23:38: POC Glucose 88 08/01/24 05:07: WBC 24.5 H, RBC 2.75 L, Hgb 7.2 L, Hct 23.6 L, MCV 85.8, MCH 26.2 L, MCHC 30.5 L, RDW Std Deviation 61.6 H, RDW Coeff of Venkata 20.1 H, Plt Count 838 H*, MPV 10.0, Neut % (Auto) Not Reportable, Absolute Neuts (auto) 19.1 H, Absolute Lymphs (auto) 3.19, Total Counted 100, Neutrophils % (Manual) 72 H, Band Neutrophils % 6 H, Lymphocytes % (Manual) 13 L, Monocytes % (Manual) 3, Eosinophils % (Manual) 4, Myelocytes % 2 H, Diff Path Review May judd, Atypical Lymphocytes 1+, Reactive Lymphocytes 1+, Platelet Estimate MKD INC, Anisocytosis 1+, Sodium 142, Potassium 3.6, Chloride 114 H, Carbon Dioxide 22.0, Anion Gap 5, BUN 13, Creatinine 0.97, Estim Creat Clear Calc 36.59, Est GFR (MDRD) Af Amer 71, Est GFR (MDRD) Non-Af 59 L, BUN/Creatinine Ratio 13.4, Glucose 102, Calcium 8.1 L, Phosphorus 2.6, Magnesium 2.0 08/01/24 06:13: POC Glucose 92 Microbiology: Microbiology 07/29/24 18:56 Stool Stool Occult Blood (KAJAL) - Final D/C Instructions Discharge Diet: No restrictions Discharge Activity: Return to Normal Activity Call your doctor if you observe: Fever of 101 or Higher, Shortness of breath, Fainting spells and Chest pain DC O2, CPAP, BIPAP Needs Home O2 Discharge instructions: No Meaningful Use Info Meaningful Use Meaningful Use Diagnoses (Choose all that apply): None applicable Ischemic Stroke Statin Dosing Therapy Reference: STATIN DOSE THERAPY REFERENCE: * Patients > 75 years receive moderate or high dose statin therapy. * Patients 75 years or YOUNGER should receive HIGH intensity statin dose unless contraindicated. You will be required to document reason for non-treatment if statin daily dose does not meet guidelines. HIGH DOSE STATIN THERAPY DAILY Atorvastatin > than or = to 40 mg Rosuvastatin > than or = to 20 mg Amlodipine + Atorvastatin > than or = to 2.5/40 mg Ezetimibe + Simvastatin 10/80 mg Simvastatin 80mg Discharge Plan Admission Admit Date/Time: 07/29/24 21:41 Attending Provider: Milton Allen Primary Care Provider: An Law Consulting Providers: Jaylyn Garrido; Milton Cruz; Tez Hua; Delroy Low; Radha Lynn; Miki Casanova; Jorge Horton; Blake Schmitt; Jake Wolfe; Cora Shaffer NP; Stoney Webster Discharge Orders/Prescriptions Prescriptions: New polysaccharide iron complex [Ferrex 150] 150 mg iron Capsule 150 mg PO DAILY Qty: 90 0RF pantoprazole [Protonix] 40 mg tablet,delayed release (DR/EC) 40 mg PO DAILY Qty: 90 0RF Continued Vitamin C 1,000 mg Tablet Extended Release 1,000 mg PO DAILY cholecalciferol (vitamin D3) [Vitamin D3] 25 mcg (1,000 unit) Capsule 25 mcg PO DAILY [id number]-QZ-Di-Ay-jiqwqyy-lutein 0.4-162-18 mg Tablet 1 tab PO DAILY Referrals / Follow Up: Tez Hua MD [Med Staff - Active Staff] - In 1 Week An Law MD [Primary Care Provider] - Disposition Disposition (needs filled in before D/C Order can be placed): Home, Self Care Charges/Coding Visit Charges Inpatient E&M: 53974 Disch Hosp >30min
[2024-08-01] MEDS: Acetaminophen 325 MG Tablet 650 MG PO ×2 (11:36→16:13)
[2024-08-01] MEDS: Iron Polysaccharide Complex 150 MG CAPSULE PO (13:12)
--- NOTE | 2024-08-01 13:40 | PHA.DC_ITS ---
Pharmacy [facility] has performed discharge medication reconciliation and counseling for this patient. 1. PANTOPRAZOLE 40MG PO DAILY 2. FERREX 150MG PO DAILYCM The patient's discharge medication list was reviewed for discrepancies and discrepancies were resolved. The patient was counseled on the following discharge medications and changes in medications for homegoing were reviewed. The Reason for Use, instructions for use, and potential side effects were reviewed for all new medications. The patient's questions regarding all of their medications were answered. The patient was able to verbally demonstrate an understanding of their discharge medications. Medications at Discharge Home Medications ascorbic acid (vitamin C) 1,000 mg tablet,extended release (Vitamin C ER) 1,000 mg PO DAILY 06/06/21 cholecalciferol (vitamin D3) 25 mcg (1,000 unit) capsule (Vitamin D3) 25 mcg PO DAILY 06/06/21 jxiukzxp-grh-MB 0.4 mg-calcium 162 mg-iron 18 yi-khybhwp-igwemw tablet 1 tab PO DAILY 06/06/21 pantoprazole 40 mg tablet,delayed release (Protonix) 40 mg PO DAILY #90 tabs 08/01/24 polysaccharide iron complex 150 mg iron capsule (Ferrex) 150 mg PO DAILY #90 caps 08/01/24
[2024-08-01 14:29] LABS: Pathologist Review Reviewed
--- NOTE | 2024-08-01 14:40 | RAD_ITS ---
STUDY: X-RAY CHEST REASON FOR EXAM: Female, 79 years old. Increased oxygen demands TECHNIQUE: Single AP portable view of the chest. COMPARISON: Comparison is made with prior study November 29, 2022. FINDINGS: EKG electrodes are seen. Mild degree of vascular congestion. There is no demonstrated pleural abnormality. Normal size heart. Normal mediastinum and dario. Normal visualized pulmonary arteries. There is atherosclerotic calcification of the aortic arch with tortuosity. There are degenerative changes of the visualized thoracic spine. Normal visualized ribs, clavicles, and shoulders. There is a large hiatal hernia. RAD/Chest 1 View (Portable) IMPRESSION: Mild degree of vascular congestion. Large hiatal hernia. Electronically Signed: Rolan Rashid MD at 15:06 EST ,
[2024-08-01 14:59] LABS: Lymphocyte 14 % (19-41); Metamyelocyte 2 % (0-1); Myelocyte 1 % (0-0); Neutrophil-Band 0 % (0-5); Neutrophil-Segmented 76 % (47-70); Promyelocyte 0 % (0-0)
[2024-08-01 15:00] LABS: Basophil 0 % (0-1); Eosinophil 1 % (0-5); Monocyte 6 % (0-10)
[2024-08-01 15:02] LABS: Absolute Neutrophil Count 17.9 X10^3/uL (2.0-7.7)
[2024-08-01] MEDS: Furosemide 40 MG/4 ML Vial IV (15:55)
--- NOTE | 2024-08-01 16:22 | CASEMGMT ---
Patient discharge has been canceled. Patient is requiring oxygen at 2lpm at rest and 8+lpm with ambulation. Patient is not on home oxygen at baseline. Patient ambulated hallway stand by assist with therapy. RN CM in to discuss needs at discharge and possible home oxygen at discharge. RN CM reviewed DME agencies with patient, prefers [employer]. Patient inquired about home delivered meals, RN provided information. CM to follow up with patient tomorrow regarding additional needs at discharge. Green sheet placed on chart for home oxygen.
[2024-08-01 16:34] LABS: BNP,B-Type NATRIURETIC PEPTIDE 118.1 pg/mL (0-100)
--- NOTE | 2024-08-01 17:31 | EX.PCM.PN.GI ---
Subjective Subjective Patient underwent colonoscopy yesterday. She is not have any more signs of bleeding at this time. She is tolerating a diet. Objective Data Objective Data Vital Signs: Vital Signs Temp Pulse Resp BP Pulse Ox O2 Del Method O2 Flow Rate 98.3 F 98 18 136/67 H 94 Nasal Cannula 2 08/01/24 15:59 08/01/24 15:59 08/01/24 15:59 08/01/24 15:59 08/01/24 16:25 08/01/24 15:59 08/01/24 16:25 Oxygen Flow Rate (L/min) 2 Oxygen Delivery Method Nasal Cannula Weight: 129 lb 3.054 oz Body Mass Index (BMI) 23.6 Intake & Output: Intake and Output for Last 24 Hours 07/30/24 07/31/24 08/01/24 23:59 23:59 23:59 Intake Total 2963.33 / 5963.33 3220 / 3220 710 / 710 Balance 2963.33 / 5963.33 3220 / 3220 710 / 710 Lab / Micro Data 08/01/24 05:07 08/01/24 05:07 Labs: Laboratory Results - last 24 hr 07/29/24 19:12: Crossmatch See Detail 07/31/24 04:27: Absolute Neuts (auto) 17.9 H, Absolute Lymphs (auto) 3.30, Neutrophils % (Manual) 76 H, Band Neutrophils % 0, Lymphocytes % (Manual) 14 L, Monocytes % (Manual) 6, Eosinophils % (Manual) 1, Basophils % (Manual) 0, Metamyelocytes % 2 H, Myelocytes % 1 H, Promyelocytes % 0, Reactive Lymphocytes SHEEP FARM WORKER, Acanthocytes (Spur) SHEEP FARM WORKER 07/31/24 18:09: POC Glucose 100 07/31/24 23:38: POC Glucose 88 08/01/24 05:07: WBC 24.5 H, RBC 2.75 L, Hgb 7.2 L, Hct 23.6 L, MCV 85.8, MCH 26.2 L, MCHC 30.5 L, RDW Std Deviation 61.6 H, RDW Coeff of Venkata 20.1 H, Plt Count 838 H*, MPV 10.0, Neut % (Auto) Not Reportable, Absolute Neuts (auto) 19.1 H, Absolute Lymphs (auto) 3.19, Total Counted 100, Neutrophils % (Manual) 72 H, Band Neutrophils % 6 H, Lymphocytes % (Manual) 13 L, Monocytes % (Manual) 3, Eosinophils % (Manual) 4, Myelocytes % 2 H, Diff Path Review Reviewed, Atypical Lymphocytes 1+, Reactive Lymphocytes 1+, Platelet Estimate MKD INC, Anisocytosis 1+, Sodium 142, Potassium 3.6, Chloride 114 H, Carbon Dioxide 22.0, Anion Gap 5, BUN 13, Creatinine 0.97, Estim Creat Clear Calc 36.59, Est GFR (MDRD) Af Amer 71, Est GFR (MDRD) Non-Af 59 L, BUN/Creatinine Ratio 13.4, Glucose 102, Calcium 8.1 L, Phosphorus 2.6, Magnesium 2.0 08/01/24 06:13: POC Glucose 92 08/01/24 15:48: B-Natriuretic Peptide 118.1 H Micro: Microbiology 07/29/24 18:56 Stool Stool Occult Blood (KAJAL) - Final Radiography Diagnostic Testing: Radiology Impression Chest X-Ray 08/01/24 14:40 IMPRESSION: Mild degree of vascular congestion. Large hiatal hernia. Electronically Signed: Rolan Rashid MD at 15:06 EST , Physical Exam Narrative GENERAL: cooperative HEENT: Atraumatic; normocephalic EYES; Anicteric, Normal Conjunctiva NECK; supple, normal thyroid, RESPIRATORY: Diminished to auscultation CARDIOVASCULAR: Regular S1 S2, GI: soft, normoactive bowel sounds, : No Renal angle tenderness; EXTREMITIES: No edema, no clubbing, MUSCULOSKELETAL: no muscle wasting NEURO: Awake; no lateralizing signs. SKIN: No Rash PSYCH; Flat affect Assessment & Plan Assessment/Plan (1) Acute GI bleeding: PLAN: Plan The patient is an 79 y/o F presents to the [facility] ED on 07/29/24 with history of persistent intermittent large blood clots being passed while she is having bowel movements with stools intermittently dark Acute GI Bleed w/ resultant Acute Blood Loss Anemia with underlying chronic iron deficiency reported per patient: Hgb dropped in the ED 11.4->9.0. Will perform an upper endoscopy to evaluate her upper GI tract. If this is negative then she may need a colonoscopy. Acute Thrombocytosis, Leukocytosis, Unclear etiology: Hematology consulted 07/30/2024-we will perform an upper endoscopy today. No etiology of bleeding seen on upper endoscopy. Will prep for colonoscopy tomorrow. 07/31/2024-all questions answered from patient's daughter and the patient. Further recommendations after colonoscopy. 08/01/2024- Findings: The perianal and digital rectal examinations were normal. Pertinent negatives include normal sphincter tone. Non-bleeding external and internal hemorrhoids were found during retroflexion. The hemorrhoids were moderate, large and Grade III (internal hemorrhoids that prolapse but require manual reduction). Multiple small and large-mouthed diverticula were found in the recto-sigmoid colon, sigmoid colon and descending colon. Impression: - Non-bleeding external and internal hemorrhoids. - Diverticulosis in the recto-sigmoid colon, in the sigmoid colon and in the descending colon. - No specimens collected. Recommendation: - [facility]. - Resume regular diet. - Continue present medications. - No repeat colonoscopy due to age. Patient with possible GI blood loss secondary to hemorrhoidal disease versus diverticular bleed. Charges/Coding Visit Charges Inpatient E&M: 02966 [facility] Hosp L3
[2024-08-01 17:54] LABS: Bedside Glucose 109 mg/dL (74-106)
[2024-08-01 17:55] LABS: Bedside Glucose 120 mg/dL (74-106)
[2024-08-01 21:57] LABS: Bedside Glucose 133 mg/dL (74-106)
[2024-08-02] VITALS (8 sets, daily range): BP systolic 115–129; BP diastolic 55–69; PULSE 88–96; RESP 18; TEMP 36.6–37.1; O2SAT 93–98; BMI 23.6
[2024-08-02 05:45] LABS: Bedside Glucose 109 mg/dL (74-106)
[2024-08-02 07:17] LABS: Hematocrit 24.2 % (37-47); Hemoglobin 7.7 g/dL (12.0-15.0); Mean Corp Hgb Conc 31.8 g/dL (32-36); Mean Corpuscular Hgb 27.1 pg (27.0-32.0); Mean Corpuscular Volume 85.2 fL (81-99); POSITIVE COUNT YES; POSITIVE DIFFERENTIAL YES; POSITIVE MORPHOLOGY YES; Platelet Count 658 K/mm3 (150-450); RBC Distribution Width CV 19.6 % (11.6-14.6); RBC Distribution Width SD 59.7 fl (35.1-43.9); Red Blood Count 2.84 M/mm3 (4.2-5.4); White Blood Count 26.3 K/mm3 (4.4-11.0)
[2024-08-02 07:27] LABS: Differential Indicated MANUAL DIFF
--- NOTE | 2024-08-02 08:03 | PN.HOSP_ITS ---
Reason for Visit Reason for Visit: Diagnoses Bandemia (07/29/24) Thrombocytosis, unspecified (07/29/24) Gastrointestinal hemorrhage, unspecified (07/29/24) Subjective Subjective Plan was for patient to discharge home the day prior she was however found to be hypoxic requiring 2 L at rest and 8 L with ambulation. Subsequent chest x-ray demonstrated vascular congestion patient discharge was discontinued started on Lasix ordered proBNP and 2D echo Objective Data Objective Data Vital Signs: Vital Signs Temp Pulse Resp BP Pulse Ox O2 Del Method O2 Flow Rate 97.8 F 93 18 129/64 H 94 Nasal Cannula 3 08/02/24 02:50 08/02/24 02:50 08/02/24 02:50 08/02/24 02:50 08/02/24 02:50 08/02/24 02:50 08/02/24 02:50 Oxygen Flow Rate (L/min) 3 Oxygen Delivery Method Nasal Cannula Weight: 58.5 kg Body Mass Index (BMI) 23.6 Intake & Output: Intake and Output for Last 24 Hours 07/31/24 08/01/24 08/02/24 23:59 23:59 23:59 Intake Total 3220 / 3220 1520 / 1760 240 / 240 Output Total 600 / 600 Balance 3220 / 3220 1520 / 1160 -360 / -360 Lab / Micro Data 08/02/24 06:46 08/01/24 05:07 Labs: Laboratory Results - last 24 hr 07/29/24 19:12: Crossmatch See Detail 07/31/24 04:27: Absolute Neuts (auto) 17.9 H, Absolute Lymphs (auto) 3.30, N eutrophils % (Manual) 76 H, Band Neutrophils % 0, Lymphocytes % (Manual) 14 L, Monocytes % (Manual) 6, Eosinophils % (Manual) 1, Basophils % (Manual) 0, M etamyelocytes % 2 H, Myelocytes % 1 H, Promyelocytes % 0, Reactive Lymphocytes SENIOR TECHNICAL ANALYST, Acanthocytes (Spur) SENIOR TECHNICAL ANALYST 08/01/24 05:07: Diff Path Review Reviewed 08/01/24 11:38: POC Glucose 120 H 08/01/24 15:48: B-Natriuretic Peptide 118.1 H 08/01/24 17:28: POC Glucose 109 H 08/01/24 20:13: POC Glucose 133 H 08/02/24 05:21: POC Glucose 109 H 08/02/24 06:46: WBC 26.3 H, RBC 2.84 L, Hgb 7.7 L, Hct 24.2 L, MCV 85.2, MCH 27.1, MCHC 31.8 L, RDW Std Deviation 59.7 H, RDW Coeff of Venkata 19.6 H, Plt Count 658 H, MPV 10.0, Neut % (Auto) Not Reportable Micro: Microbiology 07/29/24 18:56 Stool Stool Occult Blood (KAJAL) - Final Radiography Diagnostic Testing: Radiology Impression Chest X-Ray 08/01/24 14:40 IMPRESSION: Mild degree of vascular congestion. Large hiatal hernia. Electronically Signed: Rolan Rashid MD at 15:06 EST , Physical Exam Narrative GENERAL: cooperative, appears more energetic compared to previous HEENT: Atraumatic; normocephalic EYES; Anicteric, Normal Conjunctiva NECK; supple, normal thyroid, RESPIRATORY: Diminished to auscultation CARDIOVASCULAR: Regular S1 S2, GI: soft, normoactive bowel sounds, : No Renal angle tenderness; EXTREMITIES: No edema, no clubbing, MUSCULOSKELETAL: no muscle wasting NEURO: Awake; no lateralizing signs. SKIN: No Rash PSYCH; Flat affect Assessment & Plan Assessment/Plan (1) Acute GI bleeding: PLAN: Plan Patient is an 79-year-old lady admitted with bleeding per rectum 1. Acute GI Bleed w/ resultant Acute Blood Loss Anemia with underlying chronic iron deficiency reported per patient: Patient is being admitted in PCU. Stool guaiac negative. Hemoglobin dropped from 11.4->9.0. Iron profile shows serum iron 31, iron saturation 9.1%. TIBC normal. Ferritin 69 normal. Iron infusion ordered. 07/30: GI consulted. Possible will need colonoscopy. -07/31/2024; Patient underwent EGD the day prior colonoscopy was not able to be performed given poor prep and is scheduled to colonoscopy this afternoon. Patient EGD findings and recommendations as below - Abnormal esophageal motility, suspicious for esophageal spasm. - Large hiatal hernia. - No specimens collected. Recommendations : - [facility]. - Full liquid diet. - Continue present medications. Impressions : - Non-bleeding external and internal hemorrhoids. - Diverticulosis in the recto-sigmoid colon, in the sigmoid colon and in the descending colon. - No specimens collected. Recommendations : - [facility] to [facility] for [facility]. - Resume regular diet. - Continue present medications. - No repeat colonoscopy due to age. 2. Anemia ? Secondary to acute blood loss anemia from above, monitoring H&H and transfuse if patient becomes symptomatic or hemoglobin falls below 7 ? 08/01/2024; patient hemoglobin down to 7.2 did start patient on iron supplementation ? 08/02/2024 hemoglobin up to 7.7 3. Acute hypoxia ? Secondary to acute congestive heart failure next?unspecified at this point. Patient was started on Lasix fluid restriction and supplemental oxygen and echo ordered 4. Acute Thrombocytosis, Leukocytosis, - Unclear etiology: Admission CBC with WC 42, platelet count 1675 with previous to this 11/25/2022 CBC with WBC 13.4 and platelet count 770 and high normal 360 and 450 in MayJune 2021. Total WBC count 42K, differential shows 19% band neutrophils, ANC 33.6 K, 7% lymphocyte and 8% myelocytes. Peripheral smear smear shows neutrophilia, monocytosis, normochromic red cell morphology. Chief Learning Officer Dr. 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 PTT normal. ? 07/31/2024; patient seen in consultation by oncology plans for patient to follow-up as 5. Mildly elevated creatinine with baseline CKD stage III -: Admission BUN/creatinine 18/1.1. Slightly elevated. Repeat normal at baseline. Does not meet criteria for STACEY 6. Acute hyperglycemia with no diabetic history - Admission glucose 243, no previous diabetic history, hemoglobin A1c requested, will maintain on Accu-Cheks with insulin sliding scale to be cautious every 6 hours given planned evaluation as noted #1 pending HgbA1c. ? 07/31/2024 hemoglobin A1c was 5.5 not consistent with diabetes 7. Physical deconditioning?age related debility ? Requested for PT OT eval and community mental health social worker to assist with discharge planning 8. DVT prophylaxis ? Bilateral ALEC hoses Time spent in the patient's overall evaluation,decision-making process, review of diagnostic data, adjustment of management, discussion with other providers, nursing nursing and ancillary staff involved in patient's care documentation, 36 Minutes Charges/Coding Visit Charges Inpatient E&M: 96051 [facility] Hosp L2
[2024-08-02 08:10] LABS: Eosinophil 5 % (0-5); Lymphocyte 9 % (19-41); Metamyelocyte 5 % (0-1); Monocyte 8 % (0-10); Myelocyte 2 % (0-0); Neutrophil-Band 1 % (0-5); Neutrophil-Segmented 70 % (47-70); Nucleated Red Bld Cells,Manual 2 % (0-5); Total Cells Counted 100 (MANUAL DIFF)
[2024-08-02 08:11] LABS: Absolute Neutrophil Count 18.7 X10^3/uL (2.0-7.7)
[2024-08-02 08:12] LABS: Absolute Lymphocyte Count 2.37 X10^3/uL (0.83-4.51)
[2024-08-02 08:15] LABS: Platelet Estimate MKD INC (ADEQ); Platelet Morphology LARGE
[2024-08-02 08:16] LABS: Anisocytosis 2+; Microcytosis 1+; Polychromasia 2+
[2024-08-02] MEDS: Iron Polysaccharide Complex 150 MG CAPSULE PO (08:29)
[2024-08-02 09:45] LABS: Anion Gap 7 (5-15); BUN 11 mg/dL (7-18); BUN/Creat Ratio 12.9 RATIO (10-20); Calcium,Total 8.4 mg/dL (8.5-10.1); Chloride 108 mmol/L (98-107); Creatinine, Serum 0.85 mg/dL (0.55-1.02); EST Glomerular Filtration Rate 68 mL/min (>60); Est Glom Filt Rate - Afr Amer 83 mL/min (>60); Estimated Creatinine Clearance 41.75 ml/min; Glucose 103 mg/dL (74-106); Magnesium 1.8 mg/dL (1.6-2.6); Phosphorus 2.7 mg/dL (2.5-4.9); Potassium 3.2 mmol/L (3.5-5.1); Sodium Level 140 mmol/L (136-145)
--- NOTE | 2024-08-02 09:48 | CCN.REFER ---
Social Work SW met w/pt in room, daughter is also present. SW inquired if she may want to consider going somewhere for rehab. Pt states no, she wants to go home. At this time her breathing seems to be the issue more so than her ability. Pt states she is feeling a bit better today. SW remains available should the discharge plan change. MANUEL Dietrich
[2024-08-02] MEDS: Ondansetron 4 MG/2 ML Vial IV (10:35)
[2024-08-02] MEDS: Pantoprazole Sodium 40 MG in 0.9% Normal Saline (100mL MB+) 100 ML 330 MG IV ×2 (10:35→21:51)
[2024-08-02] MEDS: 0.9% Saline Lock 10 ML Syringe IV ×2 (10:35→20:39)
[2024-08-02] MEDS: Menthol/Lanolin/Calamine/Znox 113 GM Tube 1 APPLIC TOPICAL ×2 (10:36→21:50)
[2024-08-02] MEDS: Potassium Chloride Oral Tablet 20 MEQ 40 MEQ PO (12:38)
[2024-08-02] MEDS: Furosemide 20 MG Tablet PO ×2 (12:43→18:39)
[2024-08-02] MEDS: Insulin Lispro 100 UNIT/ML INSULN.PEN SC (12:43)
[2024-08-02 13:09] LABS: Bedside Glucose 224 mg/dL (74-106)
[2024-08-02] MEDS: Acetaminophen 325 MG Tablet 650 MG PO (14:53)
--- NOTE | 2024-08-02 15:25 | CASEMGMT ---
Social Work SW spoke w/pt and daughter again in room, in regard to discharge plan. SW educated pt on HHC, she is agreeable to a referral. Pt does not need a HHC list as she does not have a preference for HHC agency. Pt informed SW that her insurance is changing to [employer] as of August 09. Daughter looked through pt's wallet, she has a [employer] debit card for pt but not insurance card. SW will make a referral to [facility], and see if they would be able to take pt under her new inurance [employer]. SW did call and left a message. SW/CM will continue to follow, order placed for HHC. MANUEL Dietrich
[2024-08-02 17:39] LABS: Bedside Glucose 108 mg/dL (74-106)
[2024-08-02] MEDS: Potassium Chloride Oral Tablet 20 MEQ PO (18:39)
[2024-08-02 23:40] LABS: Bedside Glucose 119 mg/dL (74-106)
[2024-08-03 05:41] VITALS: BMI 22.1
[2024-08-03 06:15] VITALS: BP 108/55; PULSE 85; RESP 16; TEMP 37; O2SAT 95
[2024-08-03 06:53] LABS: Bedside Glucose 99 mg/dL (74-106)
[2024-08-03 07:30] LABS: Mean Corpuscular Hgb 27.2 pg (27.0-32.0); Mean Platelet Vol. 10.6 fl (6.2-12.0); POSITIVE COUNT YES; POSITIVE DIFFERENTIAL YES; POSITIVE MORPHOLOGY YES; Platelet Count 632 K/mm3 (150-450); RBC Distribution Width SD 60.9 fl (35.1-43.9); Red Blood Count 2.94 M/mm3 (4.2-5.4)
[2024-08-03 07:34] LABS: Differential Indicated MANUAL DIFF
[2024-08-03 07:37] VITALS: O2SAT 96
[2024-08-03 07:58] LABS: Anion Gap 4 (5-15); BUN 12 mg/dL (7-18); BUN/Creat Ratio 14.7 RATIO (10-20); Calcium,Total 8.6 mg/dL (8.5-10.1); Chloride 107 mmol/L (98-107); Creatinine, Serum 0.81 mg/dL (0.55-1.02); EST Glomerular Filtration Rate 72 mL/min (>60); Est Glom Filt Rate - Afr Amer 87 mL/min (>60); Estimated Creatinine Clearance 43.81 ml/min; Glucose 95 mg/dL (74-106); Potassium 3.3 mmol/L (3.5-5.1); Sodium Level 139 mmol/L (136-145)
--- NOTE | 2024-08-03 08:24 | PCM.DC.SUM ---
Providers Date of Admission: 07/29/24 Date of Discharge: 08/13/24 Primary Care Physician: Dr. An Law MD Consultations 07/29/24 22:23 Consult: Gastroenterology Routine Consulting Provider: [facility] Reason for Consult: GI bleed, ABLA EMERGENT Consult: No Notified: Yes Date Notified: 07/29/24 Time Notified: 22:23 Method of Notification: ED Physician Initiated 07/30/24 08:00 Consult: Oncology/Hematology Routine Consulting Provider: [facility] Reason for Consult: Thrombocytosis, 1675, leukocytosis, Hematological malignancy? EMERGENT Consult: No Notified: Yes Date Notified: 07/30/24 Time Notified: 08:00 Method of Notification: Text Reason For Visit: GI BLEED, ABLA Diagnosis Discharge Diagnosis (1) Acute GI bleeding: Status: Acute Code(s): K92.2 - Gastrointestinal hemorrhage, unspecified Plan Patient is an 79-year-old lady admitted with bleeding per rectum 1. Acute GI Bleed w/ resultant Acute Blood Loss Anemia with underlying chronic iron deficiency reported per patient: Patient is being admitted in PCU. Stool guaiac negative. Hemoglobin dropped from 11.4->9.0. Iron profile shows serum iron 31, iron saturation 9.1%. TIBC normal. Ferritin 69 normal. Iron infusion ordered. 07/30: GI consulted. Possible will need colonoscopy. -07/31/2024; Patient underwent EGD the day prior colonoscopy was not able to be performed given poor prep and is scheduled to colonoscopy this afternoon. Patient EGD findings and recommendations as below - Abnormal esophageal motility, suspicious for esophageal spasm. - Large hiatal hernia. - No specimens collected. Recommendations : - [facility]. - Full liquid diet. - Continue present medications. Impressions : - Non-bleeding external and internal hemorrhoids. - Diverticulosis in the recto-sigmoid colon, in the sigmoid colon and in the descending colon. - No specimens collected. Recommendations : - [facility]. - Resume regular diet. - Continue present medications. - No repeat colonoscopy due to age. 2. Anemia ? Secondary to acute blood loss anemia from above, monitoring H&H and transfuse if patient becomes symptomatic or hemoglobin falls below 7 ? 08/01/2024; patient hemoglobin down to 7.2 did start patient on iron supplementation ? 08/02/2024 hemoglobin up to 7.7 3. Acute hypoxia ? Secondary to acute congestive heart failure next?unspecified at this point. Patient was started on Lasix fluid restriction and supplemental oxygen and echo ordered ? Patient 2D echo was still pending at the time of discharge plan is for patient to complete the echo as outpatient 4. Acute Thrombocytosis, Leukocytosis, - Unclear etiology: Admission CBC with WC 42, platelet count 1675 with previous to this 11/25/2022 CBC with WBC 13.4 and platelet count 770 and high normal 360 and 450 in MayJune 2021. Total WBC count 42K, differential shows 19% band neutrophils, ANC 33.6 K, 7% lymphocyte and 8% myelocytes. Peripheral smear smear shows neutrophilia, monocytosis, normochromic red cell morphology. Field Collector Dr. 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 PTT normal. ? 07/31/2024; patient seen in consultation by oncology plans for patient to follow-up as 5. Mildly elevated creatinine with baseline CKD stage III -: Admission BUN/creatinine 18/1.1. Slightly elevated. Repeat normal at baseline. Does not meet criteria for STACEY 6. Acute hyperglycemia with no diabetic history - Admission glucose 243, no previous diabetic history, hemoglobin A1c requested, will maintain on Accu-Cheks with insulin sliding scale to be cautious every 6 hours given planned evaluation as noted #1 pending HgbA1c. ? 07/31/2024 hemoglobin A1c was 5.5 not consistent with diabetes 7. Physical deconditioning?age related debility ? Requested for PT OT eval and social media strategist to assist with discharge planning 8. DVT prophylaxis ? Bilateral ALEC walter Time spent in the patient's overall evaluation,decision-making process, review of diagnostic data, adjustment of management, discussion with other providers, nursing nursing and ancillary staff involved in patient's care documentation, 36 Minutes Medications at Discharge Home Medications ascorbic acid (vitamin C) 1,000 mg tablet,extended release (Vitamin C ER) 1,000 mg PO DAILY 06/06/21 cholecalciferol (vitamin D3) 25 mcg (1,000 unit) capsule (Vitamin D3) 25 mcg PO DAILY 06/06/21 vlzmbnhg-tir-CX 0.4 mg-calcium 162 mg-iron 18 nx-aebazjq-nqgfbr tablet 1 tab PO DAILY 06/06/21 pantoprazole 40 mg tablet,delayed release (Protonix) 40 mg PO DAILY #90 tabs 08/01/24 polysaccharide iron complex 150 mg iron capsule (Ferrex) 150 mg PO DAILY #90 caps 08/01/24 furosemide 20 mg tablet 20 mg PO DAILY #90 tabs 08/03/24 polysaccharide iron complex 150 mg iron capsule (Ferrex) 150 mg PO DAILYCM #90 caps 08/03/24 potassium chloride 20 mEq tablet,extended release(part/cryst) 20 meq PO BIDCM #30 tabs 08/03/24 Physical Exam Narrative GENERAL: cooperative, HEENT: Atraumatic; normocephalic EYES; Anicteric, Normal Conjunctiva NECK; supple, normal thyroid, RESPIRATORY: Diminished to auscultation CARDIOVASCULAR: Regular S1 S2, GI: soft, normoactive bowel sounds, : No Renal angle tenderness; EXTREMITIES: No edema, no clubbing, MUSCULOSKELETAL: no muscle wasting NEURO: Awake; no lateralizing signs. SKIN: No Rash PSYCH; Flat affect Weight / BMI Weight Weight: 55 kg Body Mass Index (BMI) 22.1 ABG / Lab / Microbiology Data 08/03/24 06:45 08/03/24 06:38 Laboratory: Laboratory Results - last 24 hr 08/02/24 06:46: Sodium 140, Potassium 3.2 L, Chloride 108 H, Carbon Dioxide 25.0, Anion Gap 7, BUN 11, Creatinine 0.85, Estim Creat Clear Calc 41.75, Est GFR (MDRD) Af Amer 83, Est GFR (MDRD) Non-Af 68, BUN/Creatinine Ratio 12.9, Glucose 103, Calcium 8.4 L, Phosphorus 2.7, Magnesium 1.8 08/02/24 12:36: POC Glucose 224 H 08/02/24 17:02: POC Glucose 108 H 08/02/24 21:25: POC Glucose 119 H 08/03/24 06:22: POC Glucose 99 08/03/24 06:38: Sodium 139, Potassium 3.3 L, Chloride 107, Carbon Dioxide 28.0, Anion Gap 4 L, BUN 12, Creatinine 0.81, Estim Creat Clear Calc 43.81, Est GFR (MDRD) Af Amer 87, Est GFR (MDRD) Non-Af 72, BUN/Creatinine Ratio 14.7, Glucose 95, Calcium 8.6 08/03/24 06:45: WBC 25.0 H, RBC 2.94 L, Hgb 8.0 L, Hct 25.0 L, MCV 85.0, MCH 27.2, MCHC 32.0, RDW Std Deviation 60.9 H, RDW Coeff of Venkata 20.0 H, Plt Count 632 H, MPV 10.6, Neut % (Auto) Not Reportable Microbiology: Microbiology 07/29/24 18:56 Stool Stool Occult Blood (KAJAL) - Final D/C Instructions Discharge Diet: No restrictions Call your doctor if you observe: Fever of 101 or Higher, Shortness of breath, Fainting spells and Chest pain DC O2, CPAP, BIPAP Needs RN Home O2 Qualification: Home O2 Qualification: Is the patient on home oxygen No 08/01/24 12:41 Home O2 Qualification: AT REST 1- Pulse Ox at rest 83 08/01/24 12:41 2- Pulse Ox at rest 93 08/01/24 12:41 2- Oxygen Flow Rate at rest 3 08/01/24 12:41 Home O2 Qualification: WITH AMBULATION 1- Pulse Ox with ambulation 86 08/01/24 12:41 1- Oxygen Flow Rate with 2 08/01/24 12:41 ambulation 2- Pulse Ox with ambulation 84 08/01/24 12:41 2- Oxygen Flow Rate with 3 08/01/24 12:41 ambulation 3- Pulse Ox with ambulation 86 08/01/24 12:41 3- Oxygen Flow Rate with 5 08/01/24 12:41 ambulation 4- Pulse Ox with ambulation 92 08/01/24 12:41 4- Oxygen Flow Rate with 8 08/01/24 12:41 ambulation Home O2 Discharge instructions: No Meaningful Use Info Meaningful Use Meaningful Use Diagnoses (Choose all that apply): CHF CHF NEFTALI/ARB ordered at discharge?: No Reason NEFTALI/ARB not ordered?: Not indicated Documented LVEF (%): 0 Ischemic Stroke Statin Dosing Therapy Reference: STATIN DOSE THERAPY REFERENCE: * Patients > 75 years receive moderate or high dose statin therapy. * Patients 75 years or YOUNGER should receive HIGH intensity statin dose unless contraindicated. You will be required to document reason for non-treatment if statin daily dose does not meet guidelines. HIGH DOSE STATIN THERAPY DAILY Atorvastatin > than or = to 40 mg Rosuvastatin > than or = to 20 mg Amlodipine + Atorvastatin > than or = to 2.5/40 mg Ezetimibe + Simvastatin 10/80 mg Simvastatin 80mg Discharge Plan Admission Admit Date/Time: 07/29/24 21:41 Attending Provider: Milton Allen Primary Care Provider: An Law Consulting Providers: Jaylyn Garrido; Milton Cruz; Tez Hua; Delroy Low; Radha Lynn; Miki Casanova; Jorge Horton; Blake Schmitt; Jake Wolfe; Cora Shaffer LOOM STOP CHECKER; Stoney Webster Discharge Orders/Prescriptions Prescriptions: New polysaccharide iron complex [Ferrex 150] 150 mg iron Capsule 150 mg PO DAILY Qty: 90 0RF pantoprazole [Protonix] 40 mg tablet,delayed release (DR/EC) 40 mg PO DAILY Qty: 90 0RF polysaccharide iron complex [Ferrex 150] 150 mg iron Capsule 150 mg PO DAILYCM Qty: 90 0RF potassium chloride 20 mEq Tablet,Er Particles/Crystals 20 meq PO BIDCM Qty: 30 0RF furosemide 20 mg Tablet 20 mg PO DAILY Qty: 90 0RF Continued Vitamin C 1,000 mg Tablet Extended Release 1,000 mg PO DAILY cholecalciferol (vitamin D3) [Vitamin D3] 25 mcg (1,000 unit) Capsule 25 mcg PO DAILY [id number]-wdd-QJ-Po-Fo-uhbcrcj-lutein 0.4-162-18 mg Tablet 1 tab PO DAILY Other Ambulatory Orders: Echo Complete W/ Contrast (Routine) Timeframe: 1 Week Facility: [facility] - Location: [facility] Ordered By: Dr. Milton Allen Referrals / Follow Up: Tez Hua MD [Med Staff - Active Staff] - In 1 Week An Law MD [Primary Care Provider] - Disposition Disposition (needs filled in before D/C Order can be placed): Home, Self Care Charges/Coding Visit Charges Inpatient E&M: 88724 Disch Hosp >30min
[2024-08-03 09:27] LABS: Basophil 1 % (0-1); Eosinophil 1 % (0-5); Lymphocyte 12 % (19-41); Metamyelocyte 3 % (0-1); Monocyte 3 % (0-10); Myelocyte 2 % (0-0); Neutrophil-Band 2 % (0-5); Neutrophil-Segmented 76 % (47-70); Total Cells Counted 100 (MANUAL DIFF)
[2024-08-03 09:28] LABS: Anisocytosis 2+; Platelet Estimate MKD INC (ADEQ); Platelet Morphology LARGE; Polychromasia 2+
[2024-08-03 09:29] LABS: Acanthocytes RARE; Ovalocyte 1+; Schistocytes RARE
[2024-08-03 09:30] LABS: Absolute Neutrophil Count 19.5 X10^3/uL (2.0-7.7)
[2024-08-03 09:39] VITALS: BP 110/58; PULSE 94; RESP 18; TEMP 36.8; O2SAT 96
[2024-08-03] MEDS: Potassium Chloride Oral Tablet 20 MEQ PO (09:41)
[2024-08-03] MEDS: Iron Polysaccharide Complex 150 MG CAPSULE PO (09:41)
[2024-08-03] MEDS: Furosemide 20 MG Tablet PO (09:41)
[2024-08-03] MEDS: Potassium Chloride Oral Tablet 20 MEQ 40 MEQ PO (09:41)
[2024-08-03] MEDS: Menthol/Lanolin/Calamine/Znox 113 GM Tube 1 APPLIC TOPICAL (09:44)
[2024-08-03 10:05] VITALS: O2SAT 86; O2SAT 87; O2SAT 91; O2SAT 96
--- NOTE | 2024-08-04 13:31 | CASEMGMT ---
Per Sonja, Care Management Director, a PA was received for the pts new Rx for polysaccharide iron complex. TC to the pt at this time, no answer. TC to the pt NOK on file, pt GD. Pt GD states that the pt has already received all of her medications including the iron complex and denies concerns.
[2024-08-04 16:13] LABS: Pathologist Review Reviewed
[2024-08-04 16:14] LABS: Pathologist Review Reviewed
[2024-08-04 16:18] LABS: Pathologist Review Reviewed
--- NOTE | 2024-08-06 08:47 | CASEMGMT ---
Per Ana manriquez/[facility], pt's PCP is Dr. Carvajal and he is requiring pt make an appt before signing off on HH orders. In addition, pts insurance is changing on 08/09. Ana will contact pt/family with this information. Once seen by PCP, she will request a new HH order from him. Heather Warner DC Planning Asst.
== END 2024-08-03 11:03 | disposition home or self-care (01) | DRG 378 ==
LOC: ED 21:29 → PCU 22:00
PROVIDERS: Anesthesiology; Internal Medicine; Internal Medicine Gastroenterology; Admitting Provider Family Medicine; Emergency Provider Emergency Medicine; PCP Obstetrics & Gynecology; Visit Provider Internal Medicine
PROC: 0DJ08ZZ Inspection of Upper Intestinal Tract, Via Natural or Artificial Opening Endoscopic (ICD-10-PCS; CPT 43235; principal; 2024-07-30 16:55)
PROC: 0DJD8ZZ Inspection of Lower Intestinal Tract, Via Natural or Artificial Opening Endoscopic (ICD-10-PCS; CPT 45378; principal; 2024-07-31 11:55)
DX: K92.1 Melena (principal); D62 Acute posthemorrhagic anemia; D47.3 Essential (hemorrhagic) thrombocythemia; I50.9 Heart failure, unspecified; N18.30 Chronic kidney disease, stage 3 unspecified; D50.9 Iron deficiency anemia, unspecified; D72.825 Bandemia; K64.4 Residual hemorrhoidal skin tags; K64.2 Third degree hemorrhoids; K57.30 Diverticulosis of large intestine without perforation or abscess without bleeding; K44.9 Diaphragmatic hernia without obstruction or gangrene; K22.4 Dyskinesia of esophagus; R54 Age-related physical debility; R09.02 Hypoxemia; R73.9 Hyperglycemia, unspecified; Z87.891 Personal history of nicotine dependence
CPT/HCPCS: 36415; 71045; 74174; 80048; 80053; 81001; 82274; 82728; 82962; 83036; 83540; 83550; 83690; 83735; 83880; 84100; 84145; 85014; 85018; 85025; 85610; 85652; 85730; 86140; 86850; 86900; 86901; 93005; 94668; 97116; 97162; 97166; 97530; 97535; 97802; 99285; P9016; Q9957; Q9967; A4216; J1938; J2405; J2916